=== PATIENT | female | born 1960 | race Caucasian/White ===

== ENCOUNTER 2020-01-26 08:02 | Outpatient (REF) | payer OTHER, SELFPAY ==
[2020-01-26 10:22] LABS: MANUAL DIFF FLAG NO
[2020-01-26 10:30] LABS: Basophils Percent Auto 0.6 % (0-2); Eosinophils Absolute Auto 0.1 X10*3/uL (0.0-0.4); Eosinophils Percent Auto 0.7 % (0-4); Hematocrit 40.8 % (37-47); Imm Gran Abs Auto 0.01 X10*3/uL (0.00-0.03); Imm Gran Pct Auto 0.1 % (0.0-0.4); Lymphocytes Absolute Auto 2.7 X10*3/uL (1.2-4.9); Lymphocytes Percent Auto 40.2 % (20-40); Mean Corpuscular HGB Conc 34.3 g/dl (31.0-35.0); Mean Corpuscular Hemoglobin 29.4 pg (27.0-33.0); Mean Corpuscular Volume 85.5 fL (80-98); Mean Platelet Volume 11.3 fL (9.4-12.3); Monocytes Absolute Auto 0.5 X10*3/uL (0.1-1.2); Monocytes Percent Auto 7.1 % (2-11); Neutrophils Absolute Auto 3.5 X10*3/uL (2.0-8.3); Neutrophils Percent Auto 51.3 % (45-73); Platelet Count 204 X10*3/uL (160-400); Red Blood Count 4.77 X10*6/uL (4.20-5.50); White Blood Count 6.8 X10*3/uL (4.8-10.8)
[2020-01-26 10:58] LABS: Alanine Aminotransferase 24 U/L (0-31); Albumin Level 4.6 g/dL (3.5-5.0); Alkaline Phosphatase 69 U/L (39-117); Anion Gap 15 (12-20); Aspartate Amino Transferase 25 U/L (5-31); Bilirubin Total 1.6 mg/dL (0.0-1.0); Blood Urea Nitrogen 15 mg/dL (9-16); C Reactive Protein 0.08 mg/dL (< or = 0.50); Calcium 9.4 mg/dL (8.4-10.2); Carbon Dioxide 24 mmol/L (22-29); Chloride 105 mmol/L (96-108); Estimated Glomerular Filt Rate > 60; Glucose Random 80 mg/dL (60-115); Potassium 4.6 mmol/l (3.3-5.1); Rheumatoid Factor < 15.0 IU/mL (<15.0); Sodium 139 mmol/L (135-145)
[2020-01-26 11:17] LABS: Erythrocyte Sedimentation Rate 3 MM/HR (0-20)
[2020-01-27 12:12] LABS: Complement C3 101 mg/dL (83-193)
[2020-01-27 19:37] LABS: Thyroglobulin Antibodies 7 IU/mL (< or = 1); Thyroid Peroxidase Antibodies 313 IU/mL (<9)
[2020-01-27 21:58] LABS: Prot Elec - Albumin 4.4 g/dL (3.8-4.8); Prot Elec - Alpha1 0.3 g/dL (0.2-0.3); Prot Elec - Alpha2 0.7 g/dL (0.5-0.9); Prot Elec - Beta 1 0.5 g/dL (0.4-0.6); Prot Elec - Beta 2 0.2 g/dL (0.2-0.5); Prot Elec - Gamma 0.9 g/dL (0.8-1.7)
[2020-01-28 11:52] LABS: Cyclic Citrullinated Peptide <16 UNITS
[2020-01-28 13:27] LABS: Anti DNA DS Antibody <1 IU/mL; Antibody to SS-A Antigen <1.0 NEG AI (<1.0 NEG); Antibody to SS-B Antigen <1.0 NEG AI (<1.0 NEG); SM/Ribonucleoprotein Ab <1.0 NEG AI (<1.0 NEG); Scleroderma 70 Antibody <1.0 NEG AI (<1.0 NEG); Smith Protein <1.0 NEG AI (<1.0 NEG)
[2020-01-29 05:27] LABS: IgA 104 mg/dL (47-310); IgG 931 mg/dL (600-1640); IgM 91 mg/dL (50-300)
[2020-01-30 14:07] LABS: Vitamin D 25-OH, D2 <4 ng/mL; Vitamin D 25-OH, D3 38 ng/mL; Vitamin D 25-OH, Total 38 ng/mL (30-100)
== END 2020-01-26 08:03 | disposition home or self-care (01) ==
LOC: HO.LAB 08:02
PROVIDERS: PCP Internal Medicine; Referring Provider Internal Medicine; Visit Provider Student in an Organized Health Care Education/Training Program
DX: M25.50 Pain in unspecified joint (principal); R76.8 Other specified abnormal immunological findings in serum; Z79.899 Other long term (current) drug therapy; Z87.891 Personal history of nicotine dependence
CPT/HCPCS: 36415; 80053; 82306; 82550; 82784; 84155; 84165; 85025; 85652; 86038; 86039; 86140; 86160; 86200; 86225; 86235; 86334; 86376; 86431; 86800; 99202

== ENCOUNTER → 2020-02-04 08:46 | Outpatient (BNVA) | payer OTHER, SELFPAY | PROVIDERS: Visit Provider Internal Medicine Gastroenterology | DX: Z76.89 Persons encountering health services in other specified circumstances (principal) ==

== ENCOUNTER → 2020-02-23 10:46 | Outpatient (BNVA) | payer OTHER, SELFPAY | PROVIDERS: PCP Internal Medicine; Referring Provider Internal Medicine; Visit Provider Student in an Organized Health Care Education/Training Program | DX: Z76.89 Persons encountering health services in other specified circumstances (principal) ==

== ENCOUNTER 2020-04-04 06:01 | Outpatient (REF) | payer OTHER, SELFPAY ==
[2020-04-04 07:20] LABS: MANUAL DIFF FLAG NO
[2020-04-04 07:21] LABS: Basophils Absolute Auto 0.1 X10*3/uL (0.0-0.2); Basophils Percent Auto 0.6 % (0-2); Eosinophils Absolute Auto 0.1 X10*3/uL (0.0-0.4); Eosinophils Percent Auto 1.5 % (0-4); Hematocrit 41.5 % (37-47); Hemoglobin 13.9 g/dl (12.0-16.0); Imm Gran Abs Auto 0.02 X10*3/uL (0.00-0.03); Imm Gran Pct Auto 0.3 % (0.0-0.4); Lymphocytes Percent Auto 37.4 % (20-40); Mean Corpuscular HGB Conc 33.5 g/dl (31.0-35.0); Mean Corpuscular Hemoglobin 29.1 pg (27.0-33.0); Mean Corpuscular Volume 86.8 fL (80-98); Mean Platelet Volume 11.3 fL (9.4-12.3); Monocytes Absolute Auto 0.6 X10*3/uL (0.1-1.2); Neutrophils Absolute Auto 4.2 X10*3/uL (2.0-8.3); Neutrophils Percent Auto 53.2 % (45-73); Platelet Count 264 X10*3/uL (160-400); Red Blood Count 4.78 X10*6/uL (4.20-5.50); Red Cell Distribution Width 12.3 % (11.0-16.0); White Blood Count 7.9 X10*3/uL (4.8-10.8)
[2020-04-04 08:18] LABS: Alanine Aminotransferase 21 U/L (0-31); Albumin Level 4.4 g/dL (3.5-5.0); Alkaline Phosphatase 71 U/L (39-117); Anion Gap 11 (12-20); Aspartate Amino Transferase 25 U/L (5-31); Bilirubin Total 0.3 mg/dL (0.0-1.0); Blood Urea Nitrogen 18 mg/dL (9-16); Calcium 9.2 mg/dL (8.4-10.2); Carbon Dioxide 26 mmol/L (22-29); Chloride 106 mmol/L (96-108); Cholesterol 149 mg/dL; Estimated Glomerular Filt Rate > 60; Glucose Fasting 95 mg/dL (60-99); HDL Cholesterol 53 mg/dL; LDL Cholesterol Calculated 77 mg/dl; Potassium 4.8 mmol/L (3.3-5.1); Sodium 138 mmol/L (135-145); Total Protein 6.8 g/dL (6.5-8.0); Triglycerides 98 mg/dL
[2020-04-04 08:26] LABS: Free T4 (Free Thyroxine) 1.15 ng/dL (0.71-1.85); Thyroid Stimulating Hormone 2.27 uIU/mL (0.32-4.0)
== END 2020-04-04 06:02 | disposition home or self-care (01) ==
LOC: HO.LAB 06:01
PROVIDERS: Visit Provider Internal Medicine
DX: M79.10 Myalgia, unspecified site (principal); I10 Essential (primary) hypertension; E78.00 Pure hypercholesterolemia, unspecified; E03.9 Hypothyroidism, unspecified
CPT/HCPCS: 36415; 80053; 80061; 84439; 84443; 85025

== ENCOUNTER → 2020-04-07 10:26 | Outpatient (BNVA) | payer OTHER, SELFPAY | PROVIDERS: PCP Internal Medicine; Referring Provider Internal Medicine; Visit Provider Internal Medicine Gastroenterology ==

== ENCOUNTER 2020-04-25 10:14 | Outpatient (REF) | payer OTHER, SELFPAY ==
[2020-04-28 11:42] LABS: HPV mRNA E6/E7 rflx Not Detected (Not Detected)
== END 2020-04-25 10:15 | disposition home or self-care (01) ==
LOC: HO.LAB 10:14
PROVIDERS: PCP Internal Medicine; Visit Provider Advanced Practice Midwife
DX: Z01.419 Encounter for gynecological examination (general) (routine) without abnormal findings (principal); Z11.51 Encounter for screening for human papillomavirus (HPV); N95.2 Postmenopausal atrophic vaginitis
CPT/HCPCS: 36415; 87624; 88142

== ENCOUNTER → 2020-06-29 09:24 | Outpatient (BNVA) | payer OTHER, SELFPAY | PROVIDERS: PCP Internal Medicine; Visit Provider Internal Medicine Cardiovascular Disease | DX: E78.00 Pure hypercholesterolemia, unspecified (principal); I10 Essential (primary) hypertension | CPT/HCPCS: 93005; 99212 ==

== ENCOUNTER → 2020-08-11 09:57 | Outpatient (BNVA) | payer OTHER, SELFPAY | PROVIDERS: PCP Internal Medicine; Visit Provider Internal Medicine Gastroenterology ==

== ENCOUNTER 2020-12-02 06:04 | Outpatient (REF) | payer OTHER, SELFPAY ==
[2020-12-02 06:10] LABS: MANUAL DIFF FLAG NO
[2020-12-02 07:28] LABS: Basophils Absolute Auto 0.1 X10*3/uL (0.0-0.2); Basophils Percent Auto 0.6 % (0-2); Eosinophils Absolute Auto 0.2 X10*3/uL (0.0-0.4); Eosinophils Percent Auto 1.9 % (0-4); Hematocrit 41.2 % (37-47); Hemoglobin 13.9 g/dl (12.0-16.0); Imm Gran Abs Auto 0.03 X10*3/uL (0.00-0.03); Imm Gran Pct Auto 0.4 % (0.0-0.4); Lymphocytes Absolute Auto 2.8 X10*3/uL (1.2-4.9); Lymphocytes Percent Auto 33.9 % (20-40); Mean Corpuscular HGB Conc 33.7 g/dl (31.0-35.0); Mean Corpuscular Hemoglobin 29.5 pg (27.0-33.0); Mean Corpuscular Volume 87.5 fL (80-98); Mean Platelet Volume 10.7 fL (9.4-12.3); Monocytes Absolute Auto 0.6 X10*3/uL (0.1-1.2); Monocytes Percent Auto 7.7 % (2-11); Neutrophils Absolute Auto 4.6 X10*3/uL (2.0-8.3); Neutrophils Percent Auto 55.5 % (45-73); Platelet Count 209 X10*3/uL (160-400); Red Blood Count 4.71 X10*6/uL (4.20-5.50); Red Cell Distribution Width 12.5 % (11.0-16.0); White Blood Count 8.2 X10*3/uL (4.8-10.8)
[2020-12-02 07:50] LABS: Alanine Aminotransferase 25 U/L (0-31); Albumin Level 4.5 g/dL (3.5-5.0); Alkaline Phosphatase 71 U/L (39-117); Anion Gap 11 (12-20); Aspartate Amino Transferase 25 U/L (5-31); Blood Urea Nitrogen 17 mg/dL (9-16); Calcium 9.8 mg/dL (8.4-10.2); Carbon Dioxide 28 mmol/L (22-29); Chloride 105 mmol/L (96-108); Cholesterol 185 mg/dL; Estimated Glomerular Filt Rate > 60; Glucose Fasting 83 mg/dL (60-99); HDL Cholesterol 57 mg/dL; LDL Cholesterol Calculated 107 mg/dl; Potassium 4.7 mmol/L (3.3-5.1); Sodium 139 mmol/L (135-145); Total Protein 7.1 g/dL (6.5-8.0); Triglycerides 107 mg/dL
[2020-12-02 08:09] LABS: Erythrocyte Sedimentation Rate 2 MM/HR (0-20)
[2020-12-02 08:15] LABS: Free T4 (Free Thyroxine) 0.99 ng/dL (0.71-1.85); Thyroid Stimulating Hormone 2.96 uIU/mL (0.32-4.0); Vitamin D 25-OH Total 39.1 ng/mL (>30)
[2020-12-02 10:38] LABS: Appearance Urine CLEAR; Color Urine YELLOW; Glucose Urine UA NEG (NEG); Leukocyte Esterase Urine NEG (NEG); Nitrite Urine NEG (NEG); Specific Gravity - Urine 1.015 (1.005-1.025); UACC Culture Trigger NO; Urine Blood TRACE (NEG); Urine Ketones NEG (NEG); Urine Protein NEG (NEG-TRACE)
[2020-12-02 11:07] LABS: WBC Urine 0 /HPF (0-4)
[2020-12-02 11:08] LABS: Mucus Urine TRACE /LPF; Squamous Epithelial Cell Urine TRACE /LPF
== END 2020-12-02 06:05 | disposition home or self-care (01) ==
LOC: HO.LAB 06:04
PROVIDERS: PCP Internal Medicine; Visit Provider Internal Medicine
DX: M25.50 Pain in unspecified joint (principal); M79.10 Myalgia, unspecified site; I10 Essential (primary) hypertension; E55.9 Vitamin D deficiency, unspecified; E03.9 Hypothyroidism, unspecified; E78.00 Pure hypercholesterolemia, unspecified
CPT/HCPCS: 36415; 80053; 80061; 81001; 81003; 82306; 84439; 84443; 85025; 85652

== ENCOUNTER 2020-12-21 08:05 | Outpatient (REF) | payer OTHER, SELFPAY ==
--- NOTE | ~2020-12-21 | MM_ITS ---
EXAMINATION: MM SCREENING DIGITAL BREAST TOMOSYNTHESIS, BILATERAL CLINICAL INFORMATION: Screening. Asymptomatic. The lifetime risk of breast cancer based on the Tyrer-Cuzick Model is 7%. COMPARISON: Mammography: 11/12/2019, 09/09/2018, outside mammography 11/26/2014 ([facility]). TECHNIQUE: Digital breast tomosynthesis is performed in both the craniocaudal and mediolateral oblique views along with computer-aided detection (CAD). Synthesized 2D images are generated from the tomosynthesis. FINDINGS: The breasts are heterogeneously dense, which may obscure small masses (ACR BI-RADS breast composition Category c). There are no significant masses, abnormal calcifications, or other abnormalities. Parenchymal pattern is similar to prior exams. No developing density. The axilla and skin contours are unremarkable. MM/MM tomosynthesis screening BI IMPRESSION: No mammographic evidence of malignancy. ASSESSMENT: BI-RADS 1: Negative RECOMMENDATION: Routine annual mammography screening. This patient's information was entered into a reminder system with a target due date for their next mammogram.
== END 2020-12-21 08:06 | disposition home or self-care (01) ==
LOC: HO.MAMMO 08:05
PROVIDERS: Visit Provider Internal Medicine
DX: Z12.31 Encounter for screening mammogram for malignant neoplasm of breast (principal)
CPT/HCPCS: 77063; 77067

== ENCOUNTER → 2021-03-20 10:07 | Outpatient (BNVA) | payer OTHER, SELFPAY | PROVIDERS: PCP Internal Medicine; Visit Provider Internal Medicine Gastroenterology ==

== ENCOUNTER 2021-04-15 07:00 | Outpatient (REF) | payer OTHER, SELFPAY ==
[2021-04-15 07:13] LABS: MANUAL DIFF FLAG NO
[2021-04-15 08:03] LABS: Basophils Percent Auto 0.5 % (0-2); Eosinophils Absolute Auto 0.1 X10*3/uL (0.0-0.4); Eosinophils Percent Auto 1.6 % (0-4); Hematocrit 41.7 % (37.0-47.0); Imm Gran Abs Auto 0.03 X10*3/uL (0.00-0.03); Imm Gran Pct Auto 0.4 % (0.0-0.4); Lymphocytes Absolute Auto 3.5 X10*3/uL (1.2-4.9); Lymphocytes Percent Auto 43.3 % (20-40); Mean Corpuscular HGB Conc 33.6 g/dl (31.0-35.0); Mean Corpuscular Hemoglobin 29.5 pg (27.0-33.0); Mean Corpuscular Volume 87.8 fL (80.0-98.0); Mean Platelet Volume 10.9 fL (9.4-12.3); Monocytes Absolute Auto 0.5 X10*3/uL (0.1-1.2); Monocytes Percent Auto 6.1 % (2-11); Neutrophils Absolute Auto 3.9 x10*3/uL (2.0-8.3); Neutrophils Percent Auto 48.1 % (45-73); Platelet Count 239 X10*3/uL (160-400); Red Blood Count 4.75 X10*6/uL (4.20-5.50); Red Cell Distribution Width 12.2 % (11.0-16.0)
[2021-04-15 08:27] LABS: Albumin Level 4.6 g/dL (3.5-5.0)
[2021-04-15 08:29] LABS: Glucose Fasting 81 mg/dL (60-99)
[2021-04-15 08:30] LABS: Total Protein 7.4 g/dL (6.5-8.0)
[2021-04-15 08:31] LABS: Anion Gap 12 (12-20); Bilirubin Total 1.1 mg/dL (0.0-1.0); Carbon Dioxide 27 mmol/L (22-29)
[2021-04-15 08:32] LABS: Alkaline Phosphatase 70 U/L (39-117)
[2021-04-15 08:33] LABS: Estimated Glomerular Filt Rate > 60
[2021-04-15 08:34] LABS: Blood Urea Nitrogen 18 mg/dL (9-16)
[2021-04-15 08:35] LABS: Alanine Aminotransferase 26 U/L (0-31); Aspartate Amino Transferase 27 U/L (5-31); Cholesterol 188 mg/dL; HDL Cholesterol 58 mg/dL
[2021-04-15 08:51] LABS: Appearance Urine CLEAR; Color Urine YELLOW; Glucose Urine UA NEG (NEG); Leukocyte Esterase Urine NEG (NEG); Nitrite Urine NEG (NEG); UACC Culture Trigger NO; Urine Blood TRACE (NEG); Urine Ketones NEG (NEG); Urine Protein NEG (NEG-TRACE)
[2021-04-15 08:52] LABS: Vitamin D 25-OH Total 41.7 ng/mL (>30)
[2021-04-15 08:53] LABS: Chloride 104 mmol/L (96-108); Free T4 (Free Thyroxine) 0.92 ng/dL (0.71-1.85); LDL Cholesterol Calculated 110 mg/dl; Potassium 4.9 mmol/L (3.3-5.1); Sodium 138 mmol/L (135-145); Triglycerides 101 mg/dL
[2021-04-15 09:16] LABS: WBC Urine 0 /HPF (0-4)
== END 2021-04-15 07:01 | disposition home or self-care (01) ==
LOC: HO.LAB 07:00
PROVIDERS: PCP Internal Medicine; Visit Provider Internal Medicine
DX: I10 Essential (primary) hypertension (principal); E55.9 Vitamin D deficiency, unspecified; E03.9 Hypothyroidism, unspecified; E78.00 Pure hypercholesterolemia, unspecified
CPT/HCPCS: 36415; 80053; 80061; 81001; 82306; 84439; 84443; 85025

== ENCOUNTER → 2021-07-19 07:58 | Outpatient (BNVA) | payer OTHER, SELFPAY | PROVIDERS: PCP Internal Medicine; Visit Provider Advanced Practice Midwife | DX: Z01.419 Encounter for gynecological examination (general) (routine) without abnormal findings (principal) ==

== ENCOUNTER 2021-09-04 11:27 | Outpatient (REF) | payer OTHER, SELFPAY ==
--- NOTE | ~2021-09-04 | XR_ITS ---
EXAMINATION: XR TOES, RIGHT CLINICAL INFORMATION: Erythema and swelling of right second toe. COMPARISON: None TECHNIQUE: Frontal, oblique and lateral views of the right toes were obtained. FINDINGS: Bony alignment and mineralization are normal. No fracture or dislocation is seen. There is a small round ossific density noted at the dorsal medial aspect of the distal interphalangeal joint of the right second toe. There is no soft tissue gas or foreign body. XR/XR toe RT min 2V IMPRESSION: A small round ossific density at the dorsal medial aspect of the right second toe represent a tiny avulsion fragment or, alternatively, a degenerative periarticular calcification. Please correlate clinically.
== END 2021-09-04 11:28 | disposition home or self-care (01) ==
LOC: HO.XRAY 11:27
PROVIDERS: PCP Internal Medicine; Visit Provider Internal Medicine
DX: M79.674 Pain in right toe(s) (principal); L81.9 Disorder of pigmentation, unspecified
CPT/HCPCS: 73660

== ENCOUNTER 2021-09-10 | Outpatient (REF) | payer OTHER, SELFPAY ==
[2021-09-15 08:09] LABS: FIT Int Ctl YES; FIT1 NEGATIVE (NEGATIVE); FIT2 NEGATIVE (NEGATIVE)
== END 2021-09-10 00:01 | disposition home or self-care (01) ==
LOC: HO.LNP
PROVIDERS: Visit Provider Internal Medicine Gastroenterology
DX: Z12.11 Encounter for screening for malignant neoplasm of colon (principal)
CPT/HCPCS: 82274

== ENCOUNTER 2021-10-17 15:07 | Outpatient (REF) | payer OTHER, SELFPAY ==
[2021-10-17 15:30] LABS: MANUAL DIFF FLAG NO
[2021-10-17 16:26] LABS: Basophils Absolute Auto 0.1 X10*3/uL (0.0-0.2); Basophils Percent Auto 0.5 % (0-2); Eosinophils Absolute Auto 0.2 X10*3/uL (0.0-0.4); Eosinophils Percent Auto 1.9 % (0-4); Hematocrit 40.9 % (37.0-47.0); Hemoglobin 13.8 g/dl (12.0-16.0); Imm Gran Abs Auto 0.02 X10*3/uL (0.00-0.03); Imm Gran Pct Auto 0.2 % (0.0-0.4); Lymphocytes Absolute Auto 3.8 X10*3/uL (1.2-4.9); Lymphocytes Percent Auto 38.1 % (20-40); Mean Corpuscular HGB Conc 33.7 g/dl (31.0-35.0); Mean Corpuscular Hemoglobin 28.8 pg (27.0-33.0); Mean Corpuscular Volume 85.4 fL (80.0-98.0); Monocytes Absolute Auto 0.7 X10*3/uL (0.1-1.2); Monocytes Percent Auto 6.8 % (2-11); Neutrophils Absolute Auto 5.2 x10*3/uL (2.0-8.3); Neutrophils Percent Auto 52.5 % (45-73); Platelet Count 220 X10*3/uL (160-400); Red Blood Count 4.79 X10*6/uL (4.20-5.50); Red Cell Distribution Width 12.3 % (11.0-16.0); White Blood Count 9.9 X10*3/uL (4.8-10.8)
[2021-10-17 16:52] LABS: Alanine Aminotransferase 22 U/L (0-31); Albumin Level 4.6 g/dL (3.5-5.0); Alkaline Phosphatase 63 U/L (39-117); Anion Gap 15 (12-20); Aspartate Amino Transferase 25 U/L (5-31); Bilirubin Total 0.7 mg/dL (0.0-1.0); Blood Urea Nitrogen 17 mg/dL (9-16); C Reactive Protein 0.11 mg/dL (< or = 0.50); Calcium 9.7 mg/dL (8.4-10.2); Carbon Dioxide 24 mmol/L (22-29); Chloride 102 mmol/L (96-108); Estimated Glomerular Filt Rate > 60; Glucose Random 78 mg/dL (60-115); Potassium 4.4 mmol/L (3.3-5.1); Rheumatoid Factor < 15.0 IU/mL (<15.0); Sodium 137 mmol/L (135-145); Total Protein 7.4 g/dL (6.5-8.0)
[2021-10-17 17:11] LABS: TSH reflex Free T4 4.13 uIU/mL (0.32-4.0); Vitamin D 25-OH Total 41.3 ng/mL (>30)
[2021-10-17 17:15] LABS: Erythrocyte Sedimentation Rate 7 MM/HR (0-20)
[2021-10-19 15:42] LABS: Cyclic Citrullinated Peptide <16 UNITS
[2021-10-24 23:47] LABS: Anti Nuclear Antibody Screen POSITIVE (NEGATIVE)
== END 2021-10-17 15:08 | disposition home or self-care (01) ==
LOC: HO.LAB 15:07
PROVIDERS: PCP Internal Medicine; Visit Provider Internal Medicine
DX: E55.9 Vitamin D deficiency, unspecified (principal); M32.9 Systemic lupus erythematosus, unspecified; M79.7 Fibromyalgia; M25.50 Pain in unspecified joint
CPT/HCPCS: 36415; 80053; 82306; 84439; 84443; 85025; 85652; 86038; 86039; 86140; 86200; 86431

== ENCOUNTER → 2021-11-13 08:53 | Outpatient (BNVA) | payer OTHER, SELFPAY | PROVIDERS: PCP Internal Medicine; Referring Provider Internal Medicine; Visit Provider Internal Medicine Cardiovascular Disease | DX: E78.00 Pure hypercholesterolemia, unspecified (principal); I10 Essential (primary) hypertension | CPT/HCPCS: 93005; 99212 ==

== ENCOUNTER 2021-11-17 10:30 | Outpatient (REF) | payer OTHER, SELFPAY ==
[2021-11-17 10:54] LABS: MANUAL DIFF FLAG NO
[2021-11-17 11:34] LABS: Basophils Absolute Auto 0.1 X10*3/uL (0.0-0.2); Basophils Percent Auto 0.4 % (0-2); Eosinophils Absolute Auto 0.1 X10*3/uL (0.0-0.4); Eosinophils Percent Auto 0.4 % (0-4); Hematocrit 40.8 % (37.0-47.0); Hemoglobin 13.9 g/dl (12.0-16.0); Imm Gran Abs Auto 0.05 X10*3/uL (0.00-0.03); Imm Gran Pct Auto 0.4 % (0.0-0.4); Lymphocytes Absolute Auto 4.1 X10*3/uL (1.2-4.9); Lymphocytes Percent Auto 30.4 % (20-40); Mean Corpuscular HGB Conc 34.1 g/dl (31.0-35.0); Mean Corpuscular Hemoglobin 29.2 pg (27.0-33.0); Mean Corpuscular Volume 85.7 fL (80.0-98.0); Mean Platelet Volume 10.8 fL (9.4-12.3); Monocytes Percent Auto 7.1 % (2-11); Neutrophils Absolute Auto 8.4 x10*3/uL (2.0-8.3); Neutrophils Percent Auto 61.3 % (45-73); Platelet Count 250 X10*3/uL (160-400); Red Blood Count 4.76 X10*6/uL (4.20-5.50); Red Cell Distribution Width 12.4 % (11.0-16.0); White Blood Count 13.6 X10*3/uL (4.8-10.8)
[2021-11-17 12:20] LABS: Alanine Aminotransferase 38 U/L (0-31); Alkaline Phosphatase 71 U/L (39-117); Anion Gap 16 (12-20); Aspartate Amino Transferase 27 U/L (5-31); Bilirubin Total 0.6 mg/dL (0.0-1.0); Blood Urea Nitrogen 20 mg/dL (9-16); C Reactive Protein 0.11 mg/dL (< or = 0.50); Calcium 10.4 mg/dL (8.4-10.2); Carbon Dioxide 28 mmol/L (22-29); Chloride 100 mmol/L (96-108); Estimated Glomerular Filt Rate > 60; Glucose Random 89 mg/dL (60-115); Sodium 140 mmol/L (135-145); Total Protein 7.7 g/dL (6.5-8.0)
[2021-11-17 13:04] LABS: Erythrocyte Sedimentation Rate 6 MM/HR (0-20)
[2021-11-17 13:47] LABS: Appearance Urine Clear; Color Urine Yellow; Glucose Urine UA Negative (Negative); Leukocyte Esterase Urine Negative (Negative); Nitrite Urine Negative (Negative); PH 6.5 (5.0-9.0); Specific Gravity - Urine <= 1.005 (1.005-1.025); Urine Blood Negative (Negative); Urine Ketones Negative (Negative); Urine Protein Negative (Neg-Trace)
[2021-11-17 13:50] LABS: Bacteria Urine None Seen (None Seen); Hyaline Casts Urine 0-2 /LPF (0-2); RBC Urine 0-2 /HPF (0-2); Squamous Epithelial Cell Urine 0-2 /HPF (0-2); WBC Urine 0-5 /HPF (0-5)
[2021-11-17 14:10] LABS: Creatinine Urine 16.76 mg/dL; Total Protein Urine Random < 7 mg/dL (<12)
[2021-11-17 16:25] LABS: Phosphorus 3.7 mg/dL (2.7-4.5)
[2021-11-20 12:07] LABS: Complement C3 105 mg/dL (83-193)
[2021-11-20 17:01] LABS: Anti DNA DS Antibody <1 IU/mL; Antibody to SS-A Antigen <1.0 NEG AI (<1.0 NEG); Antibody to SS-B Antigen <1.0 NEG AI (<1.0 NEG); SM/Ribonucleoprotein Ab <1.0 NEG AI (<1.0 NEG); Smith Protein <1.0 NEG AI (<1.0 NEG)
[2021-11-20 18:56] LABS: IgA 126 mg/dL (70-320); IgG 1139 mg/dL (600-1540); IgM 94 mg/dL (50-300)
[2021-11-20 21:07] LABS: Prot Elec - Albumin 4.9 g/dL (3.8-4.8); Prot Elec - Alpha1 0.3 g/dL (0.2-0.3); Prot Elec - Alpha2 0.8 g/dL (0.5-0.9); Prot Elec - Beta 1 0.5 g/dL (0.4-0.6); Prot Elec - Beta 2 0.2 g/dL (0.2-0.5); Prot Elec - Gamma 1.1 g/dL (0.8-1.7); Prot Elec - Total Protein 7.8 g/dL (6.1-8.1)
[2021-11-21 23:47] LABS: Beta-2 Glycoprotein IgA <2.0 U/mL (<20.0); Beta-2 Glycoprotein IgG <2.0 U/mL (<20.0); Beta-2 Glycoprotein IgM 2.8 U/mL (<20.0)
[2021-11-22 05:56] LABS: DRVVT 1:1 Mix Interpretation Not Indicated; PTT (LAC) Screen 32 sec (<=40)
[2021-11-22 15:52] LABS: Vitamin D 25-OH, D2 <4 ng/mL; Vitamin D 25-OH, D3 37 ng/mL; Vitamin D 25-OH, Total 37 ng/mL (30-100)
[2021-11-22 19:07] LABS: VITAMIN D (1,25 OH) D3 55 pg/mL; Vit D (1,25-Dihydroxy) Total 55 pg/mL (18-72); Vitamin D (1,25 OH) D2 <8 pg/mL
[2021-11-23 13:02] LABS: Cardiolipin IgG Ab <2.0 GPL-U/mL; Cardiolipin IgM Ab <2.0 MPL-U/mL
== END 2021-11-17 10:31 | disposition home or self-care (01) ==
LOC: HO.10HDL 10:30
PROVIDERS: Visit Provider Student in an Organized Health Care Education/Training Program
DX: M32.9 Systemic lupus erythematosus, unspecified (principal); R76.8 Other specified abnormal immunological findings in serum; E83.52 Hypercalcemia; M79.7 Fibromyalgia
CPT/HCPCS: 36415; 80053; 81001; 82306; 82652; 82784; 83735; 84100; 84156; 84165; 85025; 85597; 85613; 85652; 85730; 86140; 86146; 86147; 86160; 86225; 86235; 86334; 99212

== ENCOUNTER 2021-11-30 06:07 | Outpatient (REF) | payer OTHER, SELFPAY ==
[2021-11-30 11:31] LABS: Cholesterol 200 mg/dL; HDL Cholesterol 61 mg/dL; LDL Cholesterol Calculated 124 mg/dl; Triglycerides 77 mg/dL
== END 2021-11-30 06:08 | disposition home or self-care (01) ==
LOC: HO.HMGCLDS 06:07
PROVIDERS: PCP Internal Medicine; Visit Provider Internal Medicine
DX: E78.00 Pure hypercholesterolemia, unspecified (principal)
CPT/HCPCS: 36415; 80061

== ENCOUNTER → 2021-12-15 07:57 | Outpatient (BNVA) | payer OTHER, SELFPAY | PROVIDERS: PCP Internal Medicine; Visit Provider Student in an Organized Health Care Education/Training Program | DX: L93.2 Other local lupus erythematosus (principal); Z51.81 Encounter for therapeutic drug level monitoring; Z79.899 Other long term (current) drug therapy; M79.7 Fibromyalgia; R74.01 Elevation of levels of liver transaminase levels | CPT/HCPCS: 99212 ==

== ENCOUNTER 2021-12-26 08:08 | Outpatient (REF) | payer OTHER, SELFPAY ==
--- NOTE | ~2021-12-26 | MM_ITS ---
EXAMINATION: MM SCREENING DIGITAL BREAST TOMOSYNTHESIS, BILATERAL CLINICAL INFORMATION: Screening. Asymptomatic. The lifetime risk of breast cancer based on the Tyrer-Cuzick Model is 6.2%. COMPARISON: Mammography: 12/21/2020 and studies dating back to 11/26/2014. TECHNIQUE: Digital breast tomosynthesis is performed in both the craniocaudal and mediolateral oblique views along with computer-aided detection (CAD). Synthesized 2-D images are generated from the tomosynthesis. FINDINGS: The breasts are heterogeneously dense, which may obscure small masses (ACR BI-RADS breast composition Category c). There is a developing tight grouping of microcalcifications about the upper outer aspect of the right breast approximately 7 cm from the nipple, for which spot magnification views in craniocaudal and 90-degree mediolateral views are recommended. There is stable appearance of the left breast with no new abnormal dominant mass or suspicious grouping of microcalcifications. MM/MM tomosynthesis screening BI IMPRESSION: Right breast calcifications for further evaluation, as described. ASSESSMENT: BI-RADS 0: Incomplete - Need Additional Imaging Evaluation RECOMMENDATION: 1. Additional views of the right breast. 2. Targeted ultrasound if warranted after review of the additional views. 3. Radiology department staff will contact the patient for additional imaging. This patient's information was entered into a reminder system with a target due date for their next mammogram.
== END 2021-12-26 08:09 | disposition home or self-care (01) ==
LOC: HO.MAMMO 08:08
PROVIDERS: Visit Provider Internal Medicine
DX: Z12.31 Encounter for screening mammogram for malignant neoplasm of breast (principal)
CPT/HCPCS: 77063; 77067

== ENCOUNTER 2022-01-01 08:48 | Outpatient (REF) | payer OTHER, SELFPAY ==
--- NOTE | ~2022-01-01 | MM_ITS ---
EXAMINATION: MM DIAGNOSTIC DIGITAL MAMMOGRAPHY, RIGHT CLINICAL INFORMATION: Recall from screening for tightly grouped calcifications posterior 11:30 right breast. COMPARISON: Mammography: 12/26/2021, 12/21/2020, 11/12/2019 TECHNIQUE: Digital mammography is performed in the following views: Magnification CC x2, magnification ML. FINDINGS: The breasts are heterogeneously dense, which may obscure small masses (ACR BI-RADS breast composition Category c). The calcifications for further assessment are tightly grouped, coarse amorphous. This represents change from prior imaging. Results are discussed with the patient at time of visit. Management options discussed with patient. Patient is in favor of stereotactic sampling. MM/MM added views RT IMPRESSION: -Multiple tightly grouped amorphous coarse calcifications posterior 11:30 right breast. ASSESSMENT: BI-RADS 4: Suspicious (subcategory 4A: Low suspicion for malignancy) RECOMMENDATION: Stereotactic sampling right breast calcifications. This patient's information was entered into a reminder system with a target due date for their next mammogram.
== END 2022-01-01 08:49 | disposition home or self-care (01) ==
LOC: HO.MAMMO 08:48
PROVIDERS: PCP Internal Medicine; Visit Provider Internal Medicine
DX: R92.1 Mammographic calcification found on diagnostic imaging of breast (principal)
CPT/HCPCS: 77065

== ENCOUNTER 2022-01-04 09:34 | Outpatient (REF) | payer OTHER, SELFPAY ==
--- NOTE | ~2022-01-04 | MM_ITS ---
EXAMINATION: STEREOTACTIC TOMOSYNTHESIS-GUIDED VACUUM-ASSISTED BREAST BIOPSY, RIGHT SPECIMEN RADIOGRAPH, RIGHT POST PROCEDURE DIGITAL MAMMOGRAM, RIGHT CLINICAL INFORMATION: Tightly grouped amorphous coarse calcifications posterior central 11:30 right breast. COMPARISON: Mammography 01/01/2022, 12/26/2021, 12/21/2020. TECHNIQUE/PROCEDURE: Informed consent was obtained from the patient after discussion of the benefits, risks, and alternatives to biopsy today. Patient appeared to understand. Gave opportunity for questions. Patient signed consent form. BIOPSY TABLE: [employer]ify Affirm Prone Biopsy System. LESION: Tightly grouped amorphous coarse calcifications posterior central 11:30 right breast. LOCAL ANESTHESIA: 10 mL carbonated 1% lidocaine; 10 mL 2% lidocaine with epinephrine. DERMATOTOMY: Single skin theresa dermatotomy performed. NEEDLE: N[employer] Fiftyiva 9-gauge vacuum assisted core biopsy device. APPROACH: Craniocaudal. TARGETING: Combination of digital breast tomosynthesis and stereotactic digital mammography used for targeting. CORES: 7. CLIP: Qwikwire SecurMark Cylinder-shaped marker. SPECIMEN RADIOGRAPH: Specimen radiograph is taken in separate room using digital mammography. The index calcifications are in the excised cores. There are at least 20 calcifications in the cores. POST PROCEDURE UNILATERAL DIGITAL MAMMOGRAM: The post biopsy mammogram is performed in separate room using separate digital mammography equipment from the biopsy procedure. CC and ML views are obtained. The breasts are heterogeneously dense, which may obscure small masses (breast composition category: c). The clip marker is in position. The calcifications are markedly decreased at the biopsy site. No gross hematoma. The patient tolerated the procedure well. No immediate complications. Home instructions reviewed with the patient. Final pathology results are pending. MM/MM stereotactic biopsy RT IMPRESSION: 1. Digital tomosynthesis-guided core biopsy right breast with clip placement. 2. Specimen radiograph taken and post procedure mammogram. There is satisfactory positioning of the biopsy clip. 3. Final pathology results pending. An addendum report will be issued.
[2022-01-04] MEDS: Lidocaine HCl 1 % 20 ML VIAL 10 ML SUBCUT (11:22)
[2022-01-04] MEDS: Sodium Bicarbonate 8.4% 50 MEQ/50 ML VIAL SUBCUT (11:23)
[2022-01-04] MEDS: Lidocaine HCl 2 % 20 ML VIAL 10 ML SUBCUT (11:25)
== END 2022-01-04 09:35 | disposition home or self-care (01) ==
LOC: HO.MAMMO 09:34
PROVIDERS: PCP Internal Medicine; Visit Provider Surgery
DX: R92.1 Mammographic calcification found on diagnostic imaging of breast (principal)
CPT/HCPCS: 19081; 88305; 99202; A4648

== ENCOUNTER → 2022-01-10 09:30 | Outpatient (BNVA) | payer OTHER, SELFPAY | PROVIDERS: PCP Internal Medicine; Visit Provider Surgery | DX: R92.1 Mammographic calcification found on diagnostic imaging of breast (principal) | CPT/HCPCS: 99212 ==

== ENCOUNTER 2022-01-11 06:11 | Outpatient (REF) | payer OTHER, SELFPAY ==
[2022-01-11 11:24] LABS: MANUAL DIFF FLAG NO
[2022-01-11 11:30] LABS: Appearance Urine Clear; Color Urine Yellow; Glucose Urine UA Negative (Negative); Leukocyte Esterase Urine Negative (Negative); Nitrite Urine Negative (Negative); PH 6.5 (5.0-9.0); Specific Gravity - Urine <= 1.005 (1.005-1.025); Urine Blood Negative (Negative); Urine Ketones Negative (Negative); Urine Protein Negative (Neg-Trace)
[2022-01-11 11:45] LABS: Basophils Absolute Auto 0.1 X10*3/uL (0.0-0.2); Eosinophils Absolute Auto 0.3 X10*3/uL (0.0-0.4); Eosinophils Percent Auto 4.2 % (0-4); Hematocrit 40.3 % (37.0-47.0); Hemoglobin 13.5 g/dl (12.0-16.0); Imm Gran Abs Auto 0.02 X10*3/uL (0.00-0.03); Imm Gran Pct Auto 0.3 % (0.0-0.4); Lymphocytes Absolute Auto 2.9 X10*3/uL (1.2-4.9); Lymphocytes Percent Auto 37.6 % (20-40); Mean Corpuscular HGB Conc 33.5 g/dl (31.0-35.0); Mean Corpuscular Hemoglobin 29.2 pg (27.0-33.0); Mean Platelet Volume 10.9 fL (9.4-12.3); Monocytes Absolute Auto 0.6 X10*3/uL (0.1-1.2); Monocytes Percent Auto 7.3 % (2-11); Neutrophils Absolute Auto 3.9 x10*3/uL (2.0-8.3); Neutrophils Percent Auto 49.6 % (45-73); Platelet Count 224 X10*3/uL (160-400); Red Blood Count 4.63 X10*6/uL (4.20-5.50); Red Cell Distribution Width 12.5 % (11.0-16.0); White Blood Count 7.8 X10*3/uL (4.8-10.8)
[2022-01-11 13:58] LABS: Alanine Aminotransferase 27 U/L (0-31); Albumin Level 4.5 g/dL (3.5-5.0); Alkaline Phosphatase 56 U/L (39-117); Anion Gap 14 (12-20); Aspartate Amino Transferase 27 U/L (5-31); Bilirubin Total 0.7 mg/dL (0.0-1.0); Blood Urea Nitrogen 12 mg/dL (9-16); Calcium 9.5 mg/dL (8.4-10.2); Carbon Dioxide 24 mmol/L (22-29); Chloride 106 mmol/L (96-108); Cholesterol 194 mg/dL; Estimated Glomerular Filt Rate > 60; Free T4 (Free Thyroxine) 0.92 ng/dL (0.71-1.85); Glucose Fasting 84 mg/dL (60-99); HDL Cholesterol 67 mg/dL; LDL Cholesterol Calculated 107 mg/dl; Magnesium 2.1 mg/dL (1.6-2.6); Phosphorus 3.7 mg/dL (2.7-4.5); Potassium 4.6 mmol/L (3.3-5.1); Sodium 139 mmol/L (135-145); Thyroid Stimulating Hormone 3.81 uIU/mL (0.32-4.0); Triglycerides 100 mg/dL; Vitamin D 25-OH Total 36.8 ng/mL (>30)
[2022-01-12 12:22] LABS: Calcium (PTHI) 9.4 mg/dL (8.6-10.4); PTHI 53 pg/mL (16-77)
== END 2022-01-11 06:12 | disposition home or self-care (01) ==
LOC: HO.HMGCLDS 06:11
PROVIDERS: Student in an Organized Health Care Education/Training Program; PCP Internal Medicine; Visit Provider Internal Medicine
DX: E83.52 Hypercalcemia (principal); E55.9 Vitamin D deficiency, unspecified; I10 Essential (primary) hypertension; E78.00 Pure hypercholesterolemia, unspecified; E03.9 Hypothyroidism, unspecified
CPT/HCPCS: 36415; 80053; 80061; 81003; 82306; 83735; 83970; 84100; 84439; 84443; 85025

== ENCOUNTER 2022-04-11 07:12 | Outpatient (REF) | payer OTHER, SELFPAY ==
[2022-04-11 11:21] LABS: MANUAL DIFF FLAG NO
[2022-04-11 11:31] LABS: Appearance Urine Clear; Color Urine Yellow; Glucose Urine UA Negative (Negative); Leukocyte Esterase Urine Large (3+) (Negative); Nitrite Urine Negative (Negative); PH 7.5 (5.0-9.0); UMIC TRIGGER UA YES; Urine Blood Trace (Negative); Urine Ketones Negative (Negative); Urine Protein Negative (Neg-Trace)
[2022-04-11 11:35] LABS: Bacteria Urine Trace (None Seen); Hyaline Casts Urine 0-2 /LPF (0-2); RBC Urine 0-2 /HPF (0-2)
[2022-04-11 12:03] LABS: Basophils Percent Auto 0.6 % (0-2); Eosinophils Absolute Auto 0.2 X10*3/uL (0.0-0.4); Hematocrit 40.6 % (37.0-47.0); Hemoglobin 13.5 g/dl (12.0-16.0); Imm Gran Abs Auto 0.02 X10*3/uL (0.00-0.03); Imm Gran Pct Auto 0.3 % (0.0-0.4); Lymphocytes Absolute Auto 2.6 X10*3/uL (1.2-4.9); Lymphocytes Percent Auto 35.8 % (20-40); Mean Corpuscular HGB Conc 33.3 g/dl (31.0-35.0); Mean Corpuscular Volume 87.1 fL (80.0-98.0); Mean Platelet Volume 11.1 fL (9.4-12.3); Monocytes Absolute Auto 0.5 X10*3/uL (0.1-1.2); Monocytes Percent Auto 6.5 % (2-11); Neutrophils Absolute Auto 3.9 x10*3/uL (2.0-8.3); Neutrophils Percent Auto 53.8 % (45-73); Platelet Count 209 X10*3/uL (160-400); Red Blood Count 4.66 X10*6/uL (4.20-5.50); White Blood Count 7.2 X10*3/uL (4.8-10.8)
[2022-04-11 12:12] LABS: Creatinine Urine 57.12 mg/dL; Total Protein Urine Random < 7 mg/dL (<12)
[2022-04-11 12:18] LABS: Alanine Aminotransferase 32 U/L (0-31); Albumin Level 4.4 g/dL (3.5-5.0); Alkaline Phosphatase 62 U/L (39-117); Anion Gap 12 (12-20); Aspartate Amino Transferase 27 U/L (5-31); Bilirubin Total 0.8 mg/dL (0.0-1.0); Blood Urea Nitrogen 14 mg/dL (9-16); C Reactive Protein < 0.10 mg/dL (< or = 0.50); Calcium 9.4 mg/dL (8.4-10.2); Carbon Dioxide 26 mmol/L (22-29); Chloride 107 mmol/L (96-108); Cholesterol 202 mg/dL; Estimated Glomerular Filt Rate > 60; Glucose Fasting 89 mg/dL (60-99); Glucose Random 89 mg/dL (60-115); HDL Cholesterol 59 mg/dL; LDL Cholesterol Calculated 123 mg/dl; Potassium 4.5 mmol/L (3.3-5.1); Sodium 140 mmol/L (135-145); Total Protein 6.7 g/dL (6.5-8.0); Triglycerides 102 mg/dL
[2022-04-11 12:34] LABS: Free T4 (Free Thyroxine) 0.98 ng/dL (0.71-1.85); Thyroid Stimulating Hormone 2.38 uIU/mL (0.32-4.0)
[2022-04-11 12:55] LABS: Erythrocyte Sedimentation Rate 4 MM/HR (0-20)
[2022-04-13 15:43] LABS: Complement C3 50 mg/dL (83-193)
[2022-04-13 23:18] LABS: Anti DNA DS Antibody <1 IU/mL
[2022-04-14 12:54] LABS: Soluble Liver Ag Autoantibody <20.1 U (0.0-20.0)
[2022-04-16 16:08] LABS: Mitochondrial Antibodies NEGATIVE (NEGATIVE)
[2022-04-17 12:13] LABS: Liver Kidney Microsomal Ab <=20.0 U (<=20.0)
[2022-04-17 22:24] LABS: Smooth Muscle Antibody <20 U (<20)
== END 2022-04-11 07:13 | disposition home or self-care (01) ==
LOC: HO.HMGCLDS 07:12
PROVIDERS: Student in an Organized Health Care Education/Training Program; Absent Provider Emergency Medicine; PCP Internal Medicine; Visit Provider Internal Medicine
DX: E78.00 Pure hypercholesterolemia, unspecified (principal); E03.9 Hypothyroidism, unspecified; L93.2 Other local lupus erythematosus; Z79.899 Other long term (current) drug therapy
CPT/HCPCS: 36415; 80053; 80061; 80220; 81001; 83520; 84156; 84439; 84443; 85025; 85652; 86015; 86140; 86160; 86225; 86255; 86256; 86376

== ENCOUNTER 2022-06-01 12:02 | Outpatient (REF) | payer OTHER, SELFPAY ==
[2022-06-01 13:55] LABS: MANUAL DIFF FLAG NO
[2022-06-01 14:02] LABS: Basophils Absolute Auto 0.1 X10*3/uL (0.0-0.2); Basophils Percent Auto 0.9 % (0-2); Eosinophils Absolute Auto 0.2 X10*3/uL (0.0-0.4); Hematocrit 37.1 % (37.0-47.0); Hemoglobin 12.4 g/dl (12.0-16.0); Imm Gran Abs Auto 0.01 X10*3/uL (0.00-0.03); Imm Gran Pct Auto 0.1 % (0.0-0.4); Lymphocytes Absolute Auto 3.4 X10*3/uL (1.2-4.9); Lymphocytes Percent Auto 38.3 % (20-40); Mean Corpuscular HGB Conc 33.4 g/dl (31.0-35.0); Mean Corpuscular Hemoglobin 29.3 pg (27.0-33.0); Mean Corpuscular Volume 87.7 fL (80.0-98.0); Mean Platelet Volume 10.6 fL (9.4-12.3); Monocytes Absolute Auto 0.6 X10*3/uL (0.1-1.2); Neutrophils Absolute Auto 4.6 x10*3/uL (2.0-8.3); Neutrophils Percent Auto 51.7 % (45-73); Platelet Count 253 X10*3/uL (160-400); Red Blood Count 4.23 X10*6/uL (4.20-5.50); Red Cell Distribution Width 12.9 % (11.0-16.0); White Blood Count 8.9 X10*3/uL (4.8-10.8)
[2022-06-01 14:05] LABS: Appearance Urine Clear; Color Urine Yellow; Glucose Urine UA Negative (Negative); Leukocyte Esterase Urine Trace (Negative); Nitrite Urine Negative (Negative); PH 6.5 (5.0-9.0); Specific Gravity - Urine <= 1.005 (1.005-1.025); UMIC TRIGGER UA YES; Urine Blood Negative (Negative); Urine Ketones Negative (Negative); Urine Protein Negative (Neg-Trace)
[2022-06-01 14:09] LABS: Bacteria Urine None Seen (None Seen); Hyaline Casts Urine 0-2 /LPF (0-2); RBC Urine 0-2 /HPF (0-2); Squamous Epithelial Cell Urine 0-2 /HPF (0-2); WBC Urine 0-5 /HPF (0-5)
[2022-06-01 14:21] LABS: Alanine Aminotransferase 29 U/L (0-31); Albumin Level 4.3 g/dL (3.5-5.0); Alkaline Phosphatase 61 U/L (39-117); Anion Gap 12 (12-20); Aspartate Amino Transferase 28 U/L (5-31); Bilirubin Total 0.5 mg/dL (0.0-1.0); Blood Urea Nitrogen 18 mg/dL (9-16); C Reactive Protein < 0.10 mg/dL (< or = 0.50); Calcium 9.4 mg/dL (8.4-10.2); Carbon Dioxide 26 mmol/L (22-29); Chloride 104 mmol/L (96-108); Estimated Glomerular Filt Rate > 60; Glucose Random 83 mg/dL (60-115); Potassium 4.8 mmol/L (3.3-5.1); Sodium 137 mmol/L (135-145); Total Protein 6.8 g/dL (6.5-8.0)
[2022-06-01 14:40] LABS: Creatinine Urine 20.02 mg/dL; Total Protein Urine Random < 7 mg/dL (<12)
[2022-06-01 14:46] LABS: Erythrocyte Sedimentation Rate 5 MM/HR (0-20)
[2022-06-04 19:43] LABS: Complement C3 91 mg/dL (83-193)
[2022-06-04 20:52] LABS: Anti DNA DS Antibody <1 IU/mL
== END 2022-06-01 12:03 | disposition home or self-care (01) ==
LOC: HO.HMGCLDS 12:02
PROVIDERS: PCP Internal Medicine; Visit Provider Student in an Organized Health Care Education/Training Program
DX: M32.9 Systemic lupus erythematosus, unspecified (principal)
CPT/HCPCS: 36415; 80053; 81001; 84156; 85025; 85652; 86140; 86160; 86225

== ENCOUNTER → 2022-06-12 13:33 | Outpatient (BNVA) | payer OTHER, SELFPAY | PROVIDERS: PCP Internal Medicine; Visit Provider Student in an Organized Health Care Education/Training Program | DX: M32.19 Other organ or system involvement in systemic lupus erythematosus (principal); M79.7 Fibromyalgia; Z51.81 Encounter for therapeutic drug level monitoring; Z79.899 Other long term (current) drug therapy | CPT/HCPCS: 99212 ==

== ENCOUNTER 2022-07-12 08:10 | Outpatient (REF) | payer OTHER, SELFPAY ==
--- NOTE | ~2022-07-12 | MM_ITS ---
EXAMINATION: MM DIAGNOSTIC DIGITAL BREAST TOMOSYNTHESIS, BILATERAL US DIAGNOSTIC ULTRASOUND BREAST, BILATERAL CLINICAL INFORMATION: Bilateral intermittent breast pain for approximately one month, more extensive and slightly greater on right. Personal history lupus and fibromyalgia. Benign right stereotactic biopsy 01/04/2022 (breast tissue with fibrocystic changes, columnar cell hyperplasia and calcifications; no atypia or malignancy identified. The lifetime risk of breast cancer based on the Tyrer-Cuzick Model is 7%. COMPARISON: Mammography: 01/04/2022, 01/01/2022, 12/26/2021, 12/21/2020, 11/12/2019 TECHNIQUE: Digital breast tomosynthesis is performed in both the craniocaudal and mediolateral oblique views along with computer-aided detection (CAD). Synthesized 2D images are generated from the tomosynthesis. Ultrasound of both breasts is targeted to the areas of clinical concern. Patient is able to point to the areas of concern at time of imaging. Grayscale imaging and color Doppler are performed without and with harmonics. FINDINGS: The breasts are heterogeneously dense, which may obscure small masses (ACR BI-RADS breast composition Category c). There are no significant masses, abnormal calcifications, or other abnormalities. Parenchymal pattern is similar to prior studies. There is no developing density or architectural abnormality. There is biopsy clip marker posterior central 11:30 right breast. No recurrent calcifications or scarring. The axilla are unremarkable. No skin thickening or coarsening of the Al's ligaments. Ultrasound bilateral breasts demonstrate no cystic or solid mass, architectural abnormality, or focal duct ectasia. No skin thickening or edema tracking in soft tissue planes. Results are discussed with the patient at time of visit. MM/MM tomosynthesis diagnostic BI IMPRESSION: -No mammographic evidence of malignancy or inflammatory changes. -Unremarkable bilateral ultrasound. ASSESSMENT: BI-RADS 1: Negative RECOMMENDATION: 1. Patient's bilateral breast pain should be managed based on the clinical impression. 2. Otherwise, routine annual screening mammography. This patient's information was entered into a reminder system with a target due date for their next mammogram.
== END 2022-07-12 08:11 | disposition home or self-care (01) ==
LOC: HO.MAMMO 08:10
PROVIDERS: PCP Internal Medicine; Visit Provider Internal Medicine
DX: N64.4 Mastodynia (principal)
CPT/HCPCS: 76642; 77062; 77066

== ENCOUNTER → 2022-07-25 07:57 | Outpatient (BNVA) | payer OTHER, SELFPAY | PROVIDERS: PCP Internal Medicine; Visit Provider Advanced Practice Midwife ==

== ENCOUNTER 2022-08-10 06:14 | Outpatient (REF) | payer OTHER, SELFPAY ==
[2022-08-10 11:17] LABS: MANUAL DIFF FLAG NO
[2022-08-10 11:30] LABS: Basophils Absolute Auto 0.1 X10*3/uL (0.0-0.2); Basophils Percent Auto 1.1 % (0-2); Eosinophils Absolute Auto 0.3 X10*3/uL (0.0-0.4); Hemoglobin 13.6 g/dl (12.0-16.0); Imm Gran Abs Auto 0.02 X10*3/uL (0.00-0.03); Imm Gran Pct Auto 0.3 % (0.0-0.4); Lymphocytes Percent Auto 32.3 % (20-40); Mean Corpuscular HGB Conc 32.4 g/dl (31.0-35.0); Mean Corpuscular Hemoglobin 28.9 pg (27.0-33.0); Mean Corpuscular Volume 89.2 fL (80.0-98.0); Mean Platelet Volume 10.8 fL (9.4-12.3); Monocytes Absolute Auto 0.7 X10*3/uL (0.1-1.2); Monocytes Percent Auto 10.6 % (2-11); Neutrophils Absolute Auto 3.2 x10*3/uL (2.0-8.3); Neutrophils Percent Auto 51.7 % (45-73); Platelet Count 209 X10*3/uL (160-400); Red Blood Count 4.71 X10*6/uL (4.20-5.50); Red Cell Distribution Width 13.3 % (11.0-16.0); White Blood Count 6.3 X10*3/uL (4.8-10.8)
[2022-08-10 12:10] LABS: Alanine Aminotransferase 24 U/L (0-31); Albumin Level 4.4 g/dL (3.5-5.0); Alkaline Phosphatase 59 U/L (39-117); Anion Gap 11 (12-20); Aspartate Amino Transferase 25 U/L (5-31); Bilirubin Total 0.8 mg/dL (0.0-1.0); Blood Urea Nitrogen 12 mg/dL (9-16); Calcium 10.1 mg/dL (8.4-10.2); Carbon Dioxide 30 mmol/L (22-29); Chloride 105 mmol/L (96-108); Cholesterol 174 mg/dL; Estimated Glomerular Filt Rate > 60; Glucose Fasting 80 mg/dL (60-99); HDL Cholesterol 61 mg/dL; LDL Cholesterol Calculated 89 mg/dl; Potassium 5.1 mmol/L (3.3-5.1); Sodium 141 mmol/L (135-145); Total Protein 7.5 g/dL (6.5-8.0); Triglycerides 124 mg/dL
[2022-08-10 12:18] LABS: Free T4 (Free Thyroxine) 0.94 ng/dL (0.71-1.85)
[2022-08-10 13:39] LABS: Vitamin D 25-OH Total 44.6 ng/mL (>30)
[2022-08-14 02:43] LABS: Lyme Abs Screen <0.90 index
== END 2022-08-10 06:15 | disposition home or self-care (01) ==
LOC: HO.HMGCLDS 06:14
PROVIDERS: PCP Internal Medicine; Visit Provider Internal Medicine
DX: E78.00 Pure hypercholesterolemia, unspecified (principal); E03.9 Hypothyroidism, unspecified; M79.7 Fibromyalgia; R21 Rash and other nonspecific skin eruption; R53.83 Other fatigue; E55.9 Vitamin D deficiency, unspecified; I10 Essential (primary) hypertension
CPT/HCPCS: 36415; 80053; 80061; 82306; 84439; 84443; 85025; 86617; 86618

== ENCOUNTER 2022-09-13 09:59 | Outpatient (AMB) | payer OTHER, SELFPAY ==
--- NOTE | 2022-09-13 10:04 | A.OFFVIS_ITS ---
Intake Vital Signs 09/13/22 10:09 Height 5 ft 3 in Weight 127 lb BMI 22.5 BP 121/71 Blood Pressure Location Lt brachial Position Sitting Pulse 73 Intake Visit Reasons: 6 mth follow up GERD Intake Note: Patient follow up GERD. Patient cc: nauseas and acid reflex on and off. Rubber Stamp Dies Inspector Required: No Accompanied by: Self / Same As Patient Allergies gabapentin [GABAPENTIN] Allergy (Intermediate, Verified 08/13/22 11:22) GI UPSET acetaminophen [From Vicodin] Allergy (Unknown, Verified 08/13/22 11:22) Pruritis lorazepam [Ativan] Allergy (Unknown, Verified 08/13/22 11:22) Unknown hydrocodone [From VICODIN] Adverse Reaction (Mild, Verified 08/13/22 11:22) GI UPSET Medication List - Last Reconciled 09/13/22 by Jerald Vidal MD acetaminophen (Tylenol) 650 mg PO Q6H PRN amlodipine 2.5 mg PO DAILY 90 days betamethasone dipropionate 0.05% topical buspirone 7.5 mg PO DAILY cholecalciferol (vitamin D3) 25 mcg PO DAILY 90 days cyclobenzaprine 10 mg PO TID PRN 30 days hydrocortisone valerate 0.2% topical BID hydroxychloroquine 300 mg (1.5 x 200 mg) PO DAILY levothyroxine 88 mcg PO QAM 90 days omeprazole 20 mg PO DAILY valacyclovir 1,000 mg PO BID HPI 6 mth follow up GERD HPI Details ?GI CLINIC VISIT FOR THIS 62-YEAR-OLD FEMALE FOR FOLLOW-UP OF GERD AND GASTRIC EROSIONS. CHRONIC ILLNESSES:?GERD, HYPOTHYROIDISM, CALCIUM DEFICIENCY, ANXIETY, SMOKER, MEDICAL MARIJUANA & ? HTN. MIGRAINE HEADACHES ?LABS IN [facility]:?reviewed. ? 04/18/19 normal CBC, normal Chem panel, AST 25 AST 39, alkaline phosphatase is 60, lipase 47, ALEJANDRINA was negative ?IMAGING STUDIES: 03/26/19 Gastric Emptying study showed: ? Retention in the stomach at each time interval was: ? 1 hour 93% (normal 37%-90%) ? 2 hours 48% (normal 30%-60%) ? 3 hours 16% ? 4 hours 4% (normal 0%-10%) ? 09/14/[address] SCAN SHOWED: No evidence for acute abdominal or pelvic inflammatory or infectious processes. ? 08/13/18 UGI SHOWED: ? On placing patient supine and prone lying there is moderate ? flocculation of barium in the antrum suggestive of hyperacidity. There ? is punctate barium pooling in the antrum as well suggestive of gastric ? erosion. No evidence of duodenal ulceration. ? On placing patient supine and prone lying there is mild ? gastroesophageal reflux without hiatal hernia. The course, caliber and ? peristalsis of the stomach and the duodenum is normal. ?ENDOSCOPIC STUDIES: 09/08/2018 EGD SHOWED: ? ESOPHAGUS: Dysphagia likely due to esophageal motility disorder. Small hiatal ? hernia with a small tongue of possible Rollins's. ? STOMACH: Gastritis ? DUODENUM: Benign appearing duodenal polyp ? Plan: ? Await pathology results ? Continue present medications (Omeprazole at 20 mg PO once daily) ? Patient has an appointment on 09/19/18 in the GI Clinic with Jerald Vidal M.D ? Above findings were reviewed with the patient and relevant handouts ? were provided in the discharge area. ? ADDENDUM: BIOPSIES SHOWED: ? A. Small bowel, biopsies: Small bowel mucosa with no significant ? histopathology; no villous abnormality identified; no increase in intraepithelial lymphocytes. ? B. Duodenal bulb polyp, polypectomy: Chronic inactive duodenitis. Negative for dysplasia. ? C. Stomach, antrum, biopsy: Reactive gastropathy with background mild chronic ? inactive inflammation; no Helicobacter organisms seen. ? D. Stomach, body, biopsy: Mild chronic, inactive gastritis; no Helicobacter pylori organisms seen. ? E. Esophagus, distal, biopsy: Esophagogastric junctional mucosa with moderate chronic inflammation and scant squamous epithelium with reactive fea tures suggestive of reflux disease; negative for intestinal metaplasia; negative for dysplasia. ? 09/2013 colonoscopy was performed by Dr. Wilson and was negative. ? Repeat colonoscopy was advised in 10 years - due in 2023 ?TODAY'S VISIT Notes nausea 3 times a day and feels she is going to throw up. and passes in a few min She threw up a few times when she started taking the hydroxychloroquin Nausea is random and not associated with eating. Feels tired after eating in the morning and has to lay down. Notes bloating when she has a flare of fibromyalgia. Bloating resolves with resolution of the flare When she had the colonoscopy last time, she had difficulty with pooping (poop came out like raw egg white) for 6 months. Eventually straightened itself out. Paternal GM at age 39 yrs with colon cancer Dad is 94 yrs and had no polyps on colonoscopies in the past. Has an 8 month old grandson. PAST VISIT: Feels good for the most part. Still gets intermittent feeling that she is going to throw up and never has vomiting Has episodes when he has the nausea daily - 3-4 times a week instead of daily Comes out of nowhere, lasts for a few min and passes Wt is stable at 126 (baseline wt is 125) Continues to have intermittent random episodes of nausea without vomiting before, during or after eating. Episodes last 5 min and resolve spontaneously Happens more frequently after she started drinking tea with honey and half and half. Has been cooking at home. Started to get a apartment rental clerk on which foods trigger her symptoms - cheese and dairy Adds whey protein to her smoothies. Walks, rides her bike and plays golf. Nibbling on meat which tends to bother her a little bit. Wt stable at 125 lbs , walks 2 miles every day. Started taking a MVI ([employer]) too and has helped with her hair and nails x 2.5 months. Pt has problems with her entire spine and sees Darleen at the spine clinic. Treated with injections in the neck for neck pain and Occipital nerve for ABEL with improvement in symptoms. ?Was doing better for a while and notes recurrent symptoms for a week coinciding with a flare of fibromyalgia. Three episodes yesterday and none today. Walks 3 miles a day, golfs three times a week and bikes. The more she moves, the better she feels. Feels bloated and simethicone was not helpful Takes acetaminophen and a muscle relaxant for fibromyalgia Physical therapy and occupational therapy was not useful Being scheduled for an MRI of thoracic spine at [facility]. BMs are regular and has a normal BMs daily. Takes a lot of fruits and fibre and a serving of fruit. Weight is stable at 125 lbs (varies between 125 to 132 lbs) Cut out dairy and sugar from her diet. Does not take a lot of gluten. ? ? ? She is under increased stress due to Dad's failing health - he is 92 and lives in [place]. ? ? ? Stress and anxiety became worse a month ago. ?? ? Started taking Buspirone and scheduled appt with her therapist. ?? ? Took medical marijuana and GI symptoms became worse so she stopped taking it. ?? ? Has lost 20 lbs over the past month.? Not eating as well since her schedule has become very busy. ? ? Feels best when she keeps moving - ok with how she feels with Fibromyalgia. ? Seen by Rheumatology and has a follow up appt on 02/23/20. ? Gets sick to her stomach 4-5 times a day - feels she has to vomit and clears up in 5 min. ? Has happened in the middle of a meal and during walks in the morning. ? Does not vomit. ? ? ? Appetite is completely normal ? Has intermittent ABEL and dizziness and does not coincide with her GI symptoms. ? BMs are regular. ? ? ? Weight varies between 130 and 135 lbs. ? ? ? Tried Simethicone for abdominal bloating and was not helpful. ? Has not had bloating or gas for a month. ? Gets sudden and random nausea 2-3 times a day - resolves spontaneously in 2-3 min. ? Can happen while stomach is empty, full or sometimes in the middle of a meal. ? Does not drink milk. Has cut way back on the dairy. ? Experiencing gas and bloating - comes and goes with joint and muscle pains (when her body gets inflammed). ? As joint and muscles pains subside after 4-7 weeks, gas and bloating resolves ? Hair is shedding much heavier than normal. ? Can be overwhelmed with fatigue - diagnosed with CFS in 2009. ? Started walking x 3 months - walks 2 miles of brisk walk every single morning. ? Diet consists of a lot of fruits and vegetables. ? Takes 6 prunes every day and no issues with BMs. ? Being referred to Dr Lopez (Neurologist at [facility]) to rule out MS. ? Has an appt with Neurosurgeon tomorrow. ? Mom had Lupus and Fibr PFSH Medical History Acquired hypothyroidism Anxiety Arthralgia Benign essential hypertension Breast calcification, right Cervical spinal stenosis Cutaneous lupus erythematosus Depression Fibromyalgia GERD without esophagitis Insomnia Lumbar degenerative disc disease Mixed hyperlipidemia Myalgia Pure hypercholesterolemia Right shoulder pain Tinea corporis Vitamin D deficiency Surgical History History of colonoscopy (~10/01/13) History of total ankle replacement Hx of endoscopy Hx of total ankle replacement Family History Father Hypertension Mother Stroke Cancer Diabetes Rheumatoid arthritis SLE (systemic lupus erythematosus) Paternal Grandmother Colon cancer Other Mental health problem Substance abuse Social History Household Members: Children Household Members Other:: Son Housing: Apartment Alcohol intake: current Alcohol intake frequency: does not drink Patient Tobacco Use Status: Former Tobacco user Quit Date: 2018 Tobacco use type: Cigarette e-Cigarette/Vaping Use: Never Used Second Hand Smoke Exposure: Yes Substance Use Type: Marijuana service: No Current occupational status: retired and disabled Sexual orientation: Straight/Heterosexual Gender identity: Female Cognitive needs: No Hearing needs: No Vision needs: Yes Review of Systems Const Denies fever(s), Denies headache(s) and Denies weight loss Eyes Denies eye discharge and Denies irritation ENT Reports Normal hearing present, Denies dysphagia, Denies dizziness and Denies headache(s) Card Denies chest pain, Denies leg edema and Denies dyspnea on exertion Resp Denies cough, Denies dyspnea on exertion and Denies wheezing GI Denies abdominal pain, Denies change in bowel habits, Denies dysphagia and Denies heartburn Denies difficulty voiding and Denies dysuria Musc Denies back pain and Denies arthralgias Skin/Breast Denies pruritus, Denies rash and Denies jaundice Neuro Reports Normal hearing present, Denies Abnormal speech present, Denies dizziness, Denies headache(s) and Denies seizure-like activity Psych Denies anxiety, Denies depression and Denies panic attacks Endo Denies cold intolerance, Denies flushing and Denies heat intolerance Torres/Lymph Denies easy bleeding and Denies easy bruising Aller/Immun Denies wheezing Physical Exam Const General: healthy appearing and no acute distress Nutritional Appearance: average body habitus Orientation/consciousness: patient oriented x3 Limitations: no limitations HEENT Head: Yes normal to inspection Ears: hearing grossly normal bilaterally Eyes Sclerae: sclerae normal Pupils: Equal, round and reactive pupils present Neck Neck: Yes normal visual inspection Chest Chest palpation & inspection: normal inspection of the chest Resp Effort & Inspection: normal respiratory effort Auscultation: clear to auscultation bilaterally Cardio Palpation: normal PMI Rate: regular rate Rhythm: regular rhythm Heart sounds: S1 normal heart sound present, S2 normal heart sound present and no murmurs GI Palpation (GI): Soft to palpation, nontender and No hepatosplenomegaly present Auscultation: normal bowel sounds Rectal Exam - Female: deferred Skin General skin exam: no rashes or lesions noted Neuro General: patient oriented x3, gait normal and moves all extremities Cranial nerves: Yes Equal, round and reactive pupils present and Yes Normal hearing present Speech: No Abnormal speech present Psych Appearance: grossly normal Mental Status: mental status grossly normal Assessment & Plan Assessment & Plan (1) Transaminitis: Code(s): R74.01 - Elevation of levels of liver transaminase levels (2) GERD without esophagitis: Code(s): K21.9 - Gastro-esophageal reflux disease without esophagitis (3) Vitamin D deficiency: Code(s): E55.9 - Vitamin D deficiency, unspecified (4) Abdominal bloating: Code(s): R14.0 - Abdominal distension (gaseous) (5) Colon cancer screening: Comment: 09/2013 colonoscopy was performed by Dr. Wilson and was negative. Patient was advised repeat colonoscopy due to positive family history (Paternal GM at age 36 yrs). Patient preferred to have a stool fit test which was negative in 09/2019 and 09/2021. She is reluctant to undergo colonoscopy at present. When she had the colonoscopy last time, she had difficulty with pooping (poop came out like raw egg white) for 6 months. Eventually straightened itself out. Dad is 94 yrs and had no polyps on colonoscopies in the past. Code(s): Z12.11 - Encounter for screening for malignant neoplasm of colon (6) Early satiety: Code(s): R68.81 - Early satiety (7) Nausea: Code(s): R11.0 - Nausea Plan 62 YF with GERD, HYPOTHYROIDISM, CALCIUM DEFICIENCY, ANXIETY, SMOKER, MEDICAL MARIJUANA followed in GI for abdominal pain, nausea vomiting, bloating and change in bowel habits. UGI showed punctate barium pooling in the antrum suggestive of gastric erosion. No evidence of duodenal ulceration. Patient admitted to being under increased stress due to her dad's health and alcoholism in 2 brothers and attributes nausea due to increased stress. August 2018 EGD showed gastritis and a benign polyp was removed from the duodenum. Lab evaluation for celiac disease was negative, Vitamin B 12 was normal. Her symptoms of early satiety, nausea and vomiting were suggestive of idiopathic gastroparesis /? cannabis hyperemesis syndrome. Gastric emptying study and an abdominal CT scan were normal. Patient was advised to continue omeprazole for GERD, take Simethicone for gas and bloating. Her musculoskeletal symptoms are suggestive of fibromyalgia. Pt gives a history of wt loss which she attributes to stress and decreased PO intake due to her busy schedule and she was advise to keep healthy snacks and try to eat while driving (if she is not able to eat scheduled meals) She was advised to keep a log of episodes of nausea and vomiting and make a list of food which trigger it. 09/13/22 She is willing to have one more colonoscopy next year. GI follow-up appointment in 8 months. Coding Level of Care Code Est Pt Level 4 (24444) Diagnoses Transaminitis R74.01 GERD without esophagitis K21.9 Vitamin D deficiency E55.9 Abdominal bloating R14.0 Colon cancer screening Z12.11 Early satiety R68.81 Nausea R11.0 Time Spent (min) 24
[2022-09-13 10:09] VITALS: BP 121/71; PULSE 73; BMI 22.5
== END 2022-09-13 10:35 | disposition home or self-care (01) ==
PROVIDERS: PCP Internal Medicine; Visit Provider Internal Medicine Gastroenterology
DX: R11.0 Nausea (principal); K21.9 Gastro-esophageal reflux disease without esophagitis; R68.81 Early satiety; R74.01 Elevation of levels of liver transaminase levels
CPT/HCPCS: 99213

== ENCOUNTER → 2022-09-13 09:59 | Outpatient (BNVA) | payer OTHER, SELFPAY | PROVIDERS: PCP Internal Medicine; Visit Provider Internal Medicine Gastroenterology ==

== ENCOUNTER 2022-12-21 06:26 | Outpatient (REF) | payer OTHER, SELFPAY ==
[2022-12-21 11:25] LABS: Appearance Urine Clear; Color Urine Yellow; Glucose Urine UA Negative (Negative); Leukocyte Esterase Urine Negative (Negative); Nitrite Urine Negative (Negative); Urine Blood Negative (Negative); Urine Ketones Negative (Negative); Urine Protein Negative (Neg-Trace)
[2022-12-21 11:28] LABS: Bacteria Urine None Seen (None Seen); Hyaline Casts Urine 0-2 /LPF (0-2); RBC Urine 0-2 /HPF (0-2); Squamous Epithelial Cell Urine 0-2 /HPF (0-2); WBC Urine 0-5 /HPF (0-5)
[2022-12-21 11:36] LABS: MANUAL DIFF FLAG NO
[2022-12-21 11:40] LABS: Basophils Absolute Auto 0.1 X10*3/uL (0.0-0.2); Basophils Percent Auto 1.2 % (0-2); Eosinophils Absolute Auto 0.2 X10*3/uL (0.0-0.4); Eosinophils Percent Auto 3.3 % (0-4); Hematocrit 39.6 % (37.0-47.0); Hemoglobin 13.2 g/dl (12.0-16.0); Imm Gran Abs Auto 0.01 X10*3/uL (0.00-0.03); Imm Gran Pct Auto 0.2 % (0.0-0.4); Lymphocytes Absolute Auto 2.4 X10*3/uL (1.2-4.9); Mean Corpuscular HGB Conc 33.3 g/dl (31.0-35.0); Mean Corpuscular Hemoglobin 28.6 pg (27.0-33.0); Mean Corpuscular Volume 85.7 fL (80.0-98.0); Mean Platelet Volume 10.9 fL (9.4-12.3); Monocytes Absolute Auto 0.6 X10*3/uL (0.1-1.2); Monocytes Percent Auto 9.8 % (2-11); Neutrophils Absolute Auto 2.8 x10*3/uL (2.0-8.3); Neutrophils Percent Auto 46.5 % (45-73); Platelet Count 225 X10*3/uL (160-400); Red Blood Count 4.62 X10*6/uL (4.20-5.50)
[2022-12-21 12:23] LABS: Alanine Aminotransferase 29 U/L (0-31); Albumin Level 4.4 g/dL (3.5-5.0); Alkaline Phosphatase 55 U/L (39-117); Anion Gap 13 (12-20); Aspartate Amino Transferase 29 U/L (5-31); Bilirubin Total 0.4 mg/dL (0.0-1.0); Blood Urea Nitrogen 17 mg/dL (9-16); C Reactive Protein < 0.10 mg/dL (< or = 0.50); Calcium 10.1 mg/dL (8.4-10.2); Carbon Dioxide 25 mmol/L (22-29); Chloride 105 mmol/L (96-108); Cholesterol 190 mg/dL (<200); Estimated Glomerular Filt Rate > 60; Free T4 (Free Thyroxine) 0.88 ng/dL (0.71-1.85); Glucose Fasting 92 mg/dL (60-99); Glucose Random 92 mg/dL (60-115); HDL Cholesterol 60 mg/dL (>40); LDL Cholesterol Calculated 117 mg/dL (<100); Potassium 4.5 mmol/L (3.3-5.1); Sodium 138 mmol/L (135-145); Thyroid Stimulating Hormone 4.23 uIU/mL (0.32-4.0); Total Protein 7.3 g/dL (6.5-8.0); Triglycerides 69 mg/dL (<150); Vitamin D 25-OH Total 46.5 ng/mL (>30)
[2022-12-21 12:24] LABS: Erythrocyte Sedimentation Rate 5 MM/HR (0-20)
[2022-12-21 12:30] LABS: Folate 9.5 ng/mL (> or = 4.0); Vitamin B12 844 pg/mL (200-900)
[2022-12-21 12:51] LABS: Total Protein Urine Random < 7 mg/dL (<12)
[2022-12-24 13:13] LABS: Anti DNA DS Antibody <1 IU/mL
[2022-12-25 00:28] LABS: Complement C3 89 mg/dL (83-193)
== END 2022-12-21 06:27 | disposition home or self-care (01) ==
LOC: HO.HMGCLDS 06:26
PROVIDERS: Absent Provider Student in an Organized Health Care Education/Training Program; PCP Internal Medicine; Visit Provider Internal Medicine
DX: M32.9 Systemic lupus erythematosus, unspecified (principal); E78.00 Pure hypercholesterolemia, unspecified; E03.9 Hypothyroidism, unspecified; R30.0 Dysuria; E55.9 Vitamin D deficiency, unspecified; E53.8 Deficiency of other specified B group vitamins; I10 Essential (primary) hypertension
CPT/HCPCS: 36415; 80053; 80061; 81001; 81003; 82306; 82570; 82607; 82746; 84156; 84439; 84443; 85025; 85652; 86140; 86160; 86225

== ENCOUNTER 2022-12-28 09:32 | Outpatient (AMB) | payer OTHER, SELFPAY ==
[2022-12-28 09:38] VITALS: BP 112/60; PULSE 77; TEMP 36.3; O2SAT 97; BMI 22.8
--- NOTE | 2022-12-28 09:38 | MHC.OFFVIS ---
Intake Vital Signs 12/28/22 09:38 Height 5 ft 3 in Weight 128 lb 11.999 oz BMI 22.8 BP 112/60 Blood Pressure Location Rt brachial Position Sitting Pulse 77 Pulse Source Pulse Oximeter Temp 97.4 F Temp Source Skin Pulse Oximetry (%) 97 Intake Visit Reasons: SLE Intake Note: Pt presents today for follow up and test results. Continues on plaquenil , last eye exam in May Dr Lin. Reports about 3 weeks ago she experienced brain fog, that has since subsided. She states it comes and goes. General Internal Medicine Doctor Required: No Accompanied by: Self / Same As Patient Allergies gabapentin [GABAPENTIN] Allergy (Intermediate, Verified 12/28/22 09:42) GI UPSET acetaminophen [From Vicodin] Allergy (Unknown, Verified 12/28/22 09:42) Pruritis lorazepam [Ativan] Allergy (Unknown, Verified 12/28/22 09:42) Unknown hydrocodone [From VICODIN] Adverse Reaction (Mild, Verified 12/28/22 09:42) GI UPSET Medication List - Last Reconciled 12/28/22 by Morgan Lora MD acetaminophen (Tylenol) 650 mg PO Q6H PRN amlodipine 2.5 mg PO DAILY 90 days betamethasone dipropionate 0.05% topical buspirone 7.5 mg PO BID cholecalciferol (vitamin D3) 25 mcg PO DAILY 90 days cyclobenzaprine 10 mg PO TID PRN 30 days hydrocortisone valerate 0.2% topical BID hydroxychloroquine 300 mg (1.5 x 200 mg) PO DAILY levothyroxine 88 mcg PO QAM 90 days omeprazole 20 mg PO DAILY valacyclovir 1,000 mg PO BID HPI HPI Comments History of Present Illness Details 62-year-old female with SLE returns for follow-up. She takes hydroxychloroquine 200 mg daily. She forgets to take the extra half pill. Over the last 6 months she has been doing fairly well. Except 3 weeks ago she had a few episodes of brain fog and fatigue. A few episodes of headaches and extreme sun light sensitivity. States that all the rashes on her face have resolved except for the 1 on her right church. Initial history: 61-year-old female with a past medical history of thyroid disease, chronic fatigue syndrome, fibromyalgia presents for evaluation of a positive ALEJANDRINA . She was evaluated last year by Dr. Stanley with comprehensive serology and he was negative for autoimmune rheumatic disease. Three months ago she developed rashes on her face and neck that were itchy, she was evaluated by hospital nursing assistant Dr. Cortez who told her she has lupus. She was prescribed topical steroid creams with improvement of her skin rash. She continues to have skin rashes on her face and neck. Her repeat ALEJANDRINA testing is positive which prompted this visit. She recently went to urgent care for a swollen neck lymph node, she was prescribed prednisone 20 mg for 5 days with almost complete resolution of her symptoms. While on the prednisone she had about 30% relief of her joint pain. Otherwise she continues to have same symptoms of fatigue, and generalized aches of her muscles and joints. She smokes marijuana at night which helps her fall asleep but she has difficulty staying asleep. For her fibromyalgia she failed Cymbalta and 5 or 6 different antidepressants as she could not tolerate them. She also failed PT/OT, she tries to eat an anti inflammatory diet. Currently she is taking care of her 93-year-old father. Patient denies Raynaud's, oral or nasal ulcers, DVT or PE. [facility] Medical History Mixed hyperlipidemia Breast calcification, right Cutaneous lupus erythematosus Insomnia Cervical spinal stenosis Fibromyalgia GERD without esophagitis Vitamin D deficiency Tinea corporis Acquired hypothyroidism Depression Anxiety Lumbar degenerative disc disease Right shoulder pain Myalgia Arthralgia Benign essential hypertension Pure hypercholesterolemia Surgical History Hx of total ankle replacement Hx of endoscopy History of colonoscopy (~10/01/13) History of total ankle replacement Family History Father Hypertension Mother Stroke Cancer Diabetes Rheumatoid arthritis SLE (systemic lupus erythematosus) Paternal Grandmother Colon cancer Other Mental health problem Substance abuse Social History Household Members: Children Household Members Other:: Son Housing: Apartment Alcohol intake: current Alcohol intake frequency: does not drink Patient Tobacco Use Status: Former Tobacco user Quit Date: 2018 Tobacco use type: Cigarette e-Cigarette/Vaping Use: Never Used Second Hand Smoke Exposure: Yes Substance Use Type: Marijuana service: No Current occupational status: retired and disabled Sexual orientation: Straight/Heterosexual Gender identity: Female Cognitive needs: No Hearing needs: No Vision needs: Yes Review of Systems Const Reports headache(s) ENT Reports headache(s) Skin/Breast Reports photosensitivity Neuro Details: Brain fog Reports headache(s) Psych Reports anxiety Physical Exam Vital Signs: Last Vital Signs Temp 97.4 F 12/28/22 09:38 Pulse 77 12/28/22 09:38 BP 112/60 12/28/22 09:38 Pulse Ox 97 12/28/22 09:38 BMI result Body Mass Index 22.8 Const General: cooperative and healthy appearing Nutritional Appearance: average body habitus Orientation/consciousness: patient oriented x3 Limitations: no limitations HEENT Head: Yes normocephalic and Yes atraumatic Resp Effort & Inspection: normal respiratory effort and able to speak in complete sentences Auscultation: clear to auscultation bilaterally Cardio Rate: regular rate Rhythm: regular rhythm Heart sounds: S1 normal heart sound present and S2 normal heart sound present GI Inspection: No distended Palpation (GI): Soft to palpation and nontender Skin Other: No rashes on face except for recurring papular rash on the right church Neuro General: patient oriented x3 Extrem Other: No synovitis Normal nailfold capillaroscopy Some osteoarthritic changes of her hands Assessment & Plan Assessment & Plan (1) SLE (systemic lupus erythematosus): Comment: dx 04/19 (+ ALEJANDRINA, cutaneous SLE, fatigue, low C3 & C4 when in a flare) HCQ started 04/19 effective Code(s): M32.9 - Systemic lupus erythematosus, unspecified Qualifiers: Systemic lupus erythematosus type: unspecified Systemic lupus erythematosus organ involvement: other Qualified Code(s): M32.19 - Other organ or system involvement in systemic lupus erythematosus Plan: This is a 62-year-old female with mild SLE (cutaneous lupus, fatigue, ALEJANDRINA 1-160 speckled,?low C3 & C4 when in a flare)?who presents for follow-up. Doing fairly well overall. Gets rare flares of brain fog, headaches and light sensitivity. Patient is only taking 200 mg of hydroxychloroquine rather than the recommended 300 mg daily. Advised patient to alternate 200 mg daily with 400 mg daily Advised patient to call the office if she feels like she is having a flare and we will try to get her in to be evaluated. Follow-up in 6 months. Labs before next visit (2) Encounter for monitoring of hydroxychloroquine therapy: Code(s): Z51.81 - Encounter for therapeutic drug level monitoring; Z79.899 - Other bed bug exterminator (current) drug therapy Plan: Patient was evaluated by Dr. Lin 05/2022 and cleared to continue hydroxychloroquine (3) Acquired hypothyroidism: Code(s): E03.9 - Hypothyroidism, unspecified Plan: TSH mildly elevated today. Patient has a follow-up appointment with Dr. Riddle today (4) Immunization counseling: Code(s): Z71.85 - Encounter for immunization safety counseling Plan: Patient received Shingrix vaccine, pneumonia vaccine and planning to get flu vaccine and new COVID booster Plan I spent 23 minutes reviewing patient's chart, evaluating patient, ordering diagnostic workup, counseling patient and documenting in the chart Orders: Orders Complete Blood Count Auto Diff 6 Months M32.9 - Systemic lupus erythematosus, unspecified Erythrocyte Sedimentation Rate 6 Months M32.9 - Systemic lupus erythematosus, unspecified Comprehensive Met. Panel 6 Months M32.9 - Systemic lupus erythematosus, unspecified Anti DNA DS Antibody 6 Months M32.9 - Systemic lupus erythematosus, unspecified Complement C3 6 Months M32.9 - Systemic lupus erythematosus, unspecified Complement C4 6 Months M32.9 - Systemic lupus erythematosus, unspecified UA w Microscopic 6 Months M32.9 - Systemic lupus erythematosus, unspecified C Reactive Protein 6 Months M32.9 - Systemic lupus erythematosus, unspecified Protein Creatinine Ratio, Ur 6 Months M32.9 - Systemic lupus erythematosus, unspecified Medications: Changed From hydroxychloroquine 300 mg (1.5 x 200 mg) PO DAILY 135 tabs 1RF To hydroxychloroquine Take 1 tablet daily alternating with 2 tabs daily 135 tabs 1RF Coding Level of Care Code Est Pt Level 4 (05619) Diagnoses Systemic lupus erythematosus with other organ involvement, unspecified SLE type M32.19 Systemic lupus erythematosus type: unspecified Systemic lupus erythematosus organ involvement: other Encounter for monitoring of hydroxychloroquine therapy Z51.81; Z79.899 Acquired hypothyroidism E03.9 Immunization counseling Z71.85
== END 2022-12-28 10:09 | disposition home or self-care (01) ==
PROVIDERS: PCP Internal Medicine; Visit Provider Student in an Organized Health Care Education/Training Program
DX: M32.19 Other organ or system involvement in systemic lupus erythematosus (principal); Z51.81 Encounter for therapeutic drug level monitoring; Z79.899 Other long term (current) drug therapy; E03.9 Hypothyroidism, unspecified; Z71.85 Encounter for immunization safety counseling
CPT/HCPCS: 99214

== ENCOUNTER → 2022-12-28 09:32 | Outpatient (BNVA) | payer OTHER, SELFPAY | PROVIDERS: PCP Internal Medicine; Visit Provider Student in an Organized Health Care Education/Training Program | DX: M32.19 Other organ or system involvement in systemic lupus erythematosus (principal); E03.9 Hypothyroidism, unspecified; Z51.81 Encounter for therapeutic drug level monitoring; Z71.85 Encounter for immunization safety counseling; Z79.899 Other long term (current) drug therapy | CPT/HCPCS: 99212 ==

== ENCOUNTER 2022-12-28 12:19 | Outpatient (AMB) | payer OTHER, SELFPAY ==
[2022-12-28 12:39] VITALS: BP 102/68; PULSE 86; O2SAT 98; BMI 22.8
--- NOTE | 2022-12-28 12:39 | A.OFFPC_ITS ---
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 Accompanied by: Self / Same As Patient Allergies gabapentin [GABAPENTIN] Allergy (Intermediate, Verified 12/28/22 12:47) GI UPSET acetaminophen [From Vicodin] Allergy (Unknown, Verified 12/28/22 12:47) Pruritis lorazepam [Ativan] Allergy (Unknown, Verified 12/28/22 12:47) Unknown hydrocodone [From VICODIN] Adverse Reaction (Mild, Verified 12/28/22 12:47) GI UPSET Medication List - Last Reconciled 12/28/22 by Raleigh Riddle MD acetaminophen (Tylenol) 650 mg PO Q6H PRN amlodipine 2.5 mg PO DAILY 90 days betamethasone dipropionate 0.05% topical buspirone 7.5 mg PO BID cholecalciferol (vitamin D3) 25 mcg PO DAILY 90 days cyclobenzaprine 10 mg PO TID PRN 30 days hydrocortisone valerate 0.2% topical BID hydroxychloroquine Take 1 tablet daily alternating with 2 tabs daily levothyroxine 88 mcg PO QAM 90 days omeprazole 20 mg PO DAILY valacyclovir 1,000 mg PO BID Tobacco use date assessed: 12/28/22 Dental Screening Dental Screen Date: 12/28/22 Did you have a dental visit in the last 12 months?: No Did you have a dental problem in the last 6 months where you did not have access to dental care?: No Was dental information given to patient?: No HPI PE HPI Details Patient comes in today for her annual physical examination States that she feels okay She denies any dizziness but has been experiencing on and off headaches lately States that she has also noticed some light sensitivity associated with her headaches as well as on and off nausea and occasional vomiting States that Tylenol helps relieve her headaches and she takes them when needed Denies any chest pains, no SOB No abdominal pain and no change in bowel habits noted She denies any acute urinary symptoms Had her follow up labs done last week - to discuss her results She will be due for her repeat colonoscopy next year ~ 09/2023 Had her annual mammogram done back in June 2022 Pap smear was last done in 04/2020 - negative; she is scheduled for her next physician gynecologist exam and pap smear in July 2023 She would also like to get her flu shot today PFSH Medical History Mixed hyperlipidemia Breast calcification, right Cutaneous lupus erythematosus Insomnia Cervical spinal stenosis Fibromyalgia GERD without esophagitis Vitamin D deficiency Tinea corporis Acquired hypothyroidism Depression Anxiety Lumbar degenerative disc disease Right shoulder pain Myalgia Arthralgia Benign essential hypertension Pure hypercholesterolemia Surgical History Hx of total ankle replacement Hx of endoscopy History of colonoscopy (~10/01/13) History of total ankle replacement Family History Father Hypertension Mother Stroke Cancer Diabetes Rheumatoid arthritis SLE (systemic lupus erythematosus) Paternal Grandmother Colon cancer Other Mental health problem Substance abuse Social History Household Members: Children Household Members Other:: Son Housing: Apartment Alcohol intake: current Alcohol intake frequency: does not drink Patient Tobacco Use Status: Former Tobacco user Quit Date: 2018 Tobacco use type: Cigarette e-Cigarette/Vaping Use: Never Used Second Hand Smoke Exposure: Yes Substance Use Type: Marijuana service: No Current occupational status: retired and disabled Sexual orientation: Straight/Heterosexual Gender identity: Female Cognitive needs: No Hearing needs: No Vision needs: Yes Questionnaire PHQ-9 Over the last 2 weeks, how often have you been bothered by any of the following problems? 1. Little interest or pleasure in doing things: not at all 2. Feeling down, depressed, or hopeless: not at all 3. Trouble falling or staying asleep, or sleeping too much: not at all 4. Feeling tired or having little energy: not at all 5. Poor appetite or overeating: not at all 6. Feeling bad about yourself - or that you are a failure or have let yourself or your family down: not at all 7. Trouble concentrating on things, such as reading the newspaper or watching television: not at all 8. Moving or speaking so slowly that other people could have noticed. Or the opposite - being so fidgety or restless that you have been moving around a lot more than usual: not at all 9. Thoughts that you would be better off or of hurting yourself in some way: not at all Total score: 0 Depression Screening Interpretation: Negative Depression Screening Done: Yes 80760 - PHQ-9 Billing: Yes Source: Developed by Drs. Michael Yao, Francine Godinez, Sriram Knott and colleagues, with an educational pramod from [employer]. Thrive Questionnaire Date Thrive assessed: 12/28/22 I am a: Patient What is your living situation today?: I have a steady place to live Within the past 12 months, did the food you bought not last and you didn't have the money to get more?: Never true Within the past 12 months, did you worry whether your food would run out before you got money to buy more?: Never true Do you have trouble paying for medicines?: No Do you have trouble getting transportation to medical appointments?: No Do you have trouble paying your heating and electricity bill?: No Do you have trouble taking care of your child, family member or friend?: No Do you have trouble with day-to-day activities such as bathing, preparing meals, shopping, managing finances, etc.?: No Are you currently unemployed and looking for a job?: No Are you interested in more education?: No Please select the resources that you would like help with: None Currently or been in a relationship where the following occur: no concerns reported AUDIT C Alcohol Use Questionnaire (AUDIT-C) 1. How often do you have a drink containing alcohol?: Never 3. How often do you have six or more drinks on one occasion?: Never Total Score: 0 Score Reviewed/Action Taken: Yes MARGARITO-7 AMB Questionnaire MARGARITO-7 Date MARGARITO - 7 assessed: 12/28/22 Feeling nervous, anxious, or on edge: 0 = Not at all Not being able to stop or control worryin = Not at all Worrying too much about different things: 0 = Not at all Trouble relaxin = Not at all Being so restless that it is hard to sit still: 0 = Not at all Becoming easily annoyed or irritable: 0 = Not at all Feeling afraid as if something awful might happen: 0 = Not at all Total MARGARITO-7 score (0-4 normal; 5-9 mild; 10-14 moderate; 15-21 severe): 0 Source: Developed by Drs. Michael Yao, Francine Godinez, Sriram Knott and colleagues, with an educational pramod from [employer]. Review of Systems Const Denies chills, Denies fatigue, Denies fever(s), Reports headache(s) (on and off, with photosensitivity) and Denies malaise Eyes Denies blurry vision, Denies change in vision, Denies irritation, Denies itchy eyes and Reports photophobia (during (+) headaches) ENT Denies dysphagia, Denies dizziness, Denies otalgia, Reports headache(s) (on and off, with photosensitivity), Reports nasal congestion (often when headaches occur), Denies neck pain, Denies odynophagia, Denies sinus pain and Denies sore throat Card Denies chest pain, Denies rapid heart rate, Denies irregular heart rhythm, Denies palpitations and Reports dyspnea on exertion (mild, chronic) Resp Denies chest congestion, Denies cough, Reports dyspnea on exertion (mild, chronic) and Denies wheezing GI Denies abdominal pain, Denies bloating, Denies constipation, Denies dysphagia, Denies heartburn, Denies diarrhea, Reports nausea (recurrent), Denies odynophagia and Reports vomiting (occasional) Denies hematuria, Denies urinary frequency, Denies dysuria, Denies urinary incontinence and Denies urinary urgency Musc Reports back pain (over the mid to lower back), Reports myalgias, Reports arthralgias (on and off, increased lately - see HPI), Denies neck pain and Reports stiffness Skin/Breast Details: (+) multiple pimple-like lesions on her forehead and face Denies breast pain, Denies breast mass, Denies change in pigmentation and Denies unusual bruising Neuro Denies dizziness, Reports headache(s) (on and off, with photosensitivity) and Denies paresthesias Psych Denies anxiety and Denies depression Endo Denies fatigue and Denies palpitations Torres/Lymph Denies easy bruising Aller/Immun Denies itchy eyes and Denies wheezing Physical exam (Primary Care) Vital Signs: Last Vital Signs Pulse 86 12/28/22 12:39 BP 102/68 12/28/22 12:39 Pulse Ox 98 12/28/22 12:39 Oxygen Delivery Method Room Air 12/28/22 12:39 BMI result Body Mass Index 22.8 Tobacco/Smoking Status: Tobacco use Status Tobacco use date assessed 12/28/22 12/28/22 12:45 Patient Tobacco Use Status Former Tobacco user 12/28/22 12:45 Tobacco use type Cigarette 12/28/22 12:45 e-Cigarette/Vaping Use Never Used 12/28/22 12:45 PHQ-9: PHQ-9 Score PHQ-9: Total score 0 12/28/22 12:51 Depression Screening Interpretation: Negative Thrive Assessment: Date of Thrive Assessment Date Thrive assessed 12/28/22 12/28/22 12:45 Currently or been in a relationship where the following occur: no concerns reported Const General: no acute distress, alert and awake Orientation/consciousness: patient oriented x3 HENMT Head: Yes normocephalic and Yes atraumatic Ears: external ears normal, TM's normal bilaterally and EAC's normal General nose exam: No nasal discharge present Face and sinus: Yes normal facial exam and Yes sinuses nontender Teeth and gingiva: dentition normal Throat: Yes posterior oropharynx normal and Yes tonsils normal (no TP congestion) Eyes Eyelids: Yes eyelids normal Conjunctivae: conjunctivae normal Pupils: Equal, round and reactive pupils present EOM: EOMs intact bilaterally Direct Ophthalmoscopy: photophobia (during (+) headaches) Neck Neck: Yes no lymphadenopathy and Yes supple Thyroid: Thyroid normal Resp Auscultation: clear to auscultation bilaterally, no rales and no wheezes Cardio Rate: regular rate Rhythm: regular rhythm Heart sounds: no murmurs GI Palpation (GI): Soft to palpation, nontender and No hepatosplenomegaly present Auscultation: normal bowel sounds General: Yes no CVA tenderness Back/Spine/Pelvis Back: no CVA tenderness Cervical Spine: cervical muscular tenderness (mild) and Cervical spine tenderness Thoracic/Lumbar Spine: paraspinal muscle tenderness bilaterally in the upper thoracic, in the upper lumbar, in the mid lumbar and in the lower lumbar and lumbar spinal tenderness Skin Other: (+) few scattered erythematous papular lesions on the forehead and on the face Neuro General: patient oriented x3, moves all extremities, no focal motor deficits and CN's II-XI intact bilaterally Cranial nerves: Yes Equal, round and reactive pupils present Cognition (Neuro): normal cognition Gait exam (Neuro): Normal gait present Extrem General: Yes no clubbing, cyanosis or edema Office Procedures Flu Questionnaire Does the patient have a severe egg allergy?: No Does the patient have severe life threatening allergies?: No Does the patient have a fever or illness today?: No Has the patient ever had Guillain-Napavine Syndrome?: No Has the patient ever had any past reaction to a flu shot?: No Immunizations flu vacc [id number] 6mos up(PF) 60 mcg(15 mcgx4)/0.5 mL IM syringe Performing Provider: Raleigh Riddle MD [facility] Administered by: Mar Alexis on 12/28/22 12:51 Dose Route Admin Location Dispensed Lot Number Expiration Date NDC Hide Puller 0.5 mL IM Right Deltoid 0.5 mL [id number] 08/25/23 [id number] [employer] VIS Given Date VIS Provided VIS Publication Date 12/28/22 Single Vaccine 20 Eligibility Eligibility Date Funding Source Not VF Eligible 12/28/22 Private Results Reviewed Results Reviewed: Laboratory Tests 12/21/22 12/21/22 12/21/22 06:45 06:45 07:54 WBC 6.0 Hgb 13.2 Hct 39.6 Plt Count 225 ESR 5 Sodium 138 Potassium 4.5 Creatinine 0.80 Estimated GFR > 60 Fasting Glucose 92 Calcium 10.1 AST 29 ALT 29 C-Reactive Protein < 0.10 Triglycerides 69 Cholesterol 190 LDL Cholesterol, Calc 117 H HDL Cholesterol 60 Vitamin B12 844 25-OH Vitamin D Total 46.5 Folate 9.5 TSH 4.23 H Free T4 0.88 Urine pH 7.0 Ur Specific [place] 1.010 Urine Protein Negative Urine Glucose (UA) Negative Urine Blood Negative Double Strand DNA Ab <1 Complement C3 89 Complement C4 15 Assessment and Plan Assessment & Plan (1) Annual physical exam: Code(s): Z00.00 - Encounter for general adult medical examination without abnormal findings Plan: Results of her labs done last week reviewed and discussed with patient She will be due for repeat colonoscopy next year - is now following up with Dr. Vidal She is scheduled for her next physician gynecologist exam and pap smear in July 2023 Mammogram was last done in June 2022 - will be due for repeat next June 2023 She has never had a bone density screening done and this will be ordered for her (2) Cutaneous lupus erythematosus: Code(s): L93.2 - Other local lupus erythematosus Plan: Continue Hydroxychloroquine 200 mg 1 tablet alternating with 2 tablets QD Follow up with rheumatology as scheduled Emphasized again avoidance of sun exposure (3) Fibromyalgia: Code(s): M79.7 - Fibromyalgia Plan: Patient is again encouraged to continue to stay active and exercise regularly Has been referred to physical therapy in the past when needed with (+) slight improvement of her symptoms Patient also continues to follow up with [facility] as scheduled for pain management and trigger point injections Follows up also with [facility] (Dr. Rodriguez) as scheduled - MS has been previously ruled out Continue Cyclobenzaprine 5 mg TID PRN - dosage was previously lowered per patient request (4) Arthralgia: Code(s): M25.50 - Pain in unspecified joint Qualifiers: Joint pain location: unspecified Qualified Code(s): M25.50 - Pain in unspecified joint Plan: Follow up with rheumatology as scheduled - has been diagnosed with polyarthralgia in addition to her fibromyalgia (5) Exertional dyspnea: Code(s): R06.09 - Other forms of dyspnea Plan: Most likely multifactorial, including physical deconditioning PFTs and myocardial perfusion study done a couple of years ago (in mid-2019) both came out normal (6) Mixed hyperlipidemia: Code(s): E78.2 - Mixed hyperlipidemia Plan: Have cautioned patient that her lipids have increased slightly from previous on her recent labs Reinforced low cholesterol diet Will recheck her labs and fasting lipids in 4 months for follow up (7) Benign essential hypertension: Code(s): I10 - Essential (primary) hypertension Plan: Reinforced low sodium diet - goal is systolic BP of 120 mm or less Continue Amlodipine 2.5 mg QD (8) Acquired hypothyroidism: Code(s): E03.9 - Hypothyroidism, unspecified Plan: TSH was elevated on her recent labs; free T4 is borderline low Will increase her Levothyroxine from 88 mcg to 100 mcg QD Will recheck her TFTs in 4 months for follow up (9) Cervical spinal stenosis: Comment: (+) cervical radiculopathy, worse on the left side Code(s): M48.02 - Spinal stenosis, cervical region Plan: Cervical spine imaging done a couple of years ago revealed (+) neuroforaminal stenosis, most pronounced at C6-C7 and greater on the left than the right side Follow-up with [facility] as scheduled for pain management (10) Headache: Code(s): R51.9 - Headache, unspecified Qualifiers: Headache type: unspecified Headache chronicity pattern: episodic headache Intractability: not intractable Qualified Code(s): R51.9 - Headache, unspecified Plan: States that her recent headaches are adequately relieved when she takes OTC Tylenol Have advised that based on her symptoms, her headaches appear consistent with migraine headaches Patient states that she will call if her headaches persist or get worse - may need to consider prophylactic Tx then Discussed avoidance of any potential migraine triggers (11) Lumbar degenerative disc disease: Code(s): M51.36 - Other intervertebral disc degeneration, lumbar region Plan: Reinforced activity and weight lifting restrictions Lumbar spine MRI done at [facility] on 08/22/2019 showed a right-sided foraminal disc osteophyte protrusion at the L4-L5 level that contacts the right L4 nerve root as well as multilevel degenerative changes Was referred to and seen by Neurosurgery and advised that there is no surgical indication; she was then referred to [facility] who recommended PT and OT only as needed Follow up with [facility] as scheduled (12) Vitamin D deficiency: Code(s): E55.9 - Vitamin D deficiency, unspecified Plan: Corrected - continue Vitamin D3 1000 units QD (13) GERD without esophagitis: Code(s): K21.9 - Gastro-esophageal reflux disease without esophagitis Plan: Dietary restrictions reinforced Continue Omeprazole 20 mg QD (14) Fatigue: Code(s): R53.83 - Other fatigue Qualifiers: Fatigue type: unspecified Qualified Code(s): R53.83 - Other fatigue Plan: Likely also multifactorial Recent labs/serologies ordered by Dr. Lora, including C3 and C4 levels as well as liver and kidney microsomal antibodies and antimitochondrial Ab, all of which came back normal Can consider referral to Sleep Medicine if her increased fatigue persists, although patient feels that she sleeps well at night Is advised that sleeping well at night and Sleep Apnea are 2 very different situations and one does not necessarily have anything to do with the other (15) Insomnia: Code(s): G47.00 - Insomnia, unspecified Qualifiers: Insomnia type: unspecified Qualified Code(s): G47.00 - Insomnia, unspecified Plan: Sleep hygiene reinforced Used to take Zolpidem in the past but has been only taking OTC Melatonin 6 mg Q HS PRN for the past year or two with good results (16) Anxiety: Code(s): F41.9 - Anxiety disorder, unspecified Plan: Continue Lorazepam 0.5 mg QD PRN and Buspirone 7.5 mg QD (17) Depression: Code(s): F32.9 - Major depressive disorder, single episode, unspecified Qualifiers: Depression Type: major depressive disorder Major depression recurrence: recurrent Active/Remission status: currently active Major depression episode severity: unspecified Qualified Code(s): F33.9 - Major depressive disorder, recurrent, unspecified Plan: Patient could not tolerate multiple antidepressants in the past Has been doing a lot better since her TMS at [facility] that she completed a couple of years ago (2019) Follow-up with Psychiatry as scheduled (18) Osteoporosis screening: Code(s): Z13.820 - Encounter for screening for osteoporosis Plan: Will send patient for bone density scan for osteoporosis screening - this will be her index scan (19) Screening for lung cancer: Code(s): Z12.2 - Encounter for screening for malignant neoplasm of respiratory organs Plan: Per request, will refer to thoracic surgery for lung cancer screening - patient reports (+) approximately 40 pack years of smoking history although she quit smoking completely a few years ago Plan Per request, flu vaccine given today Follow up in 4 months Orders: Orders Influenza [id number] Immunization Today Z23 - Encounter for immunization XR DEXA axial skeleton Today Z78.0 - Asymptomatic menopausal state Lipid Panel 4 Months E78.00 - Pure hypercholesterolemia, unspecified Thyroid Stimulating Hormone 4 Months E03.9 - Hypothyroidism, unspecified Free T4 (Free Thyroxine) 4 Months E03.9 - Hypothyroidism, unspecified Vitamin D 25-OH Total 4 Months E55.9 - Vitamin D deficiency, unspecified UA CC w/rflx Micro + Cult 4 Months R30.0 - Dysuria Complete Blood Count Auto Diff 4 Months I10 - Essential (primary) hypertension Comprehensive [place]. Panel Fast 4 Months E78.00 - Pure hypercholesterolemia, unspecified Referrals Thoracic Surgery Referral Z12.2 - Encounter for screening for malignant neoplasm of respiratory organs Medications: Changed From levothyroxine 88 mcg PO QAM 90 days 90 tabs 1RF To levothyroxine 100 mcg PO QAM 90 days 90 tabs 1RF Coding Level of Care Code Est Pt Prev Care 40-64y(89972) Diagnoses Annual physical exam Z00.00 Cutaneous lupus erythematosus L93.2 Fibromyalgia M79.7 Arthralgia, unspecified joint M25.50 Joint pain location: unspecified Exertional dyspnea R06.09 Mixed hyperlipidemia E78.2 Benign essential hypertension I10 Acquired hypothyroidism E03.9 Cervical spinal stenosis M48.02 Nonintractable episodic headache, unspecified headache type R51.9 Headache type: unspecified Headache chronicity pattern: episodic headache Intractability: not intractable Lumbar degenerative disc disease M51.36 Vitamin D deficiency E55.9 GERD without esophagitis K21.9 Fatigue, unspecified type R53.83 Fatigue type: unspecified Insomnia, unspecified type G47.00 Insomnia type: unspecified Anxiety F41.9 Episode of recurrent major depressive disorder, unspecified depression episode severity F33.9 Depression Type: major depressive disorder Major depression recurrence: recurrent Active/Remission status: currently active Major depression episode severity: unspecified Osteoporosis screening Z13.820 Screening for lung cancer Z12.2
== END 2022-12-28 13:13 | disposition home or self-care (01) ==
PROVIDERS: PCP Internal Medicine; Visit Provider Internal Medicine
DX: Z23 Encounter for immunization (principal)
CPT/HCPCS: 90471; 90686; 99396

== ENCOUNTER 2023-01-31 08:56 | Outpatient (REF) | payer OTHER, SELFPAY ==
--- NOTE | ~2023-01-31 | MM_ITS ---
EXAMINATION: BONE DENSITOMETRY CLINICAL INDICATION: Menopause. COMPARISON: This is the patient's baseline examination. TECHNIQUE: Using a [employer] DXA System (software version: 13.1) manufactured by [employer], dual-energy x-ray absorptiometry was performed of the lumbar spine and left hip. The images are of good technical quality. Summary results are attached. FINDINGS: LEFT FEMUR, NECK: BMD 0.874 g/cm2, Z-score 0.3, T-score -1.2, osteopenia. LEFT FEMUR, TOTAL: BMD 0.990 g/cm2, Z-score 1.1, T-score -0.1, normal. AP SPINE L1-L4: BMD 1.012 g/cm2, Z-score 0.3, T-score -1.4, osteopenia. IDENTIFIED RISK FACTORS: Menopause, height loss. HISTORY OF FRACTURE: None listed. MEDICATIONS: Vitamin D. MM/XR DEXA axial skeleton IMPRESSION: 1. DIAGNOSIS: Osteopenia based on the lowest T-score value of -1.4 in the lumbar spine applying World Health Organization criteria. 2. 10-YEAR FRACTURE RISK PREDICTION, FRAX: Major osteoporotic fracture (clinical spine, forearm, hip or shoulder) 7.5%. Hip fracture 0.6%. 3. Treatment Recommendations: NOF guidelines recommend consideration for treatment in postmenopausal women and men age 50 and older presenting with the following: -A hip or vertebral (clinical or morphometric) fracture. -T-score less than or equal to -2.5 at the femoral neck or spine after appropriate evaluation to exclude secondary causes. -Low bone mass at the hip or spine and a 10-year fracture probability by FRAX of greater than or equal to 3% for hip fracture or greater than or equal to 20% for major osteoporotic fracture based on the [place] adapted WHO algorithm. 4. Other Recommendations: All treatment decisions require clinical judgment and consideration of individual patient factors, including patient preferences, comorbidities, previous drug use, risk factors not captured in the FRAX model (e.g. frailty, falls, vitamin D deficiency, increased bone turnover, interval significant decline in bone density) and possible under or overestimation of fracture risk by FRAX. Additional medical evaluation for secondary cause of low bone mineral density may be appropriate. FUTURE SCAN RECOMMENDATION: People with diagnosed cases of osteoporosis or at high risk for fracture should have regular bone mineral density tests. For patients eligible for Medicare, routine testing is allowed once every 2 years. The testing frequency can be increased to one year for patients who have rapidly progressing disease, those who are receiving or discontinuing medical therapy to restore bone mass, or have additional risk factors.
== END 2023-01-31 08:57 | disposition home or self-care (01) ==
LOC: HO.MAMMO 08:56
PROVIDERS: PCP Internal Medicine; Visit Provider Internal Medicine
DX: Z13.820 Encounter for screening for osteoporosis (principal); Z78.0 Asymptomatic menopausal state
CPT/HCPCS: 77080

== ENCOUNTER 2023-03-08 08:54 | Outpatient (AMB) | payer OTHER, SELFPAY ==
--- NOTE | 2023-03-08 09:00 | MHC.OFFVIS ---
Intake Intake Visit Reasons: LDCT SD Allergies gabapentin [GABAPENTIN] Allergy (Intermediate, Verified 12/28/22 12:47) GI UPSET acetaminophen [From Vicodin] Allergy (Unknown, Verified 12/28/22 12:47) Pruritis lorazepam [Ativan] Allergy (Unknown, Verified 12/28/22 12:47) Unknown hydrocodone [From VICODIN] Adverse Reaction (Mild, Verified 12/28/22 12:47) GI UPSET HPI HPI Comments History of Present Illness Details Kassie is a pleasant 63 year old female, former smoker with a 30 PYH, quit 2019. Patient has been smoking since age 15 for 45 years at 1 ppd. Reports daily marijuana use. Denies exposure to chemicals or substances like asbestos. Admits second hand smoke exposure. Denies known family history of lung cancer. Denies personal history of cancers. Denies chest CT in last year. Denies recent travel outside the [place]. Denies testing positive for COVID. Admits receiving COVID Vaccine. Denies fever, chills, chest pain, new cough, hemoptysis or unintentional weight loss. Lung Cancer Screening Questionnaire reviewed with patient by provider. Shared Decision Making Completed. Discussed in detail with patient, the risk versus benefit of LDCT screening. Patient in agreement of proceeding with scan. [facility] Medical History Mixed hyperlipidemia Breast calcification, right Cutaneous lupus erythematosus Insomnia Cervical spinal stenosis Fibromyalgia GERD without esophagitis Vitamin D deficiency Tinea corporis Acquired hypothyroidism Depression Anxiety Lumbar degenerative disc disease Right shoulder pain Myalgia Arthralgia Benign essential hypertension Pure hypercholesterolemia Surgical History Hx of total ankle replacement Hx of endoscopy History of colonoscopy (~10/01/13) History of total ankle replacement Family History Father Hypertension Mother Stroke Cancer Diabetes Rheumatoid arthritis SLE (systemic lupus erythematosus) Paternal Grandmother Colon cancer Other Mental health problem Substance abuse Social History Household Members: Children Household Members Other:: Son Housing: Apartment Alcohol intake: current Alcohol intake frequency: does not drink Patient Tobacco Use Status: Former Tobacco user Quit Date: 2018 Tobacco use type: Cigarette e-Cigarette/Vaping Use: Never Used Second Hand Smoke Exposure: Yes Substance Use Type: Marijuana service: No Current occupational status: retired and disabled Sexual orientation: Straight/Heterosexual Gender identity: Female Cognitive needs: No Hearing needs: No Vision needs: Yes Assessment & Plan Assessment & Plan (1) Personal history of tobacco use: Code(s): Z87.891 - Personal history of nicotine dependence Plan Shared decision-making visit completed today in office. This patient meets criteria for LDCT for lung cancer screening purposes and is asymptomatic. Patient has been scheduled for a low dose chest CT for screening purposes at [facility]. We discussed how the results will be obtained depending on CT findings. RADS 1 and RADS 2 will receive a letter with results and will follow up for annual LDCT. Patient informed they will be contacted at later date to schedule upcoming LDCT scan. RADS 3 and RADS 4 will receive a telephone call, or an office visit after reviewing case at our Lung Cancer Conference to determine when the next LDCT will be scheduled or further interventions that may be needed. Discussed importance of screening program and compliance with yearly LDCT scan as scheduled. Risks, benefits, and alternatives were discussed in detail and patient agrees to proceed. Risks discussed include but are not limited to: radiation exposure and possibility of additional intervention for benign disease. Benefits include detection of lung cancer at an early stage. A copy of today's visit and LDCT results will be sent to patient's PCP. Incidental findings on LDCT are PCP's responsibility. If there are incidental findings, our office will ensure that PCP office is aware of these findings. All questions were answered and patient is in agreement of plan. Coding Level of Care Code Lung Cancer Screening G0296 Diagnoses Personal history of tobacco use Z87.891
== END 2023-03-08 09:22 | disposition home or self-care (01) ==
PROVIDERS: PCP Internal Medicine; Visit Provider Nurse Practitioner Family
DX: Z87.891 Personal history of nicotine dependence (principal)
CPT/HCPCS: G0296

== ENCOUNTER 2023-03-08 09:22 | Outpatient (REF) | payer OTHER, SELFPAY ==
--- NOTE | ~2023-03-08 | CT_ITS ---
EXAMINATION: CT CHEST LOW-DOSE SCREENING WITHOUT CONTRAST HISTORY: Asymptomatic patient meeting criteria for lung screening. Quit smoking 5 years ago. 43 pack-year history. PATIENT PACK-YEAR HISTORY: 43 Current Smoker: No If former smoker, years since quittin COMPARISON: None available. TECHNIQUE: Multidetector volumetric noncontrast CT imaging of the chest was obtained using low-dose screening CT technique. Axial thin section 0.625 mm reformations in soft tissue and lung windows were obtained. Sagittal and coronal reformations were obtained. Axial MIP images were also created and reviewed. RECONSTRUCTED WIDTH: 1.25 mm x 1.[address] examination was performed using dose optimization techniques as appropriate, variously including the following: *Automated exposure control *Adjustment of mA and/or kV according to patient size (this includes techniques or standardized protocols for targeted exams where dose is matched to indication/reason for exam; i.e. extremities or head) *Use of iterative reconstruction technique TOTAL EXAM DLP: 36 mGy-cm CTDIvol: 0.89 mGy FINDINGS: LUNGS: Minimal emphysematous changes are present. There is an 8 x 5 x 3 mm nodular density seen in the superior segment of the right lower lobe (5:226 and 8:65). There is a 3 mm pulmonary nodule seen in the right upper lobe medially (5:162). Lungs bilaterally symmetrically expanded. No additional focal lung nodule or mass. No effusion or pneumothorax. Central airways patent. LYMPHATIC STRUCTURES: No mediastinal, hilar or axillary adenopathy or free fluid collection. THYROID GLAND: Unremarkable to the extent seen. CARDIOVASCULAR STRUCTURES: Aortic and heart size normal. No significant coronary artery calcifications. No pericardial effusion. UPPER ABDOMEN: Included portions of the solid organs in the upper abdomen unremarkable on noncontrast imaging. OSSEOUS STRUCTURES: No suspicious focal findings. SPINAL COMPRESSION: Absent. CT/CT lung screening IMPRESSION: There is an 8 mm nodular density seen in the superior segment of the right lower lobe with some other smaller micronodules. There or minimal changes of emphysema. LUNG-RADS CATEGORY ASSESSMENT: Probably benign. INCIDENTAL FINDINGS (S CATEGORY): Finding: No incidental findings. Significance category: Normal or normal variant. RECOMMENDATION: Low-dose lung CT overall in 6 months. Visual estimate of coronary calcified plaque burden: None. However, this exam cannot replace a dedicated cardiac CT calcium score for accurate assessment.
== END 2023-03-08 09:23 | disposition home or self-care (01) ==
LOC: HO.CT 09:22
PROVIDERS: PCP Internal Medicine; Visit Provider Nurse Practitioner Family
DX: Z12.2 Encounter for screening for malignant neoplasm of respiratory organs (principal); Z87.891 Personal history of nicotine dependence
CPT/HCPCS: 71271; G0296

== ENCOUNTER 2023-04-09 12:36 | Outpatient (AMB) | payer OTHER, SELFPAY ==
--- NOTE | 2023-04-09 12:43 | A.OFFVIS_ITS ---
Intake Vital Signs 04/09/23 12:48 Height 5 ft 3 in Weight 130 lb 15.273 oz BMI 23.2 BP 120/82 Blood Pressure Location Rt brachial Position Sitting Pulse 78 Pulse Source Pulse Oximeter Pulse Oximetry (%) 97 Oxygen Delivery Method Room Air Intake Visit Reasons: Lupus Intake Note: Patient of Dr Lora last seen 12/28/22 presents today with complaints of joint pain, weakness, increasing fatigue with walking, increase in headaches, light sensitivity and abdominal bloating X3 weeks. 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 She describes increased fatigue and generalized weakness and joint ache. She also describes increased light sensitivity and general feeling of malaise. When asked, she reports that her Levothyroxine has been increased and will be checked next month to see if she is optimized. Last visit 62-year-old female with SLE returns for follow-up. She takes hydroxychloroquine 200 mg daily. She forgets to take the extra half pill. Over the last 6 months she has been doing fairly well. Except 3 weeks ago she had a few episodes of brain fog and fatigue. A few episodes of headaches and extreme sun light sensitivity. States that all the rashes on her face have resolved except for the 1 on her right uatsdin. Initial history: 61-year-old female with a past medical history of thyroid disease, chronic fatigue syndrome, fibromyalgia presents for evaluation of a positive ALEJANDRINA . She was evaluated last year by Dr. Stanley with comprehensive serology and he was negative for autoimmune rheumatic disease. Three months ago she developed rashes on her face and neck that were itchy, she was evaluated by floor layer helper Dr. Cortez who told her she has lupus. She was prescribed topical steroid creams with improvement of her skin rash. She continues to have skin rashes on her face and neck. Her repeat ALEJANDRINA testing is positive which prompted this visit. She recently went to urgent care for a swollen neck lymph node, she was prescribed prednisone 20 mg for 5 days with almost complete resolution of her symptoms. While on the prednisone she had about 30% relief of her joint pain. Otherwise she continues to have same symptoms of fatigue, and generalized aches of her muscles and joints. She smokes marijuana at night which helps her fall asleep but she has difficulty staying asleep. For her fibromyalgia she failed Cymbalta and 5 or 6 different antidepressants as she could not tolerate them. She also failed PT/OT, she tries to eat an anti inflammatory diet. Currently she is taking care of her 93-year-old father. Patient denies Raynaud's, oral or nasal ulcers, DVT or PE. COUNTS INCLUDE 234 BEDS AT THE [facility] Medical History Mixed hyperlipidemia Breast calcification, right Cutaneous lupus erythematosus Insomnia Cervical spinal stenosis Fibromyalgia GERD without esophagitis Vitamin D deficiency Tinea corporis Acquired hypothyroidism Depression Anxiety Lumbar degenerative disc disease Right shoulder pain Myalgia Arthralgia Benign essential hypertension Pure hypercholesterolemia Surgical History Hx of total ankle replacement Hx of endoscopy History of colonoscopy (~10/01/13) History of total ankle replacement Family History Father Hypertension Mother Stroke Cancer Diabetes Rheumatoid arthritis SLE (systemic lupus erythematosus) Paternal Grandmother Colon cancer Other Mental health problem Substance abuse Social History Household Members: Children Household Members Other:: Son Housing: Apartment Alcohol intake: current Alcohol intake frequency: does not drink Patient Tobacco Use Status: Former Tobacco user Quit Date: 2018 Tobacco use type: Cigarette e-Cigarette/Vaping Use: Never Used Second Hand Smoke Exposure: Yes Substance Use Type: Marijuana service: No Current occupational status: retired and disabled Sexual orientation: Straight/Heterosexual Gender identity: Female Cognitive needs: No Hearing needs: No Vision needs: Yes Review of Systems Const All systems reviewed & are unremarkable except as noted in HPI and below Physical Exam Vital Signs: Last Vital Signs Pulse 78 04/09/23 12:48 BP 120/82 04/09/23 12:48 Pulse Ox 97 02/13/24 12:48 Oxygen Delivery Method Room Air 04/09/23 12:48 BMI result Body Mass Index 23.2 Const General: cooperative and healthy appearing Nutritional Appearance: average body habitus Orientation/consciousness: patient oriented x3 Limitations: no limitations HEENT Head: Yes normocephalic and Yes atraumatic Resp Effort & Inspection: normal respiratory effort and able to speak in complete sentences Auscultation: clear to auscultation bilaterally Cardio Rate: regular rate Rhythm: regular rhythm Heart sounds: S1 normal heart sound present and S2 normal heart sound present GI Inspection: No distended Palpation (GI): Soft to palpation and nontender Skin Other: recurring papular rash on the right uatsdin She has healing papules to upper lip - patient describes current herpes outbreak and is taking valcyclovir Neuro General: patient oriented x3 and moves all extremities Gait exam (Neuro): Normal gait present Extrem Other: No synovitis, redness or warmth Normal nailfold capillaroscopy Some osteoarthritic changes of her hands Results Reviewed Results Reviewed: Laboratory Tests 12/21/22 12/21/22 12/21/22 06:45 06:45 07:54 WBC 6.0 Hgb 13.2 Hct 39.6 Plt Count 225 ESR 5 Sodium 138 Potassium 4.5 Creatinine 0.80 Estimated GFR > 60 Fasting Glucose 92 Calcium 10.1 AST 29 ALT 29 C-Reactive Protein < 0.10 Triglycerides 69 Cholesterol 190 LDL Cholesterol, Calc 117 H HDL Cholesterol 60 Vitamin B12 844 25-OH Vitamin D Total 46.5 Folate 9.5 TSH 4.23 H Free T4 0.88 Urine pH 7.0 Ur Specific [place] 1.010 Urine Protein Negative Urine Glucose (UA) Negative Urine Blood Negative Double Strand DNA Ab <1 Complement C3 89 Complement C4 15 Lung CTA 03/08/2023 CT/CT lung screening IMPRESSION: There is an 8 mm nodular density seen in the superior segment of the right lower lobe with some other smaller micronodules. There or minimal changes of emphysema. Assessment & Plan Assessment & Plan (1) SLE (systemic lupus erythematosus): Comment: dx 04/19 (+ ALEJANDRINA, cutaneous SLE, fatigue, low C3 & C4 when in a flare) HCQ started 04/19 effective Code(s): M32.9 - Systemic lupus erythematosus, unspecified Qualifiers: Systemic lupus erythematosus organ involvement: other Systemic lupus erythematosus type: unspecified Qualified Code(s): M32.19 - Other organ or system involvement in systemic lupus erythematosus (2) Acquired hypothyroidism: Code(s): E03.9 - Hypothyroidism, unspecified Plan: TSH mildly elevated today. Patient has a follow-up appointment with Dr. Riddle today (3) Exertional dyspnea: Code(s): R06.09 - Other forms of dyspnea Plan This is a 62-year-old female with mild SLE (cutaneous lupus, fatigue, ALEJANDRINA 1-160 speckled,?low C3 & C4 when in a flare)?who presents for sick visit, reporting she is in a lupus flare as described in HPI. Patient is taking 300 mg of hydroxychloroquine or 1 1/2 tablet daily. I will obtain labs today to assess if markers are corroborative and also prescribed a prednisone course. She does say that she feels winded after she climbs stairs but chest is CTA , no friction rubs or bruits, ?no breath-sound abnormalities that suggest pleurisy such rattling or crackling. She had a CTA done 03/08/2023 with no findings for pericarditis or pleurisy so we will hold the Chest Xray at this time. I think her dyspnea on climbing stairs (stated in HPI) is more related to emphysema. I have the active order for the chest xray should she develop chest congestion. Follow-up in 3 months already scheduled. She is also advised lab orders are there to be repeated before next visit I spent 25 minutes reviewing patient's chart, evaluating patient, ordering diagnostic workup, and documenting in the chart Orders: Orders XR chest 2V 04/09/23 M32.9 - Systemic lupus erythematosus, unspecified, R06.09 - Other forms of dyspnea Complete Blood Count Auto Diff 04/09/23 M32.9 - Systemic lupus erythematosus, unspecified, R06.09 - Other forms of dyspnea Comprehensive Met. Panel 04/09/23 M32.9 - Systemic lupus erythematosus, unspecified, R06.09 - Other forms of dyspnea C Reactive Protein 04/09/23 M32.9 - Systemic lupus erythematosus, unspecified, R06.09 - Other forms of dyspnea Erythrocyte Sedimentation Rate 04/09/23 M32.9 - Systemic lupus erythematosus, unspecified, R06.09 - Other forms of dyspnea Complement C3 04/09/23 M32.9 - Systemic lupus erythematosus, unspecified, R06.09 - Other forms of dyspnea Complement C4 04/09/23 M32.9 - Systemic lupus erythematosus, unspecified, R06.09 - Other forms of dyspnea Medications: New prednisone orally as directed; 2 tablets per day x 7 days, 1 tablet per day x 7 days stop 30 tabs 0RF Lupus flare M32.9 - Systemic lupus erythematosus, unspecified Coding Level of Care Code Est Pt Level 3 (09459) Diagnoses Systemic lupus erythematosus with other organ involvement, unspecified SLE type M32.19 Systemic lupus erythematosus organ involvement: other Systemic lupus erythematosus type: unspecified Acquired hypothyroidism E03.9 Exertional dyspnea R06.09
[2023-04-09 12:48] VITALS: BP 120/82; PULSE 78; O2SAT 97; BMI 23.2
== END 2023-04-09 13:14 | disposition home or self-care (01) ==
PROVIDERS: PCP Internal Medicine; Visit Provider Nurse Practitioner Family
DX: M32.19 Other organ or system involvement in systemic lupus erythematosus (principal); E03.9 Hypothyroidism, unspecified; R06.09 Other forms of dyspnea
CPT/HCPCS: 99213

== ENCOUNTER 2023-04-09 12:36 | Outpatient (REF) | payer OTHER, SELFPAY ==
[2023-04-09 13:30] LABS: MANUAL DIFF FLAG NO
[2023-04-09 14:20] LABS: Basophils Absolute Auto 0.1 X10*3/uL (0.0-0.2); Basophils Percent Auto 0.7 % (0-2); Eosinophils Absolute Auto 0.2 X10*3/uL (0.0-0.4); Eosinophils Percent Auto 2.4 % (0-4); Hematocrit 39.2 % (37.0-47.0); Hemoglobin 13.2 g/dl (12.0-16.0); Imm Gran Abs Auto 0.02 X10*3/uL (0.00-0.03); Imm Gran Pct Auto 0.2 % (0.0-0.4); Lymphocytes Percent Auto 36.1 % (20-40); Mean Corpuscular HGB Conc 33.7 g/dl (31.0-35.0); Mean Corpuscular Hemoglobin 29.1 pg (27.0-33.0); Mean Corpuscular Volume 86.3 fL (80.0-98.0); Mean Platelet Volume 10.3 fL (9.4-12.3); Monocytes Absolute Auto 0.6 X10*3/uL (0.1-1.2); Neutrophils Absolute Auto 4.4 x10*3/uL (2.0-8.3); Neutrophils Percent Auto 53.6 % (45-73); Platelet Count 234 X10*3/uL (160-400); Red Blood Count 4.54 X10*6/uL (4.20-5.50); Red Cell Distribution Width 12.7 % (11.0-16.0); White Blood Count 8.2 X10*3/uL (4.8-10.8)
[2023-04-09 14:32] LABS: Alanine Aminotransferase 22 U/L (0-31); Albumin Level 4.4 g/dL (3.5-5.0); Alkaline Phosphatase 53 U/L (39-117); Anion Gap 12 (12-20); Aspartate Amino Transferase 25 U/L (5-31); Bilirubin Total 0.4 mg/dL (0.0-1.0); Blood Urea Nitrogen 16 mg/dL (9-16); C Reactive Protein < 0.04 mg/dL (< or = 0.50); Calcium 9.8 mg/dL (8.4-10.2); Carbon Dioxide 27 mmol/L (22-29); Chloride 105 mmol/L (96-108); Estimated Glomerular Filt Rate > 60; Glucose Random 62 mg/dL (60-115); Potassium 4.5 mmol/L (3.3-5.1); Sodium 139 mmol/L (135-145); Total Protein 7.4 g/dL (6.5-8.0)
[2023-04-09 14:55] LABS: Erythrocyte Sedimentation Rate 3 MM/HR (0-20)
[2023-04-10 11:49] LABS: Complement C3 87 mg/dL (83-193)
== END 2023-04-09 12:37 | disposition home or self-care (01) ==
LOC: HO.LAB 12:36
PROVIDERS: PCP Internal Medicine; Visit Provider Nurse Practitioner Family
DX: M32.9 Systemic lupus erythematosus, unspecified (principal); R06.09 Other forms of dyspnea; M32.19 Other organ or system involvement in systemic lupus erythematosus; E03.9 Hypothyroidism, unspecified
CPT/HCPCS: 36415; 80053; 85025; 85652; 86140; 86160; 99212

== ENCOUNTER 2023-04-25 06:07 | Outpatient (REF) | payer OTHER, SELFPAY ==
[2023-04-25 08:07] LABS: Appearance Urine Clear; Color Urine Yellow; Glucose Urine UA Negative (Negative); Leukocyte Esterase Urine Trace (Negative); Nitrite Urine Negative (Negative); UMIC TRIGGER UACC YES; Urine Blood Negative (Negative); Urine Ketones Negative (Negative); Urine Protein Negative (Neg-Trace)
[2023-04-25 08:08] LABS: Cholesterol 165 mg/dL (<200); HDL Cholesterol 47 mg/dL (>40); LDL Cholesterol Calculated 102 mg/dL (<100); Triglycerides 83 mg/dL (<150)
[2023-04-25 08:20] LABS: Bacteria Urine None Seen (None Seen); Hyaline Casts Urine 0-2 /LPF (0-2); RBC Urine 0-2 /HPF (0-2); Squamous Epithelial Cell Urine 0-2 /HPF (0-2); WBC Urine 0-5 /HPF (0-5)
[2023-04-25 08:26] LABS: Free T4 (Free Thyroxine) 0.88 ng/dL (0.71-1.85); Thyroid Stimulating Hormone 3.64 uIU/mL (0.32-4.0); Vitamin D 25-OH Total 37.1 ng/mL (>30)
== END 2023-04-25 06:08 | disposition home or self-care (01) ==
LOC: HO.LAB 06:07
PROVIDERS: PCP Internal Medicine; Visit Provider Internal Medicine
DX: E03.9 Hypothyroidism, unspecified (principal); E55.9 Vitamin D deficiency, unspecified; E78.00 Pure hypercholesterolemia, unspecified
CPT/HCPCS: 36415; 80061; 81001; 81003; 82306; 84439; 84443; 87086

== ENCOUNTER 2023-04-29 10:41 | Outpatient (AMB) | payer OTHER, SELFPAY ==
[2023-04-29 10:45] VITALS: BP 110/66; PULSE 74; O2SAT 100; BMI 22.5
--- NOTE | 2023-04-29 10:45 | MHC.PC.OV ---
Vital Signs 04/29/23 10:45 Height 5 ft 3 in Weight 127 lb 0.4 oz BMI 22.5 BP 110/66 Blood Pressure Location Lt brachial Position Sitting Pulse 74 Pulse Source Pulse Oximeter Pulse Oximetry (%) 100 Oxygen Delivery Method Room Air Intake Visit Reasons: 4mth f/u Intake Note: Patient is here to follow up on 4 months Barrel Charrer Required: No Allergies gabapentin [GABAPENTIN] Allergy (Intermediate, Verified 04/29/23 11:24) GI UPSET acetaminophen [From Vicodin] Allergy (Unknown, Verified 04/29/23 11:24) Pruritis lorazepam [Ativan] Allergy (Unknown, Verified 04/29/23 11:24) Unknown hydrocodone [From VICODIN] Adverse Reaction (Mild, Verified 04/29/23 11:24) GI UPSET Medication List - Last Reconciled 04/29/23 by Raleigh Riddle MD acetaminophen (Tylenol) 650 mg PO Q6H PRN amlodipine 2.5 mg PO DAILY 90 days betamethasone dipropionate 0.05% topical buspirone 7.5 mg PO BID cholecalciferol (vitamin D3) 25 mcg PO DAILY 90 days cyclobenzaprine 10 mg PO TID PRN 30 days hydrocortisone valerate 0.2% topical BID hydroxychloroquine 300 mg PO DAILY levothyroxine 100 mcg PO QAM 90 days omeprazole 20 mg PO DAILY valacyclovir 1,000 mg PO BID Tobacco use date assessed: 04/29/23 Dental Screening Dental Screen Date: 04/29/23 HPI 4mth f/u HPI Details Patient comes in today for her follow up visit States that she currently feels okay Relates that her increased SOB a couple of weeks ago when she was seen by rheumatology turned out to be a respiratory infection as someone in her household came down with similar symptoms States that they tested negative for COVID but she suspects that they may have contracted RSV then Relates that most of her symptoms have cleared up since but her ANGUIANO remains She also did not take the oral Prednisone taper prescribed to her by rheumatology back then as she states that she lost her Rx during their recent move States that she just had her low dose CT lung screening done back in February 2023 and was advised that she has a small nodule in her right upper lung as well as some changes of COPD and was advised that she should get this repeated in 6 months She now recalls seeing some other findings on some CT done at [facility] a few years ago and brought in a copy of her report from back in 01/2016 when she had an abdominal and pelvic CT done at [facility] that incidentally revealed a 1 x 1 cm bulla seen on her right lower lung, and is wondering if these are the same lesions and if not, why this was not mentioned on her recent lung scan She denies any fever, headaches or dizziness lately Denies any chest pains No nausea/vomiting, no abdominal pain and no change in bowel habits noted Had her follow up labs done a few weeks ago - to discuss her results [facility] Medical History Osteopenia Mixed hyperlipidemia Breast calcification, right Cutaneous lupus erythematosus Insomnia Cervical spinal stenosis Fibromyalgia GERD without esophagitis Vitamin D deficiency Tinea corporis Acquired hypothyroidism Depression Anxiety Lumbar degenerative disc disease Right shoulder pain Myalgia Arthralgia Benign essential hypertension Pure hypercholesterolemia Surgical History Hx of total ankle replacement Hx of endoscopy History of colonoscopy (~10/01/13) History of total ankle replacement Family History Father Hypertension Mother Stroke Cancer Diabetes Rheumatoid arthritis SLE (systemic lupus erythematosus) Paternal Grandmother Colon cancer Other Mental health problem Substance abuse Social History Household Members: Children Household Members Other:: Son Housing: Apartment Alcohol intake: current Alcohol intake frequency: does not drink Patient Tobacco Use Status: Former Tobacco user Quit Date: 2018 Tobacco use type: Cigarette e-Cigarette/Vaping Use: Never Used Second Hand Smoke Exposure: Yes Substance Use Type: Marijuana service: No Current occupational status: retired and disabled Sexual orientation: Straight/Heterosexual Gender identity: Female Cognitive needs: No Hearing needs: No Vision needs: Yes Questionnaire PHQ-9 Over the last 2 weeks, how often have you been bothered by any of the following problems? 1. Little interest or pleasure in doing things: not at all 2. Feeling down, depressed, or hopeless: not at all 3. Trouble falling or staying asleep, or sleeping too much: not at all 4. Feeling tired or having little energy: not at all 5. Poor appetite or overeating: not at all 6. Feeling bad about yourself - or that you are a failure or have let yourself or your family down: not at all 7. Trouble concentrating on things, such as reading the newspaper or watching television: not at all 8. Moving or speaking so slowly that other people could have noticed. Or the opposite - being so fidgety or restless that you have been moving around a lot more than usual: not at all 9. Thoughts that you would be better off or of hurting yourself in some way: not at all Total score: 0 Depression Screening Interpretation: Negative Depression Screening Done: Yes 90107 - PHQ-9 Billing: Yes Source: Developed by Drs. Michael Yao, Francine Godinez, Sriram Knott and colleagues, with an educational pramod from [employer]. Thrive Questionnaire Date Thrive assessed: 04/29/23 I am a: Patient What is your living situation today?: I have a steady place to live Within the past 12 months, did the food you bought not last and you didn't have the money to get more?: Never true Within the past 12 months, did you worry whether your food would run out before you got money to buy more?: Never true Do you have trouble paying for medicines?: No Do you have trouble getting transportation to medical appointments?: No Do you have trouble paying your heating and electricity bill?: No Do you have trouble taking care of your child, family member or friend?: No Do you have trouble with day-to-day activities such as bathing, preparing meals, shopping, managing finances, etc.?: No Are you currently unemployed and looking for a job?: No Are you interested in more education?: No Please select the resources that you would like help with: None Currently or been in a relationship where the following occur: no concerns reported THRIVE Score: 0 AUDIT C Alcohol Use Questionnaire (AUDIT-C) 1. How often do you have a drink containing alcohol?: Never 3. How often do you have six or more drinks on one occasion?: Never Total Score: 0 Score Reviewed/Action Taken: Yes MARGARITO-7 AMB Questionnaire MARGARITO-7 Date MARGARITO - 7 assessed: 04/29/23 Source: Developed by Drs. Michael Yao, Francine Godinez, Sriram Knott and colleagues, with an educational pramod from [employer]. Review of Systems Const Denies chills, Denies fatigue, Denies fever(s) and Denies headache(s) ENT Denies dysphagia, Denies dizziness, Denies otalgia, Denies headache(s), Denies neck pain, Denies odynophagia and Denies sore throat Card Denies chest pain, Denies rapid heart rate, Denies irregular heart rhythm, Denies palpitations and Reports dyspnea on exertion (mild, chronic but feels this has increased slightly recently) Resp Denies chest congestion, Denies cough, Reports dyspnea on exertion (mild, chronic but feels this has increased slightly recently) and Denies wheezing GI Denies abdominal pain, Denies bloating, Denies constipation, Denies dysphagia, Denies heartburn, Denies diarrhea, Denies nausea, Denies odynophagia and Denies vomiting Denies hematuria, Denies urinary frequency, Denies dysuria (but reports (+) mild burning sensation at times), Denies urinary incontinence and Denies urinary urgency Musc Reports back pain (over the mid to lower back), Reports myalgias, Reports arthralgias (on and off, increased lately - see HPI), Denies neck pain and Reports stiffness Skin/Breast Details: (+) multiple pimple-like lesions on her forehead and face Neuro Denies dizziness, Denies headache(s) and Denies paresthesias Psych Denies anxiety and Denies depression Endo Denies fatigue and Denies palpitations Torres/Lymph Denies easy bruising Aller/Immun Denies wheezing Physical exam (Primary Care) Vital Signs: Last Vital Signs Pulse 74 04/29/23 10:45 BP 110/66 04/29/23 10:45 Pulse Ox 100 04/29/23 10:45 Oxygen Delivery Method Room Air 04/29/23 10:45 BMI result Body Mass Index 22.5 Tobacco/Smoking Status: Tobacco use Status Tobacco use date assessed 04/29/23 04/29/23 10:51 Patient Tobacco Use Status Former Tobacco user 04/29/23 10:51 Tobacco use type Cigarette 04/29/23 10:51 e-Cigarette/Vaping Use Never Used 04/29/23 10:51 PHQ-9: PHQ-9 Score PHQ-9: Total score 0 04/29/23 11:26 Depression Screening Interpretation: Negative Thrive Assessment: Date of Thrive Assessment Date Thrive assessed 04/29/23 04/29/23 10:51 Currently or been in a relationship where the following occur: no concerns reported Const General: no acute distress and alert HENMT Ears: TM's normal bilaterally and EAC's normal Throat: Yes posterior oropharynx normal and Yes tonsils normal (no TP congestion) Neck Neck: Yes no lymphadenopathy and Yes supple Thyroid: Thyroid normal Resp Auscultation: clear to auscultation bilaterally, no rales and no wheezes Cardio Rate: regular rate Rhythm: regular rhythm Heart sounds: no murmurs GI Palpation (GI): Soft to palpation and nontender Auscultation: normal bowel sounds General: Yes no CVA tenderness Back/Spine/Pelvis Back: no CVA tenderness Cervical Spine: cervical muscular tenderness (mild) and Cervical spine tenderness Thoracic/Lumbar Spine: paraspinal muscle tenderness bilaterally in the upper thoracic, in the upper lumbar, in the mid lumbar and in the lower lumbar and lumbar spinal tenderness Skin Other: (+) few scattered erythematous papular lesions on the forehead and on the face Extrem General: Yes no clubbing, cyanosis or edema Results AMB Urinalysis, Automated UA Leukoctes 0 Vipul/uL Last Edit by SUSI Gonzalez on 04/29/23 11:52 UA Nitrite Negative Last Edit by SUSI Gonzalez on 04/29/23 11:52 UA Urobilinogen 0.2 mg/dL Last Edit by SUSI Gonzalez on 04/29/23 11:52 UA Protein 0 mg/dL Last Edit by SUSI Gonzalez on 04/29/23 11:52 UA pH 6.0 Last Edit by SUSI Gonzalez on 04/29/23 11:52 UA Blood 0 Jose/uL Last Edit by SUSI Gonzalez on 04/29/23 11:52 UA Specific [place] 1.010 Last Edit by SUSI Gonzalez on 04/29/23 11:52 UA Ketone Negative Last Edit by SUSI Gonzalez on 04/29/23 11:52 UA Bilirubin 0 mg/dL Last Edit by SUSI Gonzalez on 04/29/23 11:52 UA Glucose 0 mg/dL Last Edit by SUSI Gonzalez on 04/29/23 11:52 Results Reviewed Results Reviewed: Laboratory Tests 04/09/23 04/09/23 04/25/23 13:28 13:28 06:27 WBC 8.2 Hgb 13.2 Hct 39.2 Plt Count 234 ESR 3 Sodium 139 Potassium 4.5 Creatinine 0.75 Estimated GFR > 60 Random Glucose 62 Calcium 9.8 AST 25 ALT 22 Triglycerides 83 Cholesterol 165 LDL Cholesterol, Calc 102 H HDL Cholesterol 25-OH Vitamin D Total TSH Free T4 Ur Specific [place] Urine Protein Urine Glucose (UA) Urine Blood Urine Nitrite Ur Leukocyte Esterase 04/25/23 04/25/23 06:27 06:30 WBC Hgb Hct Plt Count ESR Sodium Potassium Creatinine Estimated GFR Random Glucose Calcium AST ALT Triglycerides Cholesterol LDL Cholesterol, Calc HDL Cholesterol 47 25-OH Vitamin D Total 37.1 TSH 3.64 Free T4 0.88 Ur Specific [place] 1.010 Urine Protein Negative Urine Glucose (UA) Negative Urine Blood Negative Urine Nitrite Negative Ur Leukocyte Esterase Trace H Assessment and Plan Assessment & Plan (1) Cutaneous lupus erythematosus: Code(s): L93.2 - Other local lupus erythematosus Plan: Continue Hydroxychloroquine 300 mg QD Follow up with rheumatology as scheduled Emphasized again avoidance of sun exposure (2) Fibromyalgia: Code(s): M79.7 - Fibromyalgia Plan: Patient is again encouraged to continue to stay active and exercise regularly Has been referred to physical therapy in the past when needed with (+) slight improvement of her symptoms Patient also continues to follow up with [facility] as scheduled for pain management and trigger point injections Follows up also with [facility] (Dr. Rodriguez) as scheduled - MS has been previously ruled out Continue Cyclobenzaprine 5 mg TID PRN (3) Fatigue: Code(s): R53.83 - Other fatigue Qualifiers: Fatigue type: unspecified Qualified Code(s): R53.83 - Other fatigue Plan: Likely also multifactorial, including related to her fibromyalgia as well as her recent bout with respiratory infection (she suspects RSV as she tested negative for COVID) Recent labs/serologies ordered by rheumatology, including C3 and C4 levels as well as liver and kidney microsomal antibodies and antimitochondrial Ab, all of which came back normal Advised to consider referral to Sleep Medicine if her increased fatigue persists, although patient feels that she sleeps well at night Is advised that sleeping well at night and Sleep Apnea are 2 very different situations and one does not necessarily have anything to do with the other (4) Arthralgia: Code(s): M25.50 - Pain in unspecified joint Qualifiers: Joint pain location: unspecified Qualified Code(s): M25.50 - Pain in unspecified joint Plan: Follow up with rheumatology as scheduled - has been diagnosed with polyarthralgia in addition to her fibromyalgia (5) Exertional dyspnea: Code(s): R06.09 - Other forms of dyspnea Plan: Most likely multifactorial, including physical deconditioning PFTs done at [facility] in 2017 and 2019 both came back grossly normal A myocardial perfusion study done a couple of years ago (in mid-2019) both came out normal but with her reported increasing SOB again lately, will send her for repeat PFTs for follow up She is also concerned about possible progression of her COPD and is advised that the repeat PFTs should provide us with more information regarding this (6) Lung bullae: Code(s): J43.9 - Emphysema, unspecified Plan: She has a right lower lobe pulmonary cyst or bulla measuring about 1.1 cm seen incidentally on her abdominal / pelvic CT done at [facility] back in 01/2016 and she is now just bringing that to our attention She is concerned as to why there was no mention of this in her recent low dose CT lung screening, which revealed an 8 mm nodular density seen in the superior segment of the right lower lobe that they say is likely benign, as well as (+) minimal changes of emphysema. A repeat low dose CT lung screening was recommended in 6 months Will send patient for a chest CT to further evaluate the pulmonary bulla seen on her right lower lobe in 2016 - she is advised that a low dose CT lung screening may not have enough resolution to visualize this so a regular chest CT will be needed at this time (7) Mixed hyperlipidemia: Code(s): E78.2 - Mixed hyperlipidemia Plan: Results of her labs done a few weeks ago reviewed and discussed with patient - advised that her cholesterol levels have improved slightly from previous Reinforced low cholesterol diet (8) Benign essential hypertension: Code(s): I10 - Essential (primary) hypertension Plan: Reinforced low sodium diet - goal is systolic BP of 120 mm or less Continue Amlodipine 2.5 mg QD (9) Acquired hypothyroidism: Code(s): E03.9 - Hypothyroidism, unspecified Plan: Her TFTs are now back to normal on her recent labs with the dose adjustment she had at her last visit Continue Levothyroxine 100 mcg QD (10) Cervical spinal stenosis: Comment: (+) cervical radiculopathy, worse on the left side Code(s): M48.02 - Spinal stenosis, cervical region Plan: Cervical spine imaging done a couple of years ago revealed (+) neuroforaminal stenosis, most pronounced at C6-C7 and greater on the left than the right side Follow-up with [facility] as scheduled for pain management (11) Lumbar degenerative disc disease: Code(s): M51.36 - Other intervertebral disc degeneration, lumbar region Plan: Reinforced activity and weight lifting restrictions Lumbar spine MRI done at [facility] on 08/22/2019 showed a right-sided foraminal disc osteophyte protrusion at the L4-L5 level that contacts the right L4 nerve root as well as multilevel degenerative changes She was referred to and seen by Neurosurgery and was advised that there is no surgical indication at the time; she was then referred to [facility] who recommended PT and OT only as needed Follow up with [facility] as scheduled (12) Osteopenia: Code(s): M85.80 - Other specified disorders of bone density and structure, unspecified site Qualifiers: Osteopenia location: unspecified Qualified Code(s): M85.80 - Other specified disorders of bone density and structure, unspecified site Plan: Patient is advised that her BASELINE BMD done in January 2023 revealed (+) osteopenia based on the lowest T-score value of -1.4 in the lumbar spine; her T-score in the left femoral neck was also low at -1.2 Have recommended to patient to make sure she stays active and continue to try to exercise regularly, and to also contune taking OTC Vitamin D and Calcium daily Patient would like to hold off on Rx for Tx for now, and will recheck her BMD in 2 to 3 years for follow up (13) Headache: Code(s): R51.9 - Headache, unspecified Qualifiers: Headache type: unspecified Headache chronicity pattern: episodic headache Intractability: not intractable Qualified Code(s): R51.9 - Headache, unspecified Plan: States that her recent headaches are adequately relieved when she takes OTC Tylenol Have advised that based on her symptoms, her headaches appear consistent with migraine headaches Patient states that she will call if her headaches persist or get worse - may need to consider prophylactic Tx then Reinforced avoidance of any potential migraine triggers (14) Vitamin D deficiency: Code(s): E55.9 - Vitamin D deficiency, unspecified Plan: Continue Vitamin D3 1000 units QD (15) GERD without esophagitis: Code(s): K21.9 - Gastro-esophageal reflux disease without esophagitis Plan: Dietary restrictions reinforced Continue Omeprazole 20 mg QD (16) Dysuria: Code(s): R30.0 - Dysuria Plan: She is reassured that her in-office urinalysis done today came out normal/negative and reassured that she does NOT have any evidence of a urinary tract infection at present She is reminded to continue to increase her oral fluid intake regularly/daily (17) Insomnia: Code(s): G47.00 - Insomnia, unspecified Qualifiers: Insomnia type: unspecified Qualified Code(s): G47.00 - Insomnia, unspecified Plan: Sleep hygiene reinforced Used to take Zolpidem in the past but has been only taking OTC Melatonin 6 mg Q HS PRN for the past year or two with good results (18) Anxiety: Code(s): F41.9 - Anxiety disorder, unspecified Plan: Continue Lorazepam 0.5 mg QD PRN and Buspirone 7.5 mg QD (19) Depression: Code(s): F32.9 - Major depressive disorder, single episode, unspecified Qualifiers: Depression Type: major depressive disorder Major depression recurrence: recurrent Active/Remission status: currently active Major depression episode severity: unspecified Qualified Code(s): F33.9 - Major depressive disorder, recurrent, unspecified Plan: Patient could not tolerate multiple antidepressants in the past Has been doing a lot better since her TMS at [facility] that she completed a couple of years ago (2019) Follow-up with Psychiatry as scheduled Plan Follow up in 4 months Orders: Orders PFT pulmonary function test Today J44.9 - Chronic obstructive pulmonary disease, unspecified, R06.09 - Other forms of dyspnea CT chest wo/w IV con Today J43.9 - Emphysema, unspecified AMB Urinalysis Automated Today R30.0 - Dysuria Medications: Changed From hydroxychloroquine Take 1 tablet daily alternating with 2 tabs daily 135 tabs 1RF To hydroxychloroquine 300 mg PO DAILY Coding Level of Care Code Est Pt Level 4 (60022) Diagnoses Cutaneous lupus erythematosus L93.2 Fibromyalgia M79.7 Fatigue, unspecified type R53.83 Fatigue type: unspecified Arthralgia, unspecified joint M25.50 Joint pain location: unspecified Exertional dyspnea R06.09 Lung bullae J43.9 Mixed hyperlipidemia E78.2 Benign essential hypertension I10 Acquired hypothyroidism E03.9 Cervical spinal stenosis M48.02 Lumbar degenerative disc disease M51.36 Osteopenia, unspecified location M85.80 Osteopenia location: unspecified Nonintractable episodic headache, unspecified headache type R51.9 Headache type: unspecified Headache chronicity pattern: episodic headache Intractability: not intractable Vitamin D deficiency E55.9 GERD without esophagitis K21.9 Dysuria R30.0 Insomnia, unspecified type G47.00 Insomnia type: unspecified Anxiety F41.9 Episode of recurrent major depressive disorder, unspecified depression episode severity F33.9 Depression Type: major depressive disorder Major depression recurrence: recurrent Active/Remission status: currently active Major depression episode severity: unspecified
== END 2023-04-29 11:54 | disposition home or self-care (01) ==
PROVIDERS: PCP Internal Medicine; Visit Provider Internal Medicine
DX: R30.0 Dysuria (principal)
CPT/HCPCS: 81003; 99214

== ENCOUNTER 2023-05-08 09:29 | Outpatient (AMB) | payer OTHER, SELFPAY ==
[2023-05-08 09:31] VITALS: BP 100/60; PULSE 74; BMI 22.8
--- NOTE | 2023-05-08 09:31 | MHC.OFFVIS ---
Intake Vital Signs 05/08/23 09:31 Height 5 ft 3 in Weight 128 lb 11.999 oz BMI 22.8 BP 100/60 Blood Pressure Location Lt brachial Position Sitting Pulse 74 Intake Visit Reasons: 1 year f/u Intake Note: pt its here for her 1 yr f/up/ pt its feeling fine. 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 Accompanied by: Self / Same As Patient Allergies gabapentin [GABAPENTIN] Allergy (Intermediate, Verified 04/29/23 11:24) GI UPSET acetaminophen [From Vicodin] Allergy (Unknown, Verified 04/29/23 11:24) Pruritis lorazepam [Ativan] Allergy (Unknown, Verified 04/29/23 11:24) Unknown hydrocodone [From VICODIN] Adverse Reaction (Mild, Verified 04/29/23 11:24) GI UPSET Medication List - Last Reconciled 05/08/23 by Alvarado Abdalla MD acetaminophen (Tylenol) 650 mg PO Q6H PRN amlodipine 2.5 mg PO DAILY 90 days betamethasone dipropionate 0.05% topical buspirone 7.5 mg PO BID cholecalciferol (vitamin D3) 25 mcg PO DAILY 90 days cyclobenzaprine 10 mg PO TID PRN 30 days hydrocortisone valerate 0.2% topical BID hydroxychloroquine 300 mg PO DAILY levothyroxine 100 mcg PO QAM 90 days omeprazole 20 mg PO DAILY valacyclovir 1,000 mg PO BID HPI HPI Comments History of Present Illness Details 61-year-old female who is here for follow-up. She was seen for palpitations and fatigue. She has significant neurological complain as well as muscle aches. She has been diagnosed with fibromyalgia. Previously she was thought to have multiple sclerosis but she has been told that she does not have multiple sclerosis. She has chest pain for which she underwent stress testing which was normal. Because of her elevated blood pressure she was started on amlodipine 2.5 mg daily. She has been tolerating that well. Her blood pressure control has been good. On follow-up she is doing well. She has been active and exercising regularly without any significant limitations. She has been diagnosed with cutaneous lupus and will be following with rheumatology. 05/08/23: She returns for follow-up. Blood pressure is actually somewhat low but she has no dizziness or lightheadedness. She is taking amlodipine 2.5 mg daily. Her symptoms are again quite vague including fatigue and weakness etc.. She has been following with rheumatology for cutaneous lupus and is on hydroxychloroquine. [facility] Medical History Osteopenia Mixed hyperlipidemia Breast calcification, right Cutaneous lupus erythematosus Insomnia Cervical spinal stenosis Fibromyalgia GERD without esophagitis Vitamin D deficiency Tinea corporis Acquired hypothyroidism Depression Anxiety Lumbar degenerative disc disease Right shoulder pain Myalgia Arthralgia Benign essential hypertension Pure hypercholesterolemia Surgical History Hx of total ankle replacement Hx of endoscopy History of colonoscopy (~10/01/13) History of total ankle replacement Family History Father Hypertension Mother Stroke Cancer Diabetes Rheumatoid arthritis SLE (systemic lupus erythematosus) Paternal Grandmother Colon cancer Other Mental health problem Substance abuse Social History Household Members: Children Household Members Other:: Son Housing: Apartment Alcohol intake: current Alcohol intake frequency: does not drink Patient Tobacco Use Status: Former Tobacco user Quit Date: 2018 Tobacco use type: Cigarette e-Cigarette/Vaping Use: Never Used Second Hand Smoke Exposure: Yes Substance Use Type: Marijuana service: No Current occupational status: retired and disabled Sexual orientation: Straight/Heterosexual Gender identity: Female Cognitive needs: No Hearing needs: No Vision needs: Yes Review of Systems Const Denies chills, Denies fatigue, Denies fever(s), Denies frequent falls, Denies weakness, Denies weight gain and Denies weight loss ENT Denies dizziness Card Denies chest pain, Denies leg edema, Denies lightheadedness, Denies palpitations, Denies dyspnea and Denies dyspnea on exertion Resp Denies cough, Denies dyspnea and Denies dyspnea on exertion GI Denies hematochezia Musc Denies abnormal gait, Denies muscle weakness, Denies numbness, Denies radiating pain into limb and Denies tingling Neuro Denies abnormal gait, Denies dizziness, Denies frequent falls, Denies numbness, Denies tingling and Denies weakness Endo Denies fatigue and Denies palpitations Physical Exam Vital Signs: Last Vital Signs Pulse 74 05/08/23 09:31 BP 100/60 05/08/23 09:31 BMI result Body Mass Index 22.8 GENERAL APPEARANCE: in no acute distress, pleasant. NECK/THYROID: no carotid bruit, no jugular venous distention. SKIN: no suspicious lesions, warm and dry. HEART: no murmurs, regular rate and rhythm. LUNGS: clear to auscultation bilaterally. ABDOMEN: soft, nontender. EXTREMITIES: no edema. PERIPHERAL PULSES: equal. NEUROLOGIC: No gross deficits, AAO X 3 Office Procedures EKG Details: Sinus rhythm 74 beats per minute, normal axis, septal infarct, QTC 412 milliseconds. [id number], Complete Assessment & Plan Assessment & Plan (1) Mixed hyperlipidemia: Code(s): E78.2 - Mixed hyperlipidemia (2) Benign essential hypertension: Code(s): I10 - Essential (primary) hypertension Plan 63-year-old female who is here for follow-up. She has known history of hypertension in the past and has been on amlodipine. Blood pressure is actually low but she has no symptoms. Her blood pressure has fluctuated in the past. She should be hydrating herself well. If any concerns about dizziness or lightheadedness I think amlodipine should be stopped and BP should be reassessed. Fatigue is her main complaint and she follows with rheumatology for cutaneous lupus. No major cardiovascular issues currently. She should have yearly lipid panels. We discussed about as needed follow-up and she is agreeable. She will see us PRN. Thank you for allowing me to participate in the care of your patient. Please feel free to contact me if you have any questions. Coding Level of Care Code Est Pt Level 3 (16923) Diagnoses Mixed hyperlipidemia E78.2 Benign essential hypertension I10 CPT Codes EKG - CPT: 76000-[id number], Complete ([id number])
== END 2023-05-08 10:12 | disposition home or self-care (01) ==
PROVIDERS: PCP Internal Medicine; Visit Provider Internal Medicine Cardiovascular Disease
DX: E78.2 Mixed hyperlipidemia (principal); I10 Essential (primary) hypertension
CPT/HCPCS: 93010; 99213

== ENCOUNTER → 2023-05-08 09:29 | Outpatient (BNVA) | payer OTHER, SELFPAY | PROVIDERS: PCP Internal Medicine; Visit Provider Internal Medicine Cardiovascular Disease | DX: E78.2 Mixed hyperlipidemia (principal); I10 Essential (primary) hypertension; Z79.899 Other long term (current) drug therapy | CPT/HCPCS: 93005; 99212 ==

== ENCOUNTER 2023-07-05 05:58 | Outpatient (REF) | payer OTHER, SELFPAY ==
[2023-07-05 06:14] LABS: MANUAL DIFF FLAG NO
[2023-07-05 07:49] LABS: Basophils Absolute Auto 0.1 X10*3/uL (0.0-0.2); Basophils Percent Auto 0.9 % (0-2); Eosinophils Absolute Auto 0.5 X10*3/uL (0.0-0.4); Eosinophils Percent Auto 5.5 % (0-4); Hematocrit 40.7 % (37.0-47.0); Hemoglobin 13.5 g/dl (12.0-16.0); Imm Gran Abs Auto 0.02 X10*3/uL (0.00-0.03); Imm Gran Pct Auto 0.2 % (0.0-0.4); Lymphocytes Absolute Auto 3.1 X10*3/uL (1.2-4.9); Lymphocytes Percent Auto 35.2 % (20-40); Mean Corpuscular HGB Conc 33.2 g/dl (31.0-35.0); Mean Corpuscular Volume 87.5 fL (80.0-98.0); Mean Platelet Volume 10.8 fL (9.4-12.3); Monocytes Absolute Auto 0.7 X10*3/uL (0.1-1.2); Monocytes Percent Auto 7.5 % (2-11); NRBC Pct Auto 0.2 /100WBC (0.0-0.2); Neutrophils Absolute Auto 4.5 x10*3/uL (2.0-8.3); Neutrophils Percent Auto 50.7 % (45-73); Platelet Count 215 X10*3/uL (160-400); Red Blood Count 4.65 X10*6/uL (4.20-5.50); Red Cell Distribution Width 13.3 % (11.0-16.0); White Blood Count 8.8 X10*3/uL (4.8-10.8)
[2023-07-05 07:53] LABS: Appearance Urine Clear; Color Urine Yellow; Glucose Urine UA Negative (Negative); Leukocyte Esterase Urine Negative (Negative); Nitrite Urine Negative (Negative); Specific Gravity - Urine <= 1.005 (1.005-1.025); Urine Blood Negative (Negative); Urine Ketones Negative (Negative); Urine Protein Negative (Neg-Trace)
[2023-07-05 07:58] LABS: Bacteria Urine None Seen (None Seen); Hyaline Casts Urine 0-2 /LPF (0-2); RBC Urine 0-2 /HPF (0-2); Squamous Epithelial Cell Urine 0-2 /HPF (0-2); WBC Urine 0-5 /HPF (0-5)
[2023-07-05 08:12] LABS: Alanine Aminotransferase 30 U/L (0-31); Albumin Level 4.4 g/dL (3.5-5.0); Alkaline Phosphatase 57 U/L (39-117); Anion Gap 12 (12-20); Aspartate Amino Transferase 26 U/L (5-31); Bilirubin Total 0.6 mg/dL (0.0-1.0); Blood Urea Nitrogen 13 mg/dL (9-16); C Reactive Protein < 0.10 mg/dL (< or = 0.50); Calcium 9.6 mg/dL (8.4-10.2); Carbon Dioxide 27 mmol/L (22-29); Chloride 103 mmol/L (96-108); Estimated Glomerular Filt Rate > 60; Glucose Random 83 mg/dL (60-115); Potassium 4.4 mmol/L (3.3-5.1); Sodium 138 mmol/L (135-145); Total Protein 7.5 g/dL (6.5-8.0)
[2023-07-05 08:17] LABS: Creatinine Urine 26.96 mg/dL; Total Protein Urine Random < 7 mg/dL (<12)
[2023-07-05 08:24] LABS: Erythrocyte Sedimentation Rate 4 MM/HR (0-20)
[2023-07-09 17:19] LABS: Complement C3 53 mg/dL (83-193)
[2023-07-11 08:04] LABS: Anti DNA DS Antibody <1 IU/mL
== END 2023-07-05 05:59 | disposition home or self-care (01) ==
LOC: HO.LAB 05:58
PROVIDERS: PCP Internal Medicine; Visit Provider Student in an Organized Health Care Education/Training Program
DX: M32.9 Systemic lupus erythematosus, unspecified (principal); M32.19 Other organ or system involvement in systemic lupus erythematosus
CPT/HCPCS: 36415; 80053; 81001; 82570; 84156; 85025; 85652; 86140; 86160; 86225

== ENCOUNTER 2023-07-08 09:30 | Outpatient (AMB) | payer OTHER, SELFPAY ==
--- NOTE | 2023-07-08 09:34 | MHC.OFFVIS ---
Vital Signs 07/08/23 09:38 Height 5 ft 3 in Weight 132 lb 4.438 oz BMI 23.4 BP 120/70 Blood Pressure Location Rt brachial Position Sitting Pulse 80 Pulse Source Pulse Oximeter Pulse Oximetry (%) 98 Oxygen Delivery Method Room Air Intake Visit Reasons: SLE Intake Note: Patient last seen 04/09/23 by Shoaib, presents today for SLE follow up. 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 Accompanied by: Self / Same As Patient Allergies gabapentin [GABAPENTIN] Allergy (Intermediate, Verified 07/08/23 09:34) GI UPSET acetaminophen [From Vicodin] Allergy (Unknown, Verified 07/08/23 09:34) Pruritis lorazepam [Ativan] Allergy (Unknown, Verified 07/08/23 09:34) Unknown hydrocodone [From VICODIN] Adverse Reaction (Mild, Verified 07/08/23 09:34) GI UPSET Medication List - Last Reconciled 07/08/23 by Morgan Lora MD acetaminophen (Tylenol) 650 mg PO Q6H PRN amlodipine 2.5 mg PO DAILY 90 days betamethasone dipropionate 0.05% topical buspirone 7.5 mg PO BID cholecalciferol (vitamin D3) 25 mcg PO DAILY 90 days cyclobenzaprine 10 mg PO TID PRN 30 days hydrocortisone valerate 0.2% topical BID hydroxychloroquine 300 mg PO DAILY levothyroxine 100 mcg PO QAM 90 days omeprazole 20 mg PO DAILY valacyclovir 1,000 mg PO BID HPI Comments Details: 63year-old female with SLE returns for follow-up. She remains on hydroxychloroquine 300 mg daily. She states that recently while doing her 2 mi walks she has some difficulty due to minimal shortness of breath and bilateral deep bone pain in her legs, she gets intermittent itching and tingling and numbness in her skin. Denies any rashes. Denies any wheezing or cough. She has gained 3-4 lb unintentionally over the last few months. She states that she gets seasonal allergies. She gets nasal congestion and intermittent discharge coming down the back of her throat. Last visit 62-year-old female with SLE returns for follow-up. She takes hydroxychloroquine 200 mg daily. She forgets to take the extra half pill. Over the last 6 months she has been doing fairly well. Except 3 weeks ago she had a few episodes of brain fog and fatigue. A few episodes of headaches and extreme sun light sensitivity. States that all the rashes on her face have resolved except for the 1 on her right protestant. Initial history: 61-year-old female with a past medical history of thyroid disease, chronic fatigue syndrome, fibromyalgia presents for evaluation of a positive ALEJANDRINA . She was evaluated last year by Dr. Stanley with comprehensive serology and he was negative for autoimmune rheumatic disease. Three months ago she developed rashes on her face and neck that were itchy, she was evaluated by geriatric care manager Dr. Cortez who told her she has lupus. She was prescribed topical steroid creams with improvement of her skin rash. She continues to have skin rashes on her face and neck. Her repeat ALEJANDRINA testing is positive which prompted this visit. She recently went to urgent care for a swollen neck lymph node, she was prescribed prednisone 20 mg for 5 days with almost complete resolution of her symptoms. While on the prednisone she had about 30% relief of her joint pain. Otherwise she continues to have same symptoms of fatigue, and generalized aches of her muscles and joints. She smokes marijuana at night which helps her fall asleep but she has difficulty staying asleep. For her fibromyalgia she failed Cymbalta and 5 or 6 different antidepressants as she could not tolerate them. She also failed PT/OT, she tries to eat an anti inflammatory diet. Currently she is taking care of her 93-year-old father. Patient denies Raynaud's, oral or nasal ulcers, DVT or PE. [facility] Medical History Osteopenia Mixed hyperlipidemia Breast calcification, right Cutaneous lupus erythematosus Insomnia Cervical spinal stenosis Fibromyalgia GERD without esophagitis Vitamin D deficiency Tinea corporis Acquired hypothyroidism Depression Anxiety Lumbar degenerative disc disease Right shoulder pain Myalgia Arthralgia Benign essential hypertension Pure hypercholesterolemia Surgical History Hx of total ankle replacement Hx of endoscopy History of colonoscopy (~10/01/13) History of total ankle replacement Family History Father Hypertension Mother Stroke Cancer Diabetes Rheumatoid arthritis SLE (systemic lupus erythematosus) Paternal Grandmother Colon cancer Other Mental health problem Substance abuse Social History Household Members: Children Household Members Other:: Son Housing: Apartment Alcohol intake: current Alcohol intake frequency: does not drink Patient Tobacco Use Status: Former Tobacco user Quit Date: 2018 Tobacco use type: Cigarette e-Cigarette/Vaping Use: Never Used Second Hand Smoke Exposure: Yes Substance Use Type: Marijuana service: No Current occupational status: retired and disabled Sexual orientation: Straight/Heterosexual Gender identity: Female Cognitive needs: No Hearing needs: No Vision needs: Yes Review of Systems Musc Reports myalgias and Denies joint swelling Skin/Breast Reports alopecia, Denies lesions and Denies rash Physical Exam Vital Signs: Last Vital Signs Pulse 80 07/08/23 09:38 BP 120/70 07/08/23 09:38 Pulse Ox 98 07/08/23 09:38 Oxygen Delivery Method Room Air 07/08/23 09:38 BMI result Body Mass Index 23.4 Const General: cooperative and healthy appearing Nutritional Appearance: average body habitus Orientation/consciousness: patient oriented x3 Limitations: no limitations HEENT Head: Yes normocephalic and Yes atraumatic Resp Effort & Inspection: normal respiratory effort and able to speak in complete sentences Auscultation: clear to auscultation bilaterally Cardio Rate: regular rate Rhythm: regular rhythm Heart sounds: S1 normal heart sound present and S2 normal heart sound present GI Inspection: No distended Palpation (GI): Soft to palpation and nontender Skin Other: No active lupus rashes today Neuro General: patient oriented x3 Extrem Other: No synovitis Normal nailfold capillaroscopy Some osteoarthritic changes of her hands Assessment & Plan Assessment & Plan (1) SLE (systemic lupus erythematosus): Comment: dx 04/19 (+ ALEJANDRINA, cutaneous SLE, fatigue, low C3 & C4 when in a flare) HCQ started 04/19 effective Code(s): M32.9 - Systemic lupus erythematosus, unspecified Category: Medical Qualifiers: Systemic lupus erythematosus type: unspecified Systemic lupus erythematosus organ involvement: other Qualified Code(s): M32.19 - Other organ or system involvement in systemic lupus erythematosus Plan: This is a 63-year-old female with mild SLE (cutaneous lupus, fatigue, ALEJANDRINA 1-160 speckled,?low C3 & C4 when in a flare)?who presents for follow-up. Doing quite well on hydroxychloroquine 300 mg daily. Continue current meds Labs before next visit in 4 months (2) Encounter for monitoring of hydroxychloroquine therapy: Comment: Eye exam 05/2022 OK Code(s): Z51.81 - Encounter for therapeutic drug level monitoring; Z79.899 - Other intermodal customer service (current) drug therapy Category: Medical Plan: Patient states that she was evaluated by Dr. Lin over the last few weeks and cleared to continue with hydroxychloroquine. Will request records (3) Seasonal allergies: Code(s): J30.2 - Other seasonal allergic rhinitis Category: Medical Plan: Minimal symptoms with intermittent nasal congestion and postnasal drip. Mild eosinophilia. Prescribed Flonase to use as needed Plan I spent 26 minutes reviewing patient's chart, evaluating patient, ordering diagnostic workup, counseling patient and documenting in the chart Orders: Orders Anti DNA DS Antibody 4 Months M32. - Other organ or system involvement in systemic lupus erythematosus Complement C3 4 Months M32.19 - Other organ or system involvement in systemic lupus erythematosus UA w Microscopic 4 Months M32. - Other organ or system involvement in systemic lupus erythematosus Complete Blood Count Auto Diff 4 Months M32.19 - Other organ or system involvement in systemic lupus erythematosus Complement C4 4 Months M32.19 - Other organ or system involvement in systemic lupus erythematosus C Reactive Protein 4 Months M32.19 - Other organ or system involvement in systemic lupus erythematosus Erythrocyte Sedimentation Rate 4 Months M32.19 - Other organ or system involvement in systemic lupus erythematosus Protein Creatinine Ratio, Ur 4 Months M32.19 - Other organ or system involvement in systemic lupus erythematosus Comprehensive Met. Panel 4 Months M32.19 - Other organ or system involvement in systemic lupus erythematosus Medications: New fluticasone propionate 50 mcg/actuation (Flonase Allergy Relief) administer into each nostril 1 spray intranasal BID PRN 16 grams 0RF nasal congestion Coding Level of Care Code Est Pt Level 4 (03019) Diagnoses Systemic lupus erythematosus with other organ involvement, unspecified SLE type M32.19 Systemic lupus erythematosus type: unspecified Systemic lupus erythematosus organ involvement: other Encounter for monitoring of hydroxychloroquine therapy Z51.81; Z79.899 Seasonal allergies J30.2
[2023-07-08 09:38] VITALS: BP 120/70; PULSE 80; O2SAT 98; BMI 23.4
== END 2023-07-08 09:53 | disposition home or self-care (01) ==
PROVIDERS: PCP Internal Medicine; Visit Provider Student in an Organized Health Care Education/Training Program
DX: M32.19 Other organ or system involvement in systemic lupus erythematosus (principal); Z51.81 Encounter for therapeutic drug level monitoring; Z79.899 Other long term (current) drug therapy; J30.2 Other seasonal allergic rhinitis
CPT/HCPCS: 99214

== ENCOUNTER → 2023-07-08 09:30 | Outpatient (BNVA) | payer OTHER, SELFPAY | PROVIDERS: PCP Internal Medicine; Visit Provider Student in an Organized Health Care Education/Training Program | DX: M32.19 Other organ or system involvement in systemic lupus erythematosus (principal); Z51.81 Encounter for therapeutic drug level monitoring; Z79.899 Other long term (current) drug therapy; J30.2 Other seasonal allergic rhinitis | CPT/HCPCS: 99212 ==

== ENCOUNTER 2023-07-09 08:16 | Outpatient (REF) | payer OTHER, SELFPAY ==
--- NOTE | ~2023-07-09 | CT_ITS ---
EXAMINATION: CT LOW-DOSE SCREENING CHEST WITHOUT CONTRAST CLINICAL INFORMATION: Personal history of nicotine dependence. The patient has a 45 pack-year history of smoking, having quit 1 year ago. COMPARISON: CT chest 03/08/2023: There is an 8 mm nodular density seen in the superior segment of the right lower lobe with some other smaller micronodules. X-ray chest 04/18/2019. TECHNIQUE: Multidetector volumetric CT imaging of the chest is performed on a Siemens SOMATOM Definition scanner without contrast using low dose technique. Additional 2D coronal and sagittal reformatted images and axial 3D maximum intensity projection (MIP) images are generated on the CT workstation. This CT examination was performed using dose optimization techniques as appropriate, variously including the following: *Automated exposure control *Adjustment of mA and/or kV according to patient size (this includes techniques or standardized protocols for targeted exams where dose is matched to indication/reason for exam; i.e. extremities or head) *Use of iterative reconstruction technique TOTAL EXAM DLP: 40 mGy-cm CTDIvol: 1.24 mGy FINDINGS: PULMONARY NODULES: The previously seen 8 mm size right lower lobe pulmonary nodule on the patient's baseline exam from 03/08/2023 is completely unchanged (5:252 compare prior 5:227). Previously seen 3 mm nodule in the right upper lobe medially has decreased in size to about 2 mm (5:186 compare prior 5:162). No new, increasing size or worrisome pulmonary nodule is seen. LUNGS: Lungs bilaterally symmetrically expanded. Again seen are minimal emphysematous changes along with mild bronchial thickening No effusion or pneumothorax. Central airways patent. MEDIASTINUM: No mediastinal, hilar or axillary adenopathy or free fluid collection. CORONARY ARTERY CALCIFICATION: Minimal. THYROID GLAND: Unremarkable to the extent seen. CARDIOVASCULAR STRUCTURES: Aortic and heart size normal. No pericardial effusion. CHEST WALL/AXILLA: Unremarkable. UPPER ABDOMEN: Included portions of the solid organs in the upper abdomen unremarkable on noncontrast imaging. OSSEOUS STRUCTURES: No suspicious focal findings. CT/CT lung screen follow up IMPRESSION: An 8 mm pulmonary nodule, unchanged over 4 months. ASSESSMENT: 1. Lung-RADS Category 2: Benign appearance or behavior of nodules. N/A 2. Lung-RADS Category S: Negative. There are no clinically significant or potentially clinically significant findings not related to the lungs requiring urgent additional evaluation. RECOMMENDATION: Continued routine annual low-dose CT lung screening in 1 year is recommended. An order for CT CHEST LOW DOSE CANCER SCREENING ([id number]) can be placed.
== END 2023-07-09 08:17 | disposition home or self-care (01) ==
LOC: HO.CT 08:16
PROVIDERS: PCP Internal Medicine; Visit Provider Nurse Practitioner Family
DX: R91.1 Solitary pulmonary nodule (principal); J43.9 Emphysema, unspecified; Z87.891 Personal history of nicotine dependence
CPT/HCPCS: 71250

== ENCOUNTER → 2023-07-23 14:17 | Outpatient (RCR) | payer OTHER, SELFPAY | END | disposition home or self-care (01) | LOC: HO.OT 12-08 09:25 | PROVIDERS: PCP Internal Medicine; Visit Provider Physician Assistant | DX: M25.811 Other specified joint disorders, right shoulder (principal) | CPT/HCPCS: 97110; 97165 ==

== ENCOUNTER 2023-08-01 13:24 | Outpatient (AMB) | payer OTHER, SELFPAY ==
[2023-08-01 13:25] VITALS: BP 112/68; PULSE 80; BMI 23.4
--- NOTE | 2023-08-01 13:25 | MHC.PC.OV ---
Vital Signs 08/01/23 13:25 Height 5 ft 3 in Weight 132 lb 0.6 oz BMI 23.4 BP 112/68 Blood Pressure Location Lt brachial Position Sitting Pulse 80 Pulse Source Pulse Oximeter Oxygen Delivery Method Room Air Intake Visit Reasons: CT scan results/ right upper back pain Car Servicer Required: No Allergies gabapentin [GABAPENTIN] Allergy (Intermediate, Verified 09/13/23 13:08) GI UPSET acetaminophen [From Vicodin] Allergy (Unknown, Verified 09/13/23 13:08) Pruritis lorazepam [Ativan] Allergy (Unknown, Verified 09/13/23 13:08) Unknown hydrocodone [From VICODIN] Adverse Reaction (Mild, Verified 09/13/23 13:08) GI UPSET Medication List - Last Reconciled 08/01/23 by Raleigh Riddle MD acetaminophen (Tylenol) 650 mg PO Q6H PRN amlodipine 2.5 mg PO DAILY 90 days betamethasone dipropionate 0.05% topical buspirone 7.5 mg PO BID cholecalciferol (vitamin D3) 25 mcg PO DAILY 90 days cyclobenzaprine 10 mg PO TID PRN 30 days hydrocortisone valerate 0.2% topical BID hydroxychloroquine 300 mg PO DAILY levothyroxine 100 mcg PO QAM 90 days omeprazole 20 mg PO DAILY valacyclovir 1,000 mg PO BID Tobacco use date assessed: 08/01/23 Dental Screening Dental Screen Date: 04/29/[address] scan results/ right upper back pain HPI Details Patient comes in today complaining of increased fatigue and overall weakness lately States that she has also been experiencing recurrent pain over her the middle of the right side of back for a couple of weeks now but feels that the pain has been slowly decreasing recently Does not recall any recent injury or trauma to her back Adds that she had a CT lung screening done at [facility] a couple of weeks ago and would like to know if we received her results or not She denies any headaches or dizziness Denies any chest pains, no increased SOB No nausea/vomiting, no abdominal pain No change in bowel habits noted [facility] Medical History Osteopenia Mixed hyperlipidemia Breast calcification, right Cutaneous lupus erythematosus Insomnia Cervical spinal stenosis Fibromyalgia GERD without esophagitis Vitamin D deficiency Tinea corporis Acquired hypothyroidism Depression Anxiety Lumbar degenerative disc disease Right shoulder pain Myalgia Arthralgia Benign essential hypertension Pure hypercholesterolemia Surgical History Hx of total ankle replacement Hx of endoscopy History of colonoscopy (~10/01/13) History of total ankle replacement Family History Father Hypertension Mother Stroke Cancer Diabetes Rheumatoid arthritis SLE (systemic lupus erythematosus) Paternal Grandmother Colon cancer Other Mental health problem Substance abuse Social History Household Members: Children Household Members Other:: Son Housing: Apartment Alcohol intake: current Alcohol intake frequency: does not drink Patient Tobacco Use Status: Former Tobacco user Tobacco use type: Cigarette e-Cigarette/Vaping Use: Never Used Second Hand Smoke Exposure: Yes Substance Use Type: Marijuana service: No Current occupational status: retired and disabled Sexual orientation: Straight/Heterosexual Gender identity: Female Cognitive needs: No Hearing needs: No Vision needs: Yes Questionnaire Thrive Questionnaire Date Thrive assessed: 04/29/23 I am a: Patient What is your living situation today?: I have a steady place to live Within the past 12 months, did the food you bought not last and you didn't have the money to get more?: Never true Within the past 12 months, did you worry whether your food would run out before you got money to buy more?: Never true Do you have trouble paying for medicines?: No Do you have trouble getting transportation to medical appointments?: No Do you have trouble paying your heating and electricity bill?: No Do you have trouble taking care of your child, family member or friend?: No Do you have trouble with day-to-day activities such as bathing, preparing meals, shopping, managing finances, etc.?: No Are you currently unemployed and looking for a job?: No Are you interested in more education?: No Please select the resources that you would like help with: None Currently or been in a relationship where the following occur: no concerns reported THRIVE Score: 0 AUDIT C Alcohol Use Questionnaire (AUDIT-C) 1. How often do you have a drink containing alcohol?: Never 3. How often do you have six or more drinks on one occasion?: Never Total Score: 0 Score Reviewed/Action Taken: Yes MARGARITO-7 AMB Questionnaire MARGARITO-7 Date MARGARITO - 7 assessed: 04/29/23 Source: Developed by Drs. Michael Yao, Francine Godinez, Sriram Knott and colleagues, with an educational pramod from [employer] Review of Systems Const Denies chills, Reports fatigue (increased), Denies fever(s), Denies headache(s) and Reports weakness ENT Denies dysphagia, Denies dizziness, Reports dry mouth, Denies otalgia, Denies headache(s), Denies neck pain, Denies odynophagia and Denies sore throat Card Reports chest pain (increased over the right lower chest / ribs lately), Denies chest pain with activity, Denies rapid heart rate, Denies irregular heart rhythm, Denies palpitations and Reports dyspnea on exertion (chronic but increasing recently) Resp Denies chest congestion, Reports cough (on and off - coughs up thick grayish phlegm at times), Denies pain with cough, Reports dyspnea on exertion (chronic but increasing recently) and Denies wheezing GI Denies abdominal pain, Denies constipation, Denies dysphagia, Denies heartburn, Denies diarrhea, Denies nausea, Denies odynophagia and Denies vomiting Denies hematuria, Denies urinary frequency, Denies dysuria (but reports (+) mild burning sensation at times), Denies urinary incontinence and Denies urinary urgency Musc Reports back pain (over the mid to lower back and lately on the right midthoracic area), Reports myalgias (diffuse), Reports arthralgias (on and off, involving multiple joints and increased lately-see HPI), Denies neck pain and Reports stiffness Skin/Breast Denies rash Neuro Denies dizziness, Denies headache(s), Denies paresthesias and Reports weakness Psych Denies anxiety and Denies depression Endo Reports fatigue (increased) and Denies palpitations Torres/Lymph Denies easy bruising Aller/Immun Denies wheezing Physical exam (Primary Care) Vital Signs: Last Vital Signs Pulse 80 08/01/23 13:25 BP 112/68 08/01/23 13:25 Oxygen Delivery Method Room Air 08/01/23 13:25 BMI result Body Mass Index 23.4 Tobacco/Smoking Status: Tobacco use Status Tobacco use date assessed 08/01/23 08/01/23 13:26 Patient Tobacco Use Status Former Tobacco user 08/01/23 13:26 Tobacco use type Cigarette 08/01/23 13:26 e-Cigarette/Vaping Use Never Used 08/01/23 13:26 Thrive Assessment: Date of Thrive Assessment Date Thrive assessed 04/29/23 08/01/23 13:26 Currently or been in a relationship where the following occur: no concerns reported Const General: no acute distress and alert HENMT Throat: Yes posterior oropharynx normal and Yes tonsils normal (no TP congestion) Neck Neck: Yes no lymphadenopathy and Yes supple Thyroid: Thyroid normal Resp Other: NO reproducible tenderness on deep palpation over the right lower ribs anteriorly although patient insists that the pain is there but deeper , possibly in her lungs Auscultation: clear to auscultation bilaterally, no rales and no wheezes Cardio Rate: regular rate Rhythm: regular rhythm Heart sounds: no murmurs GI Palpation (GI): Soft to palpation and nontender Auscultation: normal bowel sounds General: Yes no CVA tenderness Back/Spine/Pelvis Back: no CVA tenderness Cervical Spine: cervical muscular tenderness (mild) and Cervical spine tenderness Thoracic/Lumbar Spine: paraspinal muscle tenderness bilaterally in the upper thoracic, in the mid thoracic, in the lower thoracic, in the upper lumbar, in the mid lumbar and in the lower lumbar and lumbar spinal tenderness Skin Rashes: no rashes Extrem Other: (+) tenderness over multiple joints bilaterally, including shoulders, elbows, hands and knees General: Yes no clubbing, cyanosis or edema Results Reviewed Results Reviewed: Laboratory Tests 07/05/23 06:12 WBC 8.8 Hgb 13.5 Hct 40.7 Plt Count 215 ESR 4 Sodium 138 Potassium 4.4 Creatinine 0.78 Estimated GFR > 60 Random Glucose 83 Calcium 9.6 AST 26 ALT 30 C-Reactive Protein < 0.10 Assessment and Plan Assessment & Plan (1) Weakness: Code(s): R53.1 - Weakness Plan: Will refer her to neurology for further evaluation and management, per request (2) Right-sided thoracic back pain: Code(s): M54.6 - Pain in thoracic spine Qualifiers: Chronicity: unspecified Qualified Code(s): M54.6 - Pain in thoracic spine Plan: Discussed with patient that this is likely musculoskeletal pain radiating from her thoracic spine or due to muscle strain Her recent lung CT done a couple of weeks ago mentioned no suspicious focal findings on her thoracic spine at the time Advised that if her right-sided thoracic back pain persists or worsens, will then consider additional imaging studies for further evaluation Plan Follow up as scheduled next month Orders: Referrals Neurology Referral R53.1 - Weakness, R53.83 - Other fatigue Coding Level of Care Code Est Pt Level 3 (92742) Diagnoses Weakness R53.1 Right-sided thoracic back pain, unspecified chronicity M54.6 Chronicity: unspecified
== END 2023-08-01 15:13 | disposition home or self-care (01) ==
PROVIDERS: PCP Internal Medicine; Visit Provider Internal Medicine
DX: R53.1 Weakness (principal); M54.6 Pain in thoracic spine
CPT/HCPCS: 99213

== ENCOUNTER 2023-09-02 09:11 | Outpatient (AMB) | payer OTHER, SELFPAY ==
--- NOTE | 2023-09-02 09:19 | A.OFFPC_ITS ---
Vital Signs 09/02/23 09:21 Height 5 ft 3 in Weight 131 lb 3 oz BMI 23.2 BP 122/62 Blood Pressure Location Lt brachial Position Sitting Pulse 78 Pulse Source Pulse Oximeter Pulse Oximetry (%) 99 Oxygen Delivery Method Room Air Intake Visit Reasons: 4 Month F/U Intake Note: Patient is here to follow up on HLD, HTN, Fibromyalgia. Barrelhead Inspector Required: No Vp Clinical Research: Not Required per policy Accompanied by: Self / Same As Patient Allergies gabapentin [GABAPENTIN] Allergy (Intermediate, Verified 09/02/23 09:21) GI UPSET acetaminophen [From Vicodin] Allergy (Unknown, Verified 09/02/23 09:21) Pruritis lorazepam [Ativan] Allergy (Unknown, Verified 09/02/23 09:21) Unknown hydrocodone [From VICODIN] Adverse Reaction (Mild, Verified 09/02/23 09:21) GI UPSET Tobacco use date assessed: 09/02/23 Dental Screening Dental Screen Date: 04/29/23 HPI 4 Month F/U HPI Details Patient comes in today for her follow up visit States that she is presently experiencing increased aching all over, including in her hands, neck, shoulder, lower back and over multiple joints She denies any recent injury or trauma Relates (+) fatigue but she denies any fever, headaches or dizziness lately Denies any chest pains, no increased SOB No nausea/vomiting, no abdominal pain No change in bowel habits noted She had some follow up labs done a couple of months ago but thinks that these were non-fasting labs - to discuss her results [facility] Medical History Osteopenia Mixed hyperlipidemia Breast calcification, right Cutaneous lupus erythematosus Insomnia Cervical spinal stenosis Fibromyalgia GERD without esophagitis Vitamin D deficiency Tinea corporis Acquired hypothyroidism Depression Anxiety Lumbar degenerative disc disease Right shoulder pain Myalgia Arthralgia Benign essential hypertension Pure hypercholesterolemia Surgical History Hx of total ankle replacement Hx of endoscopy History of colonoscopy (~10/01/13) History of total ankle replacement Family History Father Hypertension Mother Stroke Cancer Diabetes Rheumatoid arthritis SLE (systemic lupus erythematosus) Paternal Grandmother Colon cancer Other Mental health problem Substance abuse Social History Household Members: Children Household Members Other:: Son Housing: Apartment Alcohol intake: current Alcohol intake frequency: does not drink Patient Tobacco Use Status: Former Tobacco user Tobacco use type: Cigarette e-Cigarette/Vaping Use: Never Used Second Hand Smoke Exposure: Yes Substance Use Type: Marijuana service: No Current occupational status: retired and disabled Sexual orientation: Straight/Heterosexual Gender identity: Female Cognitive needs: No Hearing needs: No Vision needs: Yes Questionnaire Thrive Questionnaire Date Thrive assessed: 04/29/23 MARGARITO-7 AMB Questionnaire MARGARITO-7 Date MARGARITO - 7 assessed: 04/29/23 Source: Developed by Drs. Michael Yao, Francine Godinez, Sriram Knott and colleagues, with an educational pramod from [employer]. Review of Systems Const Denies chills, Reports fatigue (increased), Denies fever(s) and Denies headache(s) ENT Denies dysphagia, Denies dizziness, Reports dry mouth, Denies otalgia, Denies headache(s), Denies neck pain, Denies odynophagia and Denies sore throat Card Denies chest pain, Denies rapid heart rate, Denies irregular heart rhythm, Denies palpitations and Reports dyspnea on exertion (mild, chronic) Resp Denies chest congestion, Reports cough (occasional), Denies pain with cough, Reports dyspnea on exertion (mild, chronic) and Denies wheezing GI Denies abdominal pain, Denies constipation, Denies dysphagia, Denies heartburn, Denies diarrhea, Denies nausea, Denies odynophagia and Denies vomiting Denies hematuria, Denies urinary frequency, Denies dysuria (but reports (+) mild burning sensation at times), Denies urinary incontinence and Denies urinary urgency Musc Reports back pain (over the mid to lower back), Reports myalgias (diffuse), Reports arthralgias (on and off, involving multiple joints and increased lately- see HPI), Denies neck pain and Reports stiffness Skin/Breast Denies rash Neuro Denies dizziness, Denies headache(s) and Denies paresthesias Psych Denies anxiety and Denies depression Endo Reports fatigue (increased) and Denies palpitations Torres/Lymph Denies easy bruising Aller/Immun Denies wheezing Physical exam (Primary Care) Vital Signs: Last Vital Signs Pulse 78 09/02/23 09:21 BP 122/62 09/02/23 09:21 Pulse Ox 99 09/02/23 09:21 Oxygen Delivery Method Room Air 09/02/23 09:21 BMI result Body Mass Index 23.2 Tobacco/Smoking Status: Tobacco use Status Tobacco use date assessed 09/02/23 09/02/23 09:24 Patient Tobacco Use Status Former Tobacco user 09/02/23 09:24 Tobacco use type Cigarette 09/02/23 09:24 e-Cigarette/Vaping Use Never Used 09/02/23 09:24 Thrive Assessment: Date of Thrive Assessment Date Thrive assessed 04/29/23 09/02/23 09:24 Const General: no acute distress, alert and tired appearing HENMT Ears: TM's normal bilaterally and EAC's normal Throat: Yes posterior oropharynx normal and Yes tonsils normal (no TP congestion) Neck Neck: Yes no lymphadenopathy and Yes supple Thyroid: Thyroid normal Resp Auscultation: clear to auscultation bilaterally, no rales and no wheezes Cardio Rate: regular rate Rhythm: regular rhythm Heart sounds: no murmurs GI Palpation (GI): Soft to palpation and nontender Auscultation: normal bowel sounds General: Yes no CVA tenderness Back/Spine/Pelvis Back: no CVA tenderness Cervical Spine: cervical muscular tenderness (mild) and Cervical spine tenderness Thoracic/Lumbar Spine: paraspinal muscle tenderness bilaterally in the upper thoracic, in the upper lumbar, in the mid lumbar and in the lower lumbar and lumbar spinal tenderness Skin Rashes: no rashes Extrem Other: (+) tenderness over multiple joints bilaterally, including shoulders, elbows, hands and knees General: Yes no clubbing, cyanosis or edema Results Reviewed Results Reviewed: Laboratory Tests 07/05/23 07/05/23 06:10 06:12 WBC 8.8 Hgb 13.5 Hct 40.7 Plt Count 215 Sodium 138 Potassium 4.4 Creatinine 0.78 Estimated GFR > 60 Random Glucose 83 Calcium 9.6 AST 26 ALT 30 Ur Specific [place] <= 1.005 Urine Protein Negative Urine Glucose (UA) Negative Urine Blood Negative Urine Nitrite Negative Ur Leukocyte Esterase Negative Assessment and Plan Assessment & Plan (1) Cutaneous lupus erythematosus: Code(s): L93.2 - Other local lupus erythematosus Plan: Continue Hydroxychloroquine 300 mg QD Follow up with rheumatology as scheduled Have emphasized to patient again the importance of avoidance of sun exposure (2) Fibromyalgia: Code(s): M79.7 - Fibromyalgia Plan: Have advised patient that her recent increasing diffuse pain is likely a combination of her polyarthralgia and fibromyalgia Patient is again encouraged to continue to stay active and exercise regularly She has been referred to physical therapy in the past when needed with (+) slight improvement of her symptoms Patient also continues to follow up with [facility] for pain management and trigger point injections She follows up also with [facility] (Dr. Rodriguez) regularly - MS has been previously ruled out in her case Continue Cyclobenzaprine 5 mg TID PRN (3) Arthralgia: Code(s): M25.50 - Pain in unspecified joint Qualifiers: Joint pain location: unspecified Qualified Code(s): M25.50 - Pain in unspecified joint Plan: Follow up with rheumatology as scheduled - has been diagnosed with polyarthralgia in addition to her fibromyalgia and her cutaneous lupus (4) Fatigue: Code(s): R53.83 - Other fatigue Qualifiers: Fatigue type: unspecified Qualified Code(s): R53.83 - Other fatigue Plan: Discussed again that this is likely multifactorial, including related to her fibromyalgia Recent labs/serologies ordered by rheumatology came back normal although her C3 and C4 levels were low - discussed that we do see low complement levels in lupus but have advised her that this does increase her risks of infections so she should be aware of this Have advised to consider referral to Sleep Medicine if her increased fatigue persists, although patient feels that she sleeps well at night Is advised that sleeping well at night and Sleep Apnea are 2 completely different issues and one does not necessarily have anything to do with the other (5) Exertional dyspnea: Code(s): R06.09 - Other forms of dyspnea Plan: This is most likely multifactorial, including physical deconditioning PFTs done at [facility] in 2017 and 2019 both came back grossly normal A myocardial perfusion study done in mid-2019 also came out normal but with her reported increasing SOB again lately, she was sent for repeat PFTs for further evaluation but this does not appear to have been scheduled yet - will try to follow up on this (6) Lung bullae: Code(s): J43.9 - Emphysema, unspecified Plan: She has a right lower lobe pulmonary cyst or bulla measuring about 1.1 cm seen incidentally on her abdominal / pelvic CT done at [facility] back in 01/2016 She is concerned as to why there was no mention of this in her recent low dose CT lung screening, which revealed an 8 mm nodular density seen in the superior segment of the right lower lobe that they say is likely benign, as well as (+) minimal changes of emphysema. A repeat low dose CT lung screening was recommended in 6 months Patient was sent for a chest CT to further evaluate the pulmonary bulla seen on her right lower lobe in 2016 a few months ago but this has yet to be scheduled (7) Mixed hyperlipidemia: Code(s): E78.2 - Mixed hyperlipidemia Plan: Reinforced low cholesterol diet Her fasting lipids done back in March 2023 were within acceptable range (8) Benign essential hypertension: Code(s): I10 - Essential (primary) hypertension Plan: Reinforced low sodium diet - goal is systolic BP of 120 mm or less Continue Amlodipine 2.5 mg QD (9) Acquired hypothyroidism: Code(s): E03.9 - Hypothyroidism, unspecified Plan: Continue Levothyroxine 100 mcg QD Will have her recheck her TFTs in a couple of months when she goes for labs ordered previously by rheumatology (10) Cervical spinal stenosis: Comment: (+) cervical radiculopathy, worse on the left side Code(s): M48.02 - Spinal stenosis, cervical region Plan: Cervical spine imaging done a couple of years ago revealed (+) neuroforaminal stenosis, most pronounced at C6-C7 and greater on the left than the right side Follow-up with [facility] as scheduled for pain management (11) Lumbar degenerative disc disease: Code(s): M51.36 - Other intervertebral disc degeneration, lumbar region Plan: Reinforced activity and weight lifting restrictions Lumbar spine MRI done at [facility] on 08/22/2019 showed a right-sided foraminal disc osteophyte protrusion at the L4-L5 level that contacts the right L4 nerve root as well as multilevel degenerative changes She was referred to and seen by Neurosurgery and was advised that there is no surgical indication at the time; she was then referred to [facility] who recommended PT and OT only as needed Follow up with [facility] as scheduled (12) Osteopenia: Code(s): M85.80 - Other specified disorders of bone density and structure, unspecified site Qualifiers: Osteopenia location: unspecified Qualified Code(s): M85.80 - Other specified disorders of bone density and structure, unspecified site Plan: Patient is advised that her BASELINE BMD done in January 2023 revealed (+) osteopenia based on the lowest T-score value of -1.4 in the lumbar spine; her T- score in the left femoral neck was also low at -1.2 Have recommended to patient to make sure she stays active and continue to try to exercise regularly, and to also contune taking OTC Vitamin D and Calcium daily Patient would like to hold off on Rx for Tx for now, and will recheck her BMD in 2 to 3 years for follow up (13) Headache: Code(s): R51.9 - Headache, unspecified Qualifiers: Headache type: unspecified Headache chronicity pattern: episodic headache Intractability: not intractable Qualified Code(s): R51.9 - Headache, unspecified Plan: States that her recent headaches are adequately relieved when she takes OTC Tylenol Have advised that based on her symptoms, her headaches appear consistent with migraine headaches Patient states that she will call if her headaches persist or get worse - may need to consider prophylactic Tx then Reinforced avoidance of any potential migraine triggers (14) Vitamin D deficiency: Code(s): E55.9 - Vitamin D deficiency, unspecified Plan: Continue Vitamin D3 1000 units QD (15) GERD without esophagitis: Code(s): K21.9 - Gastro-esophageal reflux disease without esophagitis Plan: Dietary restrictions reinforced Continue Omeprazole 20 mg QD (16) Insomnia: Code(s): G47.00 - Insomnia, unspecified Qualifiers: Insomnia type: unspecified Qualified Code(s): G47.00 - Insomnia, unspecified Plan: Sleep hygiene reinforced She used to take Zolpidem in the past but has been only taking OTC Melatonin 6 mg Q HS PRN for the past year or two with good results (17) Anxiety: Code(s): F41.9 - Anxiety disorder, unspecified Plan: Continue Lorazepam 0.5 mg QD PRN and Buspirone 7.5 mg QD (18) Depression: Code(s): F32.9 - Major depressive disorder, single episode, unspecified Qualifiers: Depression Type: major depressive disorder Major depression recurrence: recurrent Active/Remission status: currently active Major depression episode severity: unspecified Qualified Code(s): F33.9 - Major depressive disorder, recurrent, unspecified Plan: Patient could not tolerate multiple antidepressants in the past Has been doing a lot better since her TMS at [facility] that she completed back in 2019 Follow-up with Psychiatry as scheduled Plan Follow up in 4 months Orders: Orders Thyroid Stimulating Hormone 11/08/23 E03.9 - Hypothyroidism, unspecified Free T4 (Free Thyroxine) 11/08/23 E03.9 - Hypothyroidism, unspecified Coding Level of Care Code Est Pt Level 4 (62509) Diagnoses Cutaneous lupus erythematosus L93.2 Fibromyalgia M79.7 Arthralgia, unspecified joint M25.50 Joint pain location: unspecified Fatigue, unspecified type R53.83 Fatigue type: unspecified Exertional dyspnea R06.09 Lung bullae J43.9 Mixed hyperlipidemia E78.2 Benign essential hypertension I10 Acquired hypothyroidism E03.9 Cervical spinal stenosis M48.02 Lumbar degenerative disc disease M51.36 Osteopenia, unspecified location M85.80 Osteopenia location: unspecified Nonintractable episodic headache, unspecified headache type R51.9 Headache type: unspecified Headache chronicity pattern: episodic headache Intractability: not intractable Vitamin D deficiency E55.9 GERD without esophagitis K21.9 Insomnia, unspecified type G47.00 Insomnia type: unspecified Anxiety F41.9 Episode of recurrent major depressive disorder, unspecified depression episode severity F33.9 Depression Type: major depressive disorder Major depression recurrence: recurrent Active/Remission status: currently active Major depression episode severity: unspecified
[2023-09-02 09:21] VITALS: BP 122/62; PULSE 78; O2SAT 99; BMI 23.2
== END 2023-09-02 10:03 | disposition home or self-care (01) ==
PROVIDERS: PCP Internal Medicine; Visit Provider Internal Medicine
DX: J43.9 Emphysema, unspecified (principal); F33.9 Major depressive disorder, recurrent, unspecified; L93.2 Other local lupus erythematosus; M79.7 Fibromyalgia; M25.50 Pain in unspecified joint; R53.83 Other fatigue; R06.09 Other forms of dyspnea; E78.2 Mixed hyperlipidemia; I10 Essential (primary) hypertension; E03.9 Hypothyroidism, unspecified; M48.02 Spinal stenosis, cervical region; F41.9 Anxiety disorder, unspecified
CPT/HCPCS: 99214

== ENCOUNTER 2023-09-13 12:48 | Outpatient (AMB) | payer OTHER, SELFPAY ==
[2023-09-13 12:54] VITALS: BP 130/66; PULSE 73; O2SAT 98; BMI 23.1
--- NOTE | 2023-09-13 12:54 | MHC.PC.OV ---
Vital Signs 09/13/23 12:54 Height 5 ft 3 in Weight 130 lb 4 oz BMI 23.1 BP 130/66 Blood Pressure Location Lt brachial Position Sitting Pulse 73 Pulse Source Pulse Oximeter Pulse Oximetry (%) 98 Oxygen Delivery Method Room Air Intake Visit Reasons: Rt side pain Intake Note: Patient is here to follow up on right side rib area pain. Delivery Engineer Required: No Sand Digger: Not Required per policy Accompanied by: Self / Same As Patient Allergies gabapentin [GABAPENTIN] Allergy (Intermediate, Verified 09/13/23 13:08) GI UPSET acetaminophen [From Vicodin] Allergy (Unknown, Verified 09/13/23 13:08) Pruritis lorazepam [Ativan] Allergy (Unknown, Verified 09/13/23 13:08) Unknown hydrocodone [From VICODIN] Adverse Reaction (Mild, Verified 09/13/23 13:08) GI UPSET Medication List - Last Reconciled 09/13/23 by Raleigh Riddle MD acetaminophen (Tylenol) 650 mg PO Q6H PRN amlodipine 2.5 mg PO DAILY 90 days betamethasone dipropionate 0.05% topical buspirone 7.5 mg PO BID cholecalciferol (vitamin D3) 25 mcg PO DAILY 90 days cyclobenzaprine 10 mg PO TID PRN 30 days hydrocortisone valerate 0.2% topical BID hydroxychloroquine 300 mg PO DAILY levothyroxine 100 mcg PO QAM 90 days omeprazole 20 mg PO DAILY valacyclovir 1,000 mg PO BID Tobacco use date assessed: 09/13/23 Dental Screening Dental Screen Date: 04/29/23 HPI Rt side pain HPI Details Patient comes in today complaining of increased pain over her right thorax States that she has been experiencing on and off pain over her right side - over her right ribs under her right breast and over her right thoracic (back) area - for a while now but the pain over these places have increased lately and are now constant Adds that she gets very SOB even with minimal exertion lately, including climbing up her stairs at home, and states that her right-sided pain would often increase as well States that she has been coughing up thick, grayish phlegm at times lately and with her increasing ANGUIANO, is getting concerned about her lungs - would like to get a referral to see a lung specialist at [facility] She denies any fever; denies any headaches or dizziness Denies any exertional chest pains No nausea/vomiting, no abdominal pain No change in bowel habits noted PFSH Medical History Osteopenia Mixed hyperlipidemia Breast calcification, right Cutaneous lupus erythematosus Insomnia Cervical spinal stenosis Fibromyalgia GERD without esophagitis Vitamin D deficiency Tinea corporis Acquired hypothyroidism Depression Anxiety Lumbar degenerative disc disease Right shoulder pain Myalgia Arthralgia Benign essential hypertension Pure hypercholesterolemia Surgical History Hx of total ankle replacement Hx of endoscopy History of colonoscopy (~10/01/13) History of total ankle replacement Family History Father Hypertension Mother Stroke Cancer Diabetes Rheumatoid arthritis SLE (systemic lupus erythematosus) Paternal Grandmother Colon cancer Other Mental health problem Substance abuse Social History Household Members: Children Household Members Other:: Son Housing: Apartment Alcohol intake: current Alcohol intake frequency: does not drink Patient Tobacco Use Status: Former Tobacco user Tobacco use type: Cigarette e-Cigarette/Vaping Use: Never Used Second Hand Smoke Exposure: Yes Substance Use Type: Marijuana service: No Current occupational status: retired and disabled Sexual orientation: Straight/Heterosexual Gender identity: Female Cognitive needs: No Hearing needs: No Vision needs: Yes Questionnaire Thrive Questionnaire Date Thrive assessed: 04/29/23 MARGARITO-7 AMB Questionnaire MARGARITO-7 Date MARGARITO - 7 assessed: 04/29/23 Source: Developed by Drs. Michael Yao, Francine Godinez, Sriram Knott and colleagues, with an educational pramod from [employer]. Review of Systems Const Denies chills, Reports fatigue (increased), Denies fever(s) and Denies headache(s) ENT Denies dysphagia, Denies dizziness, Reports dry mouth, Denies otalgia, Denies headache(s), Denies neck pain, Denies odynophagia and Denies sore throat Card Reports chest pain (increased over the right lower chest / ribs lately), Denies chest pain with activity, Denies rapid heart rate, Denies irregular heart rhythm, Denies palpitations and Reports dyspnea on exertion (chronic but increasing recently) Resp Denies chest congestion, Reports cough (on and off - coughs up thick grayish phlegm at times), Denies pain with cough, Reports dyspnea on exertion (chronic but increasing recently) and Denies wheezing GI Denies abdominal pain, Denies constipation, Denies dysphagia, Denies heartburn, Denies diarrhea, Denies nausea, Denies odynophagia and Denies vomiting Denies hematuria, Denies urinary frequency, Denies dysuria (but reports (+) mild burning sensation at times), Denies urinary incontinence and Denies urinary urgency Musc Reports back pain (over the mid to lower back and lately on the right midthoracic area), Reports myalgias (diffuse), Reports arthralgias (on and off, involving multiple joints and increased lately-see HPI), Denies neck pain and Reports stiffness Skin/Breast Denies rash Neuro Denies dizziness, Denies headache(s) and Denies paresthesias Psych Denies anxiety and Denies depression Endo Reports fatigue (increased) and Denies palpitations Torres/Lymph Denies easy bruising Aller/Immun Denies wheezing Physical exam (Primary Care) Vital Signs: Last Vital Signs Pulse 73 09/13/23 12:54 BP 130/66 09/13/23 12:54 Pulse Ox 98 09/13/23 12:54 Oxygen Delivery Method Room Air 09/13/23 12:54 BMI result Body Mass Index 23.1 Tobacco/Smoking Status: Tobacco use Status Tobacco use date assessed 09/13/23 09/13/23 12:58 Patient Tobacco Use Status Former Tobacco user 09/13/23 12:58 Tobacco use type Cigarette 09/13/23 12:58 e-Cigarette/Vaping Use Never Used 09/13/23 12:58 Thrive Assessment: Date of Thrive Assessment Date Thrive assessed 04/29/23 09/13/23 12:58 Const General: no acute distress and alert HENMT Throat: Yes posterior oropharynx normal and Yes tonsils normal (no TP congestion) Neck Neck: Yes no lymphadenopathy and Yes supple Thyroid: Thyroid normal Resp Other: NO reproducible tenderness on deep palpation over the right lower ribs anteriorly although patient insists that the pain is there but deeper , possibly in her lungs Auscultation: clear to auscultation bilaterally, no rales and no wheezes Cardio Rate: regular rate Rhythm: regular rhythm Heart sounds: no murmurs GI Palpation (GI): Soft to palpation and nontender Auscultation: normal bowel sounds General: Yes no CVA tenderness Back/Spine/Pelvis Back: no CVA tenderness Cervical Spine: cervical muscular tenderness (mild) and Cervical spine tenderness Thoracic/Lumbar Spine: paraspinal muscle tenderness bilaterally in the upper thoracic, in the mid thoracic, in the lower thoracic, in the upper lumbar, in the mid lumbar and in the lower lumbar and lumbar spinal tenderness Skin Rashes: no rashes Extrem Other: (+) tenderness over multiple joints bilaterally, including shoulders, elbows, hands and knees General: Yes no clubbing, cyanosis or edema Assessment and Plan Assessment & Plan (1) Right-sided chest wall pain: Code(s): R07.89 - Other chest pain Plan: Will send her for right rib x-rays for further evaluation although it does not look like her pain is from her ribs as she did not have any reproducible tenderness elicited on exam of her right ribs (2) Right-sided thoracic back pain: Code(s): M54.6 - Pain in thoracic spine Qualifiers: Chronicity: unspecified Qualified Code(s): M54.6 - Pain in thoracic spine Plan: Will send her for thoracic spine x-rays for further evaluation Discussed that I suspect that these are likely referred pain or pain radiating from her thoracic spine Her recent lung CT in June 2023 mentioned no suspicious focal findings on her thoracic spine at the time (3) Dyspnea: Code(s): R06.00 - Dyspnea, unspecified Qualifiers: Dyspnea type: dyspnea on exertion Qualified Code(s): R06.09 - Other forms of dyspnea Plan: Patient felt that this has increased significantly lately and she now has trouble going up her stairs at home without having to sit down and catch her breath She also relates experiencing increased pain over her right lower chest and right thoracic back area when her dyspnea is aggravated Her recent lung CT did mention the presence of minimal emphysematous changes along with mild bronchial thickening seen on her scan Will send patient for chest x-rays for further evaluation Will also refer her to pulmonary (she requested to go to [facility]) for further evaluation and management of her recently increasing exertional dyspnea Plan To return as scheduled in December 2023 for her next annual physical examination Orders: Orders XR thoracic spine 3V Today M54.9 - Dorsalgia, unspecified XR chest 2V Today R06.00 - Dyspnea, unspecified XR ribs RT 2V Today R07.89 - Other chest pain Referrals Pulmonology Referral R06.00 - Dyspnea, unspecified Coding Level of Care Code Est Pt Level 4 (20090) Diagnoses Right-sided chest wall pain R07.89 Right-sided thoracic back pain, unspecified chronicity M54.6 Chronicity: unspecified Dyspnea on exertion R06.09 Dyspnea type: dyspnea on exertion
== END 2023-09-13 13:22 | disposition home or self-care (01) ==
LOC: HO.HMGH 12:48
PROVIDERS: PCP Internal Medicine; Visit Provider Internal Medicine
DX: R07.89 Other chest pain (principal); M54.6 Pain in thoracic spine; R06.09 Other forms of dyspnea
CPT/HCPCS: 99214

== ENCOUNTER 2023-09-13 13:26 | Outpatient (REF) | payer OTHER, SELFPAY ==
--- NOTE | ~2023-09-13 | XR_ITS ---
EXAMINATION: XR CHEST XR THORACIC SPINE XR RIGHT RIBS CLINICAL INFORMATION: Dyspnea, patient states pain radiates to anterior right ribs, back pain. COMPARISON: CT lung screening on 07/09/2023, chest x-rays of 07/24/2018 and 04/18/2019. TECHNIQUE: 2 views of the chest, 3 views of the thoracic spine, 3 views of the right ribs. FINDINGS: CHEST: Heart size is normal. There is no gross pneumothorax. No significant pleural effusion. A linear streaky opacity at the right lung base likely represents atelectasis/scar. THORACIC SPINE: Mild rightward curvature of the thoracic spine with mild multilevel degenerative changes. Degenerative changes on very limited images of the cervical spine could be evaluated with dedicated cervical spine radiographs. RIGHT RIBS: Advanced degenerative changes with hypertrophic change and deformity at the distal aspect of the right clavicle also present on prior chest radiograph. Radiopaque marker placed by technologist to indicate the area of concern as indicated by the patient along the inferior aspects of the right ribs. No displaced right rib fracture is appreciated. XR/XR chest 2V IMPRESSION: 1. Mild rightward curvature of the thoracic spine with mild multilevel degenerative changes. 2. No displaced right rib fracture is appreciated. 3. Advanced degenerative changes with hypertrophic change and deformity at the distal aspect of the right clavicle also present on prior chest radiograph. 4. CT scan could be considered for further evaluation based on the clinical assessment.
--- NOTE | ~2023-09-13 | XR_ITS ---
EXAMINATION: XR CHEST XR THORACIC SPINE XR RIGHT RIBS CLINICAL INFORMATION: Dyspnea, patient states pain radiates to anterior right ribs, back pain. COMPARISON: CT lung screening on 07/09/2023, chest x-rays of 07/24/2018 and 04/18/2019. TECHNIQUE: 2 views of the chest, 3 views of the thoracic spine, 3 views of the right ribs. FINDINGS: CHEST: Heart size is normal. There is no gross pneumothorax. No significant pleural effusion. A linear streaky opacity at the right lung base likely represents atelectasis/scar. THORACIC SPINE: Mild rightward curvature of the thoracic spine with mild multilevel degenerative changes. Degenerative changes on very limited images of the cervical spine could be evaluated with dedicated cervical spine radiographs. RIGHT RIBS: Advanced degenerative changes with hypertrophic change and deformity at the distal aspect of the right clavicle also present on prior chest radiograph. Radiopaque marker placed by technologist to indicate the area of concern as indicated by the patient along the inferior aspects of the right ribs. No displaced right rib fracture is appreciated. XR/XR thoracic spine 3V IMPRESSION: 1. Mild rightward curvature of the thoracic spine with mild multilevel degenerative changes. 2. No displaced right rib fracture is appreciated. 3. Advanced degenerative changes with hypertrophic change and deformity at the distal aspect of the right clavicle also present on prior chest radiograph. 4. CT scan could be considered for further evaluation based on the clinical assessment.
--- NOTE | ~2023-09-13 | XR_ITS ---
EXAMINATION: XR CHEST XR THORACIC SPINE XR RIGHT RIBS CLINICAL INFORMATION: Dyspnea, patient states pain radiates to anterior right ribs, back pain. COMPARISON: CT lung screening on 07/09/2023, chest x-rays of 07/24/2018 and 04/18/2019. TECHNIQUE: 2 views of the chest, 3 views of the thoracic spine, 3 views of the right ribs. FINDINGS: CHEST: Heart size is normal. There is no gross pneumothorax. No significant pleural effusion. A linear streaky opacity at the right lung base likely represents atelectasis/scar. THORACIC SPINE: Mild rightward curvature of the thoracic spine with mild multilevel degenerative changes. Degenerative changes on very limited images of the cervical spine could be evaluated with dedicated cervical spine radiographs. RIGHT RIBS: Advanced degenerative changes with hypertrophic change and deformity at the distal aspect of the right clavicle also present on prior chest radiograph. Radiopaque marker placed by technologist to indicate the area of concern as indicated by the patient along the inferior aspects of the right ribs. No displaced right rib fracture is appreciated. XR/XR ribs RT 2V IMPRESSION: 1. Mild rightward curvature of the thoracic spine with mild multilevel degenerative changes. 2. No displaced right rib fracture is appreciated. 3. Advanced degenerative changes with hypertrophic change and deformity at the distal aspect of the right clavicle also present on prior chest radiograph. 4. CT scan could be considered for further evaluation based on the clinical assessment.
== END 2023-09-13 13:27 | disposition home or self-care (01) ==
LOC: HO.XRAY 13:26
PROVIDERS: PCP Internal Medicine; Visit Provider Internal Medicine
DX: M54.9 Dorsalgia, unspecified (principal); R07.89 Other chest pain; R06.00 Dyspnea, unspecified
CPT/HCPCS: 71046; 71100; 72072

== ENCOUNTER 2023-10-23 06:11 | Outpatient (REF) | payer OTHER, SELFPAY ==
[2023-10-23 06:50] LABS: MANUAL DIFF FLAG NO
[2023-10-23 07:16] LABS: Basophils Absolute Auto 0.1 X10*3/uL (0.0-0.2); Basophils Percent Auto 0.9 % (0-2); Eosinophils Absolute Auto 0.5 X10*3/uL (0.0-0.4); Eosinophils Percent Auto 5.3 % (0-4); Hematocrit 37.7 % (37.0-47.0); Imm Gran Abs Auto 0.05 X10*3/uL (0.00-0.03); Imm Gran Pct Auto 0.6 % (0.0-0.4); Lymphocytes Absolute Auto 2.7 X10*3/uL (1.2-4.9); Lymphocytes Percent Auto 31.1 % (20-40); Mean Corpuscular HGB Conc 34.5 g/dl (31.0-35.0); Mean Corpuscular Hemoglobin 29.5 pg (27.0-33.0); Mean Corpuscular Volume 85.7 fL (80.0-98.0); Mean Platelet Volume 10.2 fL (9.4-12.3); Monocytes Absolute Auto 0.7 X10*3/uL (0.1-1.2); Monocytes Percent Auto 7.7 % (2-11); Neutrophils Absolute Auto 4.6 x10*3/uL (2.0-8.3); Neutrophils Percent Auto 54.4 % (45-73); Platelet Count 243 X10*3/uL (160-400); Red Cell Distribution Width 12.8 % (11.0-16.0); White Blood Count 8.5 X10*3/uL (4.8-10.8)
[2023-10-23 07:36] LABS: Alanine Aminotransferase 27 U/L (0-31); Albumin Level 4.3 g/dL (3.5-5.0); Alkaline Phosphatase 57 U/L (39-117); Anion Gap 11 (12-20); Aspartate Amino Transferase 23 U/L (5-31); Bilirubin Total 0.3 mg/dL (0.0-1.0); Blood Urea Nitrogen 19 mg/dL (9-16); C Reactive Protein < 0.10 mg/dL (< or = 0.50); Calcium 9.9 mg/dL (8.4-10.2); Carbon Dioxide 27 mmol/L (22-29); Chloride 105 mmol/L (96-108); Estimated Glomerular Filt Rate > 60; Glucose Random 94 mg/dL (60-115); Potassium 4.8 mmol/L (3.3-5.1); Sodium 138 mmol/L (135-145)
[2023-10-23 07:56] LABS: Free T4 (Free Thyroxine) 0.88 ng/dL (0.71-1.85); Thyroid Stimulating Hormone 2.18 uIU/mL (0.32-4.0)
[2023-10-23 08:01] LABS: Erythrocyte Sedimentation Rate 5 MM/HR (0-20)
[2023-10-23 08:46] LABS: Appearance Urine Clear; Color Urine Yellow; Glucose Urine UA Negative (Negative); Leukocyte Esterase Urine Trace (Negative); Nitrite Urine Negative (Negative); Specific Gravity - Urine <= 1.005 (1.005-1.025); UMIC TRIGGER UA YES; Urine Blood Negative (Negative); Urine Ketones Negative (Negative); Urine Protein Negative (Neg-Trace)
[2023-10-23 08:51] LABS: Bacteria Urine None Seen (None Seen); Hyaline Casts Urine 0-2 /LPF (0-2); RBC Urine 0-2 /HPF (0-2); Squamous Epithelial Cell Urine 0-2 /HPF (0-2); WBC Urine 0-5 /HPF (0-5)
[2023-10-23 09:26] LABS: Creatinine Urine 24.63 mg/dL; Total Protein Urine Random < 7 mg/dL (<12)
[2023-10-24 11:58] LABS: Complement C3 98 mg/dL (83-193)
[2023-10-29 07:23] LABS: Anti DNA DS Antibody <1 IU/mL
== END 2023-10-23 06:12 | disposition home or self-care (01) ==
LOC: HO.LAB 06:11
PROVIDERS: PCP Internal Medicine; Visit Provider Student in an Organized Health Care Education/Training Program
DX: M32.19 Other organ or system involvement in systemic lupus erythematosus (principal); E03.9 Hypothyroidism, unspecified
CPT/HCPCS: 36415; 80053; 81001; 82570; 84156; 84439; 84443; 85025; 85652; 86140; 86160; 86225

== ENCOUNTER 2023-11-07 09:36 | Outpatient (AMB) | payer OTHER, SELFPAY ==
--- NOTE | 2023-11-07 09:40 | A.OFFVIS_ITS ---
Vital Signs 11/07/23 09:42 Height 5 ft 3 in Weight 135 lb 5.821 oz BMI 24.0 BP 112/68 Blood Pressure Location Rt brachial Position Sitting Pulse 74 Pulse Source Pulse Oximeter Pulse Oximetry (%) 99 Oxygen Delivery Method Room Air Intake Visit Reasons: SLE Intake Note: Patient presents for SLE. Allergies gabapentin [GABAPENTIN] Allergy (Intermediate, Verified 11/07/23 09:42) GI UPSET acetaminophen [From Vicodin] Allergy (Unknown, Verified 11/07/23 09:42) Pruritis lorazepam [Ativan] Allergy (Unknown, Verified 11/07/23 09:42) Unknown hydrocodone [From VICODIN] Adverse Reaction (Mild, Verified 11/07/23 09:42) GI UPSET Medication List - Last Reconciled 11/07/23 by Morgan Lora MD acetaminophen (Tylenol) 650 mg PO Q6H PRN amlodipine 2.5 mg PO DAILY 90 days betamethasone dipropionate 0.05% topical buspirone 7.5 mg PO BID cholecalciferol (vitamin D3) 25 mcg PO DAILY 90 days cyclobenzaprine 10 mg PO TID PRN 30 days hydrocortisone valerate 0.2% topical BID hydroxychloroquine 300 mg PO DAILY levothyroxine 100 mcg PO QAM 90 days omeprazole 20 mg PO DAILY valacyclovir 1,000 mg PO BID HPI Comments Details: 63 year-old female with SLE returns for follow-up. She remains on hydroxychloroquine 300 mg daily. She states that she has not been doing well. She has been having spells of fatigue. She also has right-sided back pain that is positional, improves with massages, heating pads and rubs. She has gained a few lb despite no changes in her diet and is not happy about it. She states that her bowel movements are not regular. She is more constipated. She has not had any lupus rashes. Initial history: 61-year-old female with a past medical history of thyroid disease, chronic fatigue syndrome, fibromyalgia presents for evaluation of a positive ALEJANDRINA . She was evaluated last year by Dr. Stanley with comprehensive serology and he was negative for autoimmune rheumatic disease. Three months ago she developed rashes on her face and neck that were itchy, she was evaluated by turning sander tender Dr. Cortez who told her she has lupus. She was prescribed topical steroid creams with improvement of her skin rash. She continues to have skin rashes on her face and neck. Her repeat ALEJANDRINA testing is positive which prompted this visit. She recently went to urgent care for a swollen neck lymph node, she was prescribed prednisone 20 mg for 5 days with almost complete resolution of her symptoms. While on the prednisone she had about 30% relief of her joint pain. Otherwise she continues to have same symptoms of fatigue, and generalized aches of her muscles and joints. She smokes marijuana at night which helps her fall asleep but she has difficulty staying asleep. For her fibromyalgia she failed Cymbalta and 5 or 6 different antidepressants as she could not tolerate them. She also failed PT/OT, she tries to eat an anti inflammatory diet. Currently she is taking care of her 93-year-old father. Patient denies Raynaud's, oral or nasal ulcers, DVT or PE. [facility] Medical History Osteopenia Mixed hyperlipidemia Breast calcification, right Cutaneous lupus erythematosus Insomnia Cervical spinal stenosis Fibromyalgia GERD without esophagitis Vitamin D deficiency Tinea corporis Acquired hypothyroidism Depression Anxiety Lumbar degenerative disc disease Right shoulder pain Myalgia Arthralgia Benign essential hypertension Pure hypercholesterolemia Surgical History Hx of total ankle replacement Hx of endoscopy History of colonoscopy (~10/01/13) History of total ankle replacement Family History Father Hypertension Mother Stroke Cancer Diabetes Rheumatoid arthritis SLE (systemic lupus erythematosus) Paternal Grandmother Colon cancer Other Mental health problem Substance abuse Social History Household Members: Children Household Members Other:: Son Housing: Apartment Alcohol intake: current Alcohol intake frequency: does not drink Patient Tobacco Use Status: Former Tobacco user Tobacco use type: Cigarette e-Cigarette/Vaping Use: Never Used Second Hand Smoke Exposure: Yes Substance Use Type: Marijuana service: No Current occupational status: retired and disabled Sexual orientation: Straight/Heterosexual Gender identity: Female Cognitive needs: No Hearing needs: No Vision needs: Yes Female Reproductive History Menstrual Menopause type: natural Total pregnancies: 2 Number of Living Children: 0 Ab induced: 1 Ab spontaneous: 1 Review of Systems Const Reports fatigue and Reports weight gain Details: Bloating Musc Reports back pain Endo Reports fatigue Physical Exam Vital Signs: Last Vital Signs Pulse 74 11/07/23 09:42 BP 112/68 11/07/23 09:42 Pulse Ox 99 11/07/23 09:42 Oxygen Delivery Method Room Air 11/07/23 09:42 BMI result Body Mass Index 24.0 Const General: cooperative and healthy appearing Nutritional Appearance: average body habitus Orientation/consciousness: patient oriented x3 Limitations: no limitations HEENT Head: Yes normocephalic and Yes atraumatic Resp Effort & Inspection: normal respiratory effort and able to speak in complete sentences Auscultation: clear to auscultation bilaterally Cardio Rate: regular rate Rhythm: regular rhythm Heart sounds: S1 normal heart sound present and S2 normal heart sound present GI Inspection: No distended Palpation (GI): Soft to palpation and nontender Skin Other: No active lupus rashes today Neuro General: patient oriented x3 Extrem Other: No synovitis Normal nailfold capillaroscopy Some osteoarthritic changes of her hands Assessment & Plan Assessment & Plan (1) SLE (systemic lupus erythematosus): Comment: dx 04/19 (+ ALEJANDRINA, cutaneous SLE, fatigue, low C3 & C4 when in a flare) HCQ started 04/19 effective Code(s): M32.9 - Systemic lupus erythematosus, unspecified Category: Medical Qualifiers: Systemic lupus erythematosus type: unspecified Systemic lupus erythematosus organ involvement: other Qualified Code(s): M32.19 - Other organ or system involvement in systemic lupus erythematosus Plan: This is a 63-year-old female with mild SLE (cutaneous lupus, fatigue, ALEJANDRINA 1-160 speckled,?low C3 & C4 when in a flare)?who presents for follow-up. Doing quite well on hydroxychloroquine 300 mg daily. Continue current meds Labs before next visit in 6 months (2) Encounter for monitoring of hydroxychloroquine therapy: Comment: Eye exam 05/2023 [place] Code(s): Z51.81 - Encounter for therapeutic drug level monitoring; Z79.899 - Other care home (current) drug therapy Category: Medical Plan: Continue to follow-up regularly with train gate attendant (3) Abdominal bloating: Code(s): R14.0 - Abdominal distension (gaseous) Category: Medical Plan: Follow-up with GI Plan I spent 26 minutes reviewing patient's chart, evaluating patient, ordering diagnostic workup, counseling patient and documenting in the chart Orders: Orders Anti DNA DS Antibody 6 Months . - Other organ or system involvement in systemic lupus erythematosus Erythrocyte Sedimentation Rate 6 Months . - Other organ or system involvement in systemic lupus erythematosus UA w Microscopic 6 Months . - Other organ or system involvement in systemic lupus erythematosus Comprehensive Met. Panel 6 Months . - Other organ or system involvement in systemic lupus erythematosus Complement C3 6 Months . - Other organ or system involvement in systemic lupus erythematosus Complement C4 6 Months . - Other organ or system involvement in systemic lupus erythematosus C Reactive Protein 6 Months . - Other organ or system involvement in systemic lupus erythematosus Protein Creatinine Ratio, Ur 6 Months . - Other organ or system involvement in systemic lupus erythematosus Complete Blood Count Auto Diff 6 Months . - Other organ or system involvement in systemic lupus erythematosus Coding Level of Care Code Est Pt Level 4 (20747) Diagnoses Systemic lupus erythematosus with other organ involvement, unspecified SLE type Systemic lupus erythematosus type: unspecified Systemic lupus erythematosus organ involvement: other Encounter for monitoring of hydroxychloroquine therapy Z51.81; Z79.899 Abdominal bloating R14.0
[2023-11-07 09:42] VITALS: BP 112/68; PULSE 74; O2SAT 99; BMI 24.0
== END 2023-11-07 10:07 | disposition home or self-care (01) ==
PROVIDERS: PCP Internal Medicine; Visit Provider Student in an Organized Health Care Education/Training Program
DX: M32.19 Other organ or system involvement in systemic lupus erythematosus (principal); Z51.81 Encounter for therapeutic drug level monitoring; Z79.899 Other long term (current) drug therapy; R14.0 Abdominal distension (gaseous)
CPT/HCPCS: 99214

== ENCOUNTER → 2023-11-07 09:36 | Outpatient (BNVA) | payer OTHER, SELFPAY | PROVIDERS: PCP Internal Medicine; Visit Provider Student in an Organized Health Care Education/Training Program | DX: M32.19 Other organ or system involvement in systemic lupus erythematosus (principal); R74.8 Abnormal levels of other serum enzymes; R14.0 Abdominal distension (gaseous); Z79.899 Other long term (current) drug therapy; Z51.81 Encounter for therapeutic drug level monitoring | CPT/HCPCS: 99212 ==

== ENCOUNTER 2023-11-12 10:40 | Outpatient (AMB) | payer OTHER, SELFPAY ==
--- NOTE | 2023-11-12 11:05 | A.OFFVIS_ITS ---
Vital Signs 11/12/23 11:06 BP 132/78 Blood Pressure Location Rt brachial Position Sitting Respiration 17 Pulse 80 Pulse Source Pulse Oximeter Pulse Oximetry (%) 98 Oxygen Delivery Method Room Air Intake Visit Reasons: INP: ? MS/Weakness Intake Note: New pt presents to the office for consultation for full body weakness and fatigue for about 10 years now. Rate Clerk Required: No Allergies gabapentin [GABAPENTIN] Allergy (Intermediate, Verified 11/12/23 11:06) GI UPSET acetaminophen [From Vicodin] Allergy (Unknown, Verified 11/12/23 11:06) Pruritis lorazepam [Ativan] Allergy (Unknown, Verified 11/12/23 11:06) Unknown hydrocodone [From VICODIN] Adverse Reaction (Mild, Verified 11/12/23 11:06) GI UPSET HPI Comments Details: 63y/o female comes here for evaluation of possibel MS. 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 It has been going on for 10 years and was followed up by . she also has buzzing, burning sensation in her thighs and legs episodically- not sure if it is worse in evening.she has nocturnal leg cramping that wakes her up .she denies snoring. she reports generalized joint pain - diagnosed with SLE.cutaneous LE, fibromyalgia and follow sup with . she used to go to [facility] for cervical injections for pain.she denies urinary incontinence SHe denies double vision denies vertigo. she has h/o cluster headaches- infrequent now- 3/month [facility] Medical History (Updated 11/12/23 @ 12:19 by Keisha Kyle MD) Low back pain Hypersomnia Nocturnal leg cramps Osteopenia Mixed hyperlipidemia Breast calcification, right Cutaneous lupus erythematosus Insomnia Cervical spinal stenosis Fibromyalgia GERD without esophagitis Vitamin D deficiency Tinea corporis Acquired hypothyroidism Depression Anxiety Lumbar degenerative disc disease Right shoulder pain Myalgia Arthralgia Benign essential hypertension Pure hypercholesterolemia Surgical History Hx of total ankle replacement Hx of endoscopy History of colonoscopy (~10/01/13) History of total ankle replacement Family History Father Hypertension Mother Stroke Cancer Diabetes Rheumatoid arthritis SLE (systemic lupus erythematosus) Paternal Grandmother Colon cancer Other Mental health problem Substance abuse Social History Household Members: Children Household Members Other:: Son Housing: Apartment Alcohol intake: current Alcohol intake frequency: does not drink Patient Tobacco Use Status: Former Tobacco user Tobacco use type: Cigarette e-Cigarette/Vaping Use: Never Used Second Hand Smoke Exposure: Yes Substance Use Type: Marijuana service: No Current occupational status: retired and disabled Sexual orientation: Straight/Heterosexual Gender identity: Female Cognitive needs: No Hearing needs: No Vision needs: Yes Physical Exam Vital Signs: Last Vital Signs Pulse 80 11/12/23 11:06 Resp 17 11/12/23 11:06 BP 132/78 11/12/23 11:06 Pulse Ox 98 11/12/23 11:06 Oxygen Delivery Method Room Air 11/12/23 11:06 Const General: cooperative and comfortable Nutritional Appearance: average body habitus Orientation/consciousness: patient oriented x3 Eyes Pupils: Equal, round and reactive pupils present Neuro General: patient oriented x3, gait normal, tone normal, moves all extremities and no focal motor deficits Cranial nerves: Yes Facial sensation intact/muscles of mastication intact, Yes Equal, round and reactive pupils present, Yes Bilaterally intact EOM present, Yes Nystagmus not present, Yes Normal facial strength present, Yes Midline tongue present, Yes Symmetric palate elevation present and Yes Ability to bilaterally elevate shoulders present Cognition (Neuro): normal cognition Gait exam (Neuro): Antalgic gait present Deep tendon reflexes (DTR's): Right triceps reflex intensity grade: 2+, Left triceps reflex intensity grade: 2+, Rt Biceps (C5, C6): 2+, Left biceps reflex intensity grade: 2+, Right brachioradialis reflex intensity grade: 2+, Left brachioradialis reflex intensity grade: 2+, Right patellar reflex intensity grade: 3+ and Left patellar reflex intensity grade: 3+ Coordination: [id number] test normal Results Reviewed Results Reviewed: C spine MRI 2020 - multilevel deg changes Thoracic spine XRay- multilevel deg changes Assessment & Plan Assessment & Plan (1) Right-sided thoracic back pain: Comment: related to spondylosis Code(s): M54.6 - Pain in thoracic spine Category: Medical Qualifiers: Chronicity: unspecified Qualified Code(s): M54.6 - Pain in thoracic spine (2) Nocturnal leg cramps: Code(s): G47.62 - Sleep related leg cramps Category: Medical (3) Hypersomnia: Code(s): G47.10 - Hypersomnia, unspecified Category: Medical Plan PSG- to r/o JAMIE and PLMD X Ray Lumbar spine will consider repeat MRI C spine I will trial her on magnesium 400mg ropinirole XR 2mg qhs for nocturnal leg cramps Will hold off on MRI brain for now as she does not report any symptoms suggestive of MS Orders: Orders RT PSG in-lab sleep study Today G47.10 - Hypersomnia, unspecified, G47.62 - Sleep related leg cramps XR lumbar spine 2-3V Today M54.50 - Low back pain, unspecified Medications: New ropinirole ER 2 mg PO BEDTIME 30 tabs 6RF magnesium oxide 400 mg PO BEDTIME 30 tabs 6RF Coding Level of Care Code New Pt Level 4 (54511) Complex EM visit Add On G2211 Diagnoses Right-sided thoracic back pain, unspecified chronicity M54.6 Chronicity: unspecified Nocturnal leg cramps G47.62 Hypersomnia G47.10
[2023-11-12 11:06] VITALS: BP 132/78; PULSE 80; RESP 17; O2SAT 98
== END 2023-11-12 11:38 | disposition home or self-care (01) ==
PROVIDERS: PCP Internal Medicine; Visit Provider Psychiatry & Neurology Neurology
DX: M54.6 Pain in thoracic spine (principal); G47.62 Sleep related leg cramps; G47.10 Hypersomnia, unspecified
CPT/HCPCS: 99204; G2211

== ENCOUNTER → 2023-11-12 10:40 | Outpatient (BNVA) | payer OTHER, SELFPAY | PROVIDERS: PCP Internal Medicine; Visit Provider Psychiatry & Neurology Neurology | DX: R53.1 Weakness (principal); R53.83 Other fatigue; M54.6 Pain in thoracic spine; M54.50 Low back pain, unspecified; G47.10 Hypersomnia, unspecified; G47.62 Sleep related leg cramps | CPT/HCPCS: 99202 ==

== ENCOUNTER → 2023-12-31 19:30 | Outpatient (BNV) | payer OTHER, SELFPAY | PROVIDERS: PCP Internal Medicine; Visit Provider Psychiatry & Neurology Neurology | DX: G47.10 Hypersomnia, unspecified (principal) | CPT/HCPCS: 95810 ==

== ENCOUNTER → 2023-12-31 20:30 | Outpatient (REF) | payer OTHER, SELFPAY | LOC: HO.SL 20:30 | PROVIDERS: PCP Internal Medicine; Visit Provider Psychiatry & Neurology Neurology | DX: G47.62 Sleep related leg cramps (principal); G47.10 Hypersomnia, unspecified | CPT/HCPCS: 95810 ==

== ENCOUNTER 2024-01-09 08:58 | Outpatient (REF) | payer OTHER, SELFPAY ==
--- NOTE | 2024-01-09 09:03 | PFT_ITS ---
Flows: FEV1: 102 % of predicted at 2.35 L FVC: 107 % of predicted at 3.14 L FEV1/FVC: 75 % Bronchodilator response: Present in small to medium airways only Volumes: Total lung capacity: 100 % of predicted at 4.87 L Residual volume: 92 % of predicted at 1.60 L Slow vital capacity: 104 % of predicted at 3.7 L Expiratory reserve volume: 122 % of predicted at 0.92 L Diffusion capacity: Normal Impression: No obstructive or restrictive ventilatory defect. Bronchodilator response present in small to medium airways only. MTDD
[2024-01-09 14:32] VITALS: PULSE 76; O2SAT 100
== END 2024-01-09 08:59 | disposition home or self-care (01) ==
LOC: HO.RESP 08:58
PROVIDERS: PCP Internal Medicine; Visit Provider Internal Medicine
DX: J44.9 Chronic obstructive pulmonary disease, unspecified (principal); R06.09 Other forms of dyspnea
CPT/HCPCS: 94010; 94640; 94727; 94729

== ENCOUNTER → 2024-01-09 09:03 | Outpatient (BNV) | payer OTHER, SELFPAY | PROVIDERS: PCP Internal Medicine; Visit Provider Internal Medicine Pulmonary Disease | DX: J44.9 Chronic obstructive pulmonary disease, unspecified (principal) | CPT/HCPCS: 94060; 94727; 94729 ==

== ENCOUNTER 2024-03-19 08:30 | Outpatient (AMB) | payer OTHER, SELFPAY ==
--- NOTE | 2024-03-19 08:37 | A.OFFVIS_ITS ---
Vital Signs 03/19/24 08:41 Height 5 ft 3 in Weight 134 lb BMI 23.7 BP 124/82 Blood Pressure Location Rt brachial Position Sitting Intake Visit Reasons: follow up MS/Weakness Intake Note: patient presents for follow up Allergies gabapentin [GABAPENTIN] Allergy (Intermediate, Verified 03/19/24 08:42) GI UPSET acetaminophen [From Vicodin] Allergy (Unknown, Verified 03/19/24 08:42) Pruritis lorazepam [Ativan] Allergy (Unknown, Verified 03/19/24 08:42) Unknown hydrocodone [From VICODIN] Adverse Reaction (Mild, Verified 03/19/24 08:42) GI UPSET Medication List - Last Reconciled 03/19/24 by Keisha Kyle MD acetaminophen (Tylenol) 650 mg PO Q6H PRN amlodipine 2.5 mg PO DAILY 90 days betamethasone dipropionate 0.05% topical buspirone 7.5 mg PO BID cholecalciferol (vitamin D3) 25 mcg PO DAILY 90 days cyclobenzaprine 10 mg PO TID PRN 30 days hydrocortisone valerate 0.2% topical BID hydroxychloroquine 300 mg (1.5 x 200 mg) PO DAILY levothyroxine 100 mcg PO QAM 90 days omeprazole 20 mg PO DAILY valacyclovir 1,000 mg PO BID HPI Comments Details: 64y/o female comes here for follow up. she did not trial ropinirole - worried about side effects . she took magnesium and reported light sensitivity so stopped. she reports 3 spots in her spine with pain. The worst is in the mid scapula region . she feels like it is an open raw wound. she also reports episodes generalized weakness-lasting few minutes.Her leg cramps are better with medical marijuana _ THC and CBD edibles, smokes indica and takes a muscle relaxer. 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 It has been going on for 10 years and was followed up by . she also has buzzing, burning sensation in her thighs and legs episodically- not sure if it is worse in evening.she has nocturnal leg cramping that wakes her up .she denies snoring. she reports generalized joint pain - diagnosed with SLE.cutaneous LE, fibromyalgia and follow sup with . she used to go to [facility] for cervical injections for pain.she denies urinary incontinence SHe denies double vision denies vertigo. she has h/o cluster headaches- infrequent now- 3/month [facility] Medical History Low back pain Hypersomnia Nocturnal leg cramps Osteopenia Mixed hyperlipidemia Breast calcification, right Cutaneous lupus erythematosus Insomnia Cervical spinal stenosis Fibromyalgia GERD without esophagitis Vitamin D deficiency Tinea corporis Acquired hypothyroidism Depression Anxiety Lumbar degenerative disc disease Right shoulder pain Myalgia Arthralgia Benign essential hypertension Pure hypercholesterolemia Surgical History Hx of total ankle replacement Hx of endoscopy History of colonoscopy (~10/01/13) History of total ankle replacement Family History Father Hypertension Mother Stroke Cancer Diabetes Rheumatoid arthritis SLE (systemic lupus erythematosus) Paternal Grandmother Colon cancer Other Mental health problem Substance abuse Social History Household Members: Children Household Members Other:: Son Housing: Apartment Alcohol intake: current Alcohol intake frequency: does not drink Patient Tobacco Use Status: Former Tobacco user Tobacco use type: Cigarette e-Cigarette/Vaping Use: Never Used Second Hand Smoke Exposure: Yes Substance Use Type: Marijuana service: No Current occupational status: retired and disabled Sexual orientation: Straight/Heterosexual Gender identity: Female Cognitive needs: No Hearing needs: No Vision needs: Yes Physical Exam Vital Signs: Last Vital Signs BP 124/82 03/19/24 08:41 BMI result Body Mass Index 23.7 Const General: cooperative and comfortable Nutritional Appearance: average body habitus Orientation/consciousness: patient oriented x3 Eyes Pupils: Equal, round and reactive pupils present Neuro General: patient oriented x3, gait normal, tone normal, moves all extremities and no focal motor deficits Cranial nerves: Yes Facial sensation intact/muscles of mastication intact, Yes Equal, round and reactive pupils present, Yes Bilaterally intact EOM present, Yes Nystagmus not present, Yes Normal facial strength present, Yes Midline tongue present, Yes Symmetric palate elevation present and Yes Ability to bilaterally elevate shoulders present Cognition (Neuro): normal cognition Gait exam (Neuro): Antalgic gait present Coordination: [id number] test normal Assessment & Plan Assessment & Plan (1) Right-sided thoracic back pain: Comment: related to spondylosis Code(s): M54.6 - Pain in thoracic spine Category: Medical Qualifiers: Chronicity: unspecified Qualified Code(s): M54.6 - Pain in thoracic spine (2) Nocturnal leg cramps: Code(s): G47.62 - Sleep related leg cramps Category: Medical (3) Hypersomnia: Code(s): G47.10 - Hypersomnia, unspecified Category: Medical Plan PSG- was normal Declines medications magnesium 400mg ropinirole XR 2mg qhs for nocturnal leg cramps Will hold off on MRI brain for now as she does not report any symptoms suggestive of MS Coding Level of Care Code Est Pt Level 4 (32993) Diagnoses Right-sided thoracic back pain, unspecified chronicity M54.6 Chronicity: unspecified Nocturnal leg cramps G47.62 Hypersomnia G47.10
[2024-03-19 08:41] VITALS: BP 124/82; BMI 23.7
== END 2024-03-19 09:53 | disposition home or self-care (01) ==
PROVIDERS: PCP Internal Medicine; Visit Provider Psychiatry & Neurology Neurology
DX: M54.6 Pain in thoracic spine (principal); G47.62 Sleep related leg cramps; G47.10 Hypersomnia, unspecified
CPT/HCPCS: 99214

== ENCOUNTER → 2024-03-19 08:30 | Outpatient (BNVA) | payer OTHER, SELFPAY | PROVIDERS: PCP Internal Medicine; Visit Provider Psychiatry & Neurology Neurology | DX: M54.6 Pain in thoracic spine (principal); G47.62 Sleep related leg cramps; G47.10 Hypersomnia, unspecified | CPT/HCPCS: 99212 ==

== ENCOUNTER 2024-05-08 06:13 | Outpatient (REF) | payer OTHER, SELFPAY ==
--- OUTSIDE RECORDS SUMMARY | 2024-05-08 06:15 | XMS_ITS | Encounter Summary ---
Author Organization [facility] [facility] Address [address] [place] [address] Care Team Providers Care Inspector Raw Quartz Name Role Phone Unavailable Primary Care Provider Unavailabl e Encounter Details Date Type Department Care Team (Latest Contact Info) Description 06/30/2021 Abstract [facility] CONVERSIONS Dental, Provider, DDS Social History Tobacco Use Types Packs/Day Years Used Date Smoking Tobacco: Never Assessed Comments Unknown Sex and Gender Information Value Date Recorded Sex Assigned at Female 12/25/2021 10:39 AM EDT Legal Sex Female 10:39 AM EDT Gender Identity Choose not to disclose 10:39 AM EDT Sexual Orientation Choose not to disclose 2021 10:39 AM EDT documented as of this encounter Plan of Treatment Not on file documented as of this encounter Visit Diagnoses Not on filedocumented in this encounter
--- OUTSIDE RECORDS SUMMARY | 2024-05-08 06:15 | XMS_ITS | Clinical Summary ---
Author Organization [facility] Address [address] [place] [address] Care Team Providers Care Signal Maintainer Name Role Phone Unavailable Primary Care Provider Unavailabl e Social History Tobacco Use Types Packs/Day Years Used Date Smoking Tobacco: Never Assessed Sex and Gender Information Value Date Recorded Sex Assigned at Not on file Gender Identity Not on file Sexual Orientation Not on file Plan of Treatment Health Maintenance Due Date Last Done Comments Hepatitis C Virus Screening 1960 HIV Screening 02/16/1973 DTaP/Tdap/Td Vaccines (1 - Tdap) 02/16/1979 Pneumococcal Vaccines 50+ (1 of 1 - PCV) 02/16/2010 Zoster (Shingles) Vaccine (1 of 2) 02/16/2010 COVID-19 Vaccine ( - 2023-2 5 season) 2023 RSV Vaccine 60 years and old er and Patients (1 - 1-dose 75+ series) 02/16/2035 Hepatitis B Vaccines Aged Out No long er eligible based on patient's age to complete this topic Pneumococcal Vaccine: Pediat abdullahi (0-5 Years) and At-Risk Patients (6 to 49 Years) Aged Out No longer eligible b ased on patient's age to complete this topic
[2024-05-08 06:32] LABS: MANUAL DIFF FLAG NO
[2024-05-08 07:28] LABS: Basophils Absolute Auto 0.1 X10*3/uL (0.0-0.2); Basophils Percent Auto 1.1 % (0-2); Eosinophils Absolute Auto 0.3 X10*3/uL (0.0-0.4); Hematocrit 36.9 % (37.0-47.0); Hemoglobin 12.9 g/dl (12.0-16.0); Imm Gran Abs Auto 0.02 X10*3/uL (0.00-0.03); Imm Gran Pct Auto 0.3 % (0.0-0.4); Lymphocytes Absolute Auto 2.4 X10*3/uL (1.2-4.9); Lymphocytes Percent Auto 37.1 % (20-40); Mean Corpuscular Hemoglobin 29.5 pg (27.0-33.0); Mean Corpuscular Volume 84.4 fL (80.0-98.0); Mean Platelet Volume 10.1 fL (9.4-12.3); Monocytes Absolute Auto 0.5 X10*3/uL (0.1-1.2); Monocytes Percent Auto 7.8 % (2-11); Neutrophils Absolute Auto 3.2 x10*3/uL (2.0-8.3); Neutrophils Percent Auto 48.7 % (45-73); Platelet Count 225 X10*3/uL (160-400); Red Blood Count 4.37 X10*6/uL (4.20-5.50); Red Cell Distribution Width 13.4 % (11.0-16.0); White Blood Count 6.6 X10*3/uL (4.8-10.8)
[2024-05-08 07:40] LABS: Appearance Urine Clear; Color Urine Yellow; Glucose Urine UA Negative (Negative); Leukocyte Esterase Urine Trace (Negative); Nitrite Urine Negative (Negative); UMIC TRIGGER UA YES; Urine Blood Negative (Negative); Urine Ketones Negative (Negative); Urine Protein Negative (Neg-Trace)
[2024-05-08 07:45] LABS: Bacteria Urine None Seen (None Seen); Hyaline Casts Urine 0-2 /LPF (0-2); RBC Urine 0-2 /HPF (0-2); WBC Urine 0-5 /HPF (0-5)
[2024-05-08 08:02] LABS: Albumin Level 4.4 g/dL (3.5-5.0); Alkaline Phosphatase 59 U/L (39-117); Anion Gap 11 (12-20); Aspartate Amino Transferase 29 U/L (5-31); Bilirubin Total 0.2 mg/dL (0.0-1.0); Blood Urea Nitrogen 12 mg/dL (9-16); C Reactive Protein 0.19 mg/dL (< or = 0.50); Calcium 9.5 mg/dL (8.4-10.2); Carbon Dioxide 26 mmol/L (22-29); Chloride 103 mmol/L (96-108); Estimated Glomerular Filt Rate > 60; Glucose Random 89 mg/dL (60-115); Potassium 4.3 mmol/L (3.3-5.1); Sodium 136 mmol/L (135-145); Total Protein 7.7 g/dL (6.5-8.0)
[2024-05-08 08:12] LABS: Erythrocyte Sedimentation Rate 7 MM/HR (0-20)
[2024-05-08 08:13] LABS: Alanine Aminotransferase 24 U/L (0-31)
[2024-05-08 08:32] LABS: Creatinine Urine 58.02 mg/dL; Total Protein Urine Random < 7 mg/dL (<12)
[2024-05-11 11:39] LABS: Complement C3 110 mg/dL (83-193)
[2024-05-12 07:38] LABS: Anti DNA DS Antibody <1 IU/mL
== END 2024-05-08 06:14 | disposition home or self-care (01) ==
LOC: HO.LAB 06:13
PROVIDERS: PCP Internal Medicine; Visit Provider Student in an Organized Health Care Education/Training Program
DX: M32.19 Other organ or system involvement in systemic lupus erythematosus (principal)
CPT/HCPCS: 36415; 80053; 81001; 82570; 84156; 85025; 85652; 86140; 86160; 86225

== ENCOUNTER 2024-05-21 07:22 | Outpatient (AMB) | payer OTHER, SELFPAY ==
[2024-05-21 07:27] VITALS: BP 96/62; PULSE 72; O2SAT 98; BMI 23.7
--- NOTE | 2024-05-21 07:27 | MHC.OFFVIS ---
Vital Signs 05/21/24 07:27 Height 5 ft 3 in Weight 134 lb BMI 23.7 BP 96/62 Blood Pressure Location Rt brachial Position Sitting Pulse 72 Pulse Oximetry (%) 98 Oxygen Delivery Method Room Air Intake Visit Reasons: f/u appointment Intake Note: Patient follow up for abdominal bloating. CHARLEE was 09/13/2022. Patient cc: nauseas with some vomiting on and off, abdominal bloating, GERD with burning sensation, not regular BM, dizziness with balance problems. 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: No Accompanied by: Self / Same As Patient Allergies gabapentin [GABAPENTIN] Allergy (Intermediate, Verified 05/21/24 07:28) GI UPSET acetaminophen [From Vicodin] Allergy (Unknown, Verified 05/21/24 07:28) Pruritis lorazepam [Ativan] Allergy (Unknown, Verified 05/21/24 07:28) Unknown hydrocodone [From VICODIN] Adverse Reaction (Mild, Verified 05/21/24 07:28) GI UPSET Medication List - Last Reconciled 05/21/24 by Jerald Vidal MD acetaminophen (Tylenol) 650 mg PO Q6H PRN amlodipine 2.5 mg PO DAILY 90 days betamethasone dipropionate 0.05% topical buspirone 7.5 mg PO BID cholecalciferol (vitamin D3) 25 mcg PO DAILY 90 days cyclobenzaprine 10 mg PO TID PRN 30 days hydrocortisone valerate 0.2% topical BID hydroxychloroquine 300 mg (1.5 x 200 mg) PO DAILY levothyroxine 100 mcg PO QAM 90 days omeprazole 20 mg PO DAILY valacyclovir 1,000 mg PO BID HPI HPI f/u appointment: Details: GI CLINIC VISIT FOR THIS 64-YEAR-OLD FEMALE FOR FOLLOW-UP OF GERD AND GASTRIC EROSIONS. Pt was last seen on 09/13/22 CHRONIC ILLNESSES:?GERD, HYPOTHYROIDISM, CALCIUM DEFICIENCY, ANXIETY, SMOKER, MEDICAL MARIJUANA & ? HTN. MIGRAINE HEADACHES TODAY'S VISIT Patient cc: nauseas with some vomiting on and off, abdominal bloating, GERD with burning sensation, not regular BM, dizziness with balance problems. Continues to have nausea which comes all of a sudden and disappears within a minute or two. Nausea is not as bad as it used to be - 4 times a week instead of daily. Unable to identify any triggers - can be driving and can get wicked hunger pains Intermittent RUQ cramps while sitting or lying down and if she gets in a recliner after a meal. Heartburn has been acting up and takes 40 mg Omeprazole instead of 20 till it calms down Or take some baking soda Took Lactose free milk x 4 months and noted constipation Eats 4-5 prunes a day to have a regular BM. Eats tons of fruits and veggies Has a BM daily to every other day. PAST VISITS: Notes nausea 3 times a day and feels she is going to throw up. and passes in a few min She threw up a few times when she started taking the hydroxychloroquin Nausea is random and not associated with eating. Feels tired after eating in the morning and has to lay down. Notes bloating when she has a flare of fibromyalgia. Bloating resolves with resolution of the flare When she had the colonoscopy last time, she had difficulty with pooping (poop came out like raw egg white) for 6 months. Eventually straightened itself out. Paternal GM at age 39 yrs with colon cancer Dad is 94 yrs and had no polyps on colonoscopies in the past. Has an 8 month old grandson. PAST VISIT: Feels good for the most part. Still gets intermittent feeling that she is going to throw up and never has vomiting Has episodes when he has the nausea daily - 3-4 times a week instead of daily Comes out of nowhere, lasts for a few min and passes Wt is stable at 126 (baseline wt is 125) Continues to have intermittent random episodes of nausea without vomiting before, during or after eating. Episodes last 5 min and resolve spontaneously Happens more frequently after she started drinking tea with honey and half and half. Has been cooking at home. Started to get a vessel operator on which foods trigger her symptoms - cheese and dairy Adds whey protein to her smoothies. Walks, rides her bike and plays golf. Nibbling on meat which tends to bother her a little bit. Wt stable at 125 lbs , walks 2 miles every day. Started taking a MVI (Cornocopia) too and has helped with her hair and nails x 2.5 months. Pt has problems with her entire spine and sees Darleen at the spine clinic. Treated with injections in the neck for neck pain and Occipital nerve for ABEL with improvement in symptoms. ?Was doing better for a while and notes recurrent symptoms for a week coinciding with a flare of fibromyalgia. Three episodes yesterday and none today. Walks 3 miles a day, golfs three times a week and bikes. The more she moves, the better she feels. Feels bloated and simethicone was not helpful Takes acetaminophen and a muscle relaxant for fibromyalgia Physical therapy and occupational therapy was not useful Being scheduled for an MRI of thoracic spine at [facility]. BMs are regular and has a normal BMs daily. Takes a lot of fruits and fibre and a serving of fruit. Weight is stable at 125 lbs (varies between 125 to 132 lbs) Cut out dairy and sugar from her diet. Does not take a lot of gluten. ? ? ? She is under increased stress due to Dad's failing health - he is 92 and lives in [place]. ? ? ? Stress and anxiety became worse a month ago. ?? ? Started taking Buspirone and scheduled appt with her therapist. ?? ? Took medical marijuana and GI symptoms became worse so she stopped taking it. ?? ? Has lost 20 lbs over the past month.? Not eating as well since her schedule has become very busy. ? ? Feels best when she keeps moving - ok with how she feels with Fibromyalgia. ? Seen by Rheumatology and has a follow up appt on 02/23/20. ? Gets sick to her stomach 4-5 times a day - feels she has to vomit and clears up in 5 min. ? Has happened in the middle of a meal and during walks in the morning. ? Does not vomit. ? ? ? Appetite is completely normal ? Has intermittent ABEL and dizziness and does not coincide with her GI symptoms. ? BMs are regular. ? ? ? Weight varies between 130 and 135 lbs. ? ? ? Tried Simethicone for abdominal bloating and was not helpful. ? Has not had bloating or gas for a month. ? Gets sudden and random nausea 2-3 times a day - resolves spontaneously in 2-3 min. ? Can happen while stomach is empty, full or sometimes in the middle of a meal. ? Does not drink milk. Has cut way back on the dairy. ? Experiencing gas and bloating - comes and goes with joint and muscle pains (when her body gets inflammed). ? As joint and muscles pains subside after 4-7 weeks, gas and bloating resolves ? Hair is shedding much heavier than normal. ? Can be overwhelmed with fatigue - diagnosed with CFS in 2009. ? Started walking x 3 months - walks 2 miles of brisk walk every single morning. ? Diet consists of a lot of fruits and vegetables. ? Takes 6 prunes every day and no issues with BMs. ? Being referred to Dr Lopez (Neurologist at [facility]) to rule out MS. ? Has an appt with Neurosurgeon tomorrow. ? Mom had Lupus and Fibromyalgia ?LABS IN [facility]:?reviewed. ? 04/18/19 normal CBC, normal Chem panel, AST 25 AST 39, alkaline phosphatase is 60, lipase 47, ALEJANDRINA was negative ?IMAGING STUDIES: 03/26/19 Gastric Emptying study showed: ? Retention in the stomach at each time interval was: ? 1 hour 93% (normal 37%-90%) ? 2 hours 48% (normal 30%-60%) ? 3 hours 16% ? 4 hours 4% (normal 0%-10%) ? 09/14/[address] SCAN SHOWED: No evidence for acute abdominal or pelvic inflammatory or infectious processes. ? 08/13/18 UGI SHOWED: ? On placing patient supine and prone lying there is moderate ? flocculation of barium in the antrum suggestive of hyperacidity. There ? is punctate barium pooling in the antrum as well suggestive of gastric ? erosion. No evidence of duodenal ulceration. ? On placing patient supine and prone lying there is mild ? gastroesophageal reflux without hiatal hernia. The course, caliber and ? peristalsis of the stomach and the duodenum is normal. ?ENDOSCOPIC STUDIES: 09/08/2018 EGD SHOWED: ? ESOPHAGUS: Dysphagia likely due to esophageal motility disorder. Small hiatal ? hernia with a small tongue of possible Rollins's. ? STOMACH: Gastritis ? DUODENUM: Benign appearing duodenal polyp ? Plan: ? Await pathology results ? Continue present medications (Omeprazole at 20 mg PO once daily) ? Patient has an appointment on 09/19/18 in the GI Clinic with Jerald Vidal M.D ? Above findings were reviewed with the patient and relevant handouts ? were provided in the discharge area. ? ADDENDUM: BIOPSIES SHOWED: ? A. Small bowel, biopsies: Small bowel mucosa with no significant ? histopathology; no villous abnormality identified; no increase in intraepithelial lymphocytes. ? B. Duodenal bulb polyp, polypectomy: Chronic inactive duodenitis. Negative for dysplasia. ? C. Stomach, antrum, biopsy: Reactive gastropathy with background mild chronic ? inactive inflammation; no Helicobacter organisms seen. ? D. Stomach, body, biopsy: Mild chronic, inactive gastritis; no Helicobacter pylori organisms seen. ? E. Esophagus, distal, biopsy: Esophagogastric junctional mucosa with moderate chronic inflammation and scant squamous epithelium with reactive features suggestive of reflux disease; negative for intestinal metaplasia; negative for dysplasia. ? 09/2013 colonoscopy was performed by Dr. Wilson and was negative. ? Repeat colonoscopy was advised in 10 years - due in 2023 [facility] Medical History (Updated 05/21/24 @ 08:06 by Jerald Vidal MD) Personal history of nicotine dependence Low back pain Hypersomnia Nocturnal leg cramps Osteopenia Mixed hyperlipidemia Breast calcification, right Cutaneous lupus erythematosus Insomnia Cervical spinal stenosis Fibromyalgia GERD without esophagitis Vitamin D deficiency Tinea corporis Acquired hypothyroidism Depression Anxiety Lumbar degenerative disc disease Right shoulder pain Myalgia Arthralgia Benign essential hypertension Pure hypercholesterolemia Surgical History Hx of total ankle replacement Hx of endoscopy History of colonoscopy (~10/01/13) History of total ankle replacement Family History Father Hypertension Mother Stroke Cancer Diabetes Rheumatoid arthritis SLE (systemic lupus erythematosus) Paternal Grandmother Colon cancer Other Mental health problem Substance abuse Social History Household Members: Children Household Members Other:: Son Housing: Apartment Alcohol intake: current Alcohol intake frequency: does not drink Patient Tobacco Use Status: Former Tobacco user Tobacco use type: Cigarette e-Cigarette/Vaping Use: Never Used Second Hand Smoke Exposure: Yes Substance Use Type: Marijuana service: No Current occupational status: retired and disabled Sexual orientation: Straight/Heterosexual Gender identity: Female Cognitive needs: No Hearing needs: No Vision needs: Yes Review of Systems Const Reports fatigue, Denies fever(s), Reports headache(s) and Denies weight loss Eyes Denies eye discharge and Denies irritation ENT Reports Normal hearing present, Denies dysphagia, Denies dizziness and Reports headache(s) Card Reports chest pain, Denies leg edema and Reports dyspnea on exertion Resp Reports cough, Reports dyspnea on exertion and Denies wheezing GI Reports abdominal pain, Reports bloating, Denies change in bowel habits, Denies dysphagia, Reports heartburn and Reports nausea Denies difficulty voiding, Denies dysuria and Reports other (LMP - 15 yrs ago) Musc Denies back pain, Reports arthralgias and Reports other (arthritis) Skin/Breast Denies pruritus, Reports rash and Denies jaundice Neuro Reports Normal hearing present, Denies Abnormal speech present, Denies dizziness, Reports headache(s) and Denies seizure-like activity Psych Reports anxiety, Denies depression and Denies panic attacks Endo Denies cold intolerance, Reports fatigue, Denies flushing and Denies heat intolerance Torres/Lymph Denies easy bleeding and Denies easy bruising Aller/Immun Denies wheezing Physical Exam Vital Signs: Last Vital Signs Pulse 72 05/21/24 07:27 BP 96/62 05/21/24 07:27 Pulse Ox 98 05/21/24 07:27 Oxygen Delivery Method Room Air 05/21/24 07:27 BMI result Body Mass Index 23.7 Const General: healthy appearing and no acute distress Nutritional Appearance: average body habitus Orientation/consciousness: patient oriented x3 Limitations: no limitations HEENT Head: Yes normal to inspection Ears: hearing grossly normal bilaterally Mouth: Normal oral and palatal mucosa present Eyes Sclerae: sclerae normal Pupils: Equal, round and reactive pupils present Neck Neck: Yes normal visual inspection Chest Chest palpation & inspection: normal inspection of the chest Resp Effort & Inspection: normal respiratory effort Auscultation: clear to auscultation bilaterally Cardio Palpation: normal PMI Rate: regular rate Rhythm: regular rhythm Heart sounds: S1 normal heart sound present, S2 normal heart sound present and no murmurs GI Palpation (GI): Soft to palpation, nontender and No hepatosplenomegaly present Auscultation: normal bowel sounds Rectal Exam - Female: deferred Skin General skin exam: no rashes or lesions noted Neuro General: patient oriented x3, gait normal and moves all extremities Cranial nerves: Yes Equal, round and reactive pupils present and Yes Normal hearing present Speech: No Abnormal speech present Psych Appearance: grossly normal Mental Status: mental status grossly normal Assessment & Plan Assessment & Plan (1) GERD without esophagitis: Code(s): K21.9 - Gastro-esophageal reflux disease without esophagitis Category: Medical (2) Colon cancer screening: Comment: 09/2013 colonoscopy was performed by Dr. Wilson and was negative. Patient was advised repeat colonoscopy due to positive family history (Paternal GM at age 36 yrs). Patient preferred to have a stool fit test which was negative in 09/2019 and 09/2021. She is reluctant to undergo colonoscopy at present. When she had the colonoscopy last time, she had difficulty with pooping (poop came out like raw egg white) for 6 months. Eventually straightened itself out. Dad is 94 yrs and had no polyps on colonoscopies in the past. Code(s): Z12.11 - Encounter for screening for malignant neoplasm of colon Category: Medical (3) Abdominal bloating: Code(s): R14.0 - Abdominal distension (gaseous) Category: Medical (4) Early satiety: Code(s): R68.81 - Early satiety Category: Medical (5) Nausea: Code(s): R11.0 - Nausea Category: Medical (6) RUQ abdominal pain: Code(s): R10.11 - Right upper quadrant pain Category: Medical Plan 64 YF with GERD, HYPOTHYROIDISM, CALCIUM DEFICIENCY, ANXIETY, SMOKER, MEDICAL MARIJUANA followed in GI for abdominal pain, nausea vomiting, bloating and change in bowel habits. UGI showed punctate barium pooling in the antrum suggestive of gastric erosion. No evidence of duodenal ulceration. Patient admitted to being under increased stress due to her dad's health and alcoholism in 2 brothers and attributes nausea due to increased stress. August 2018 EGD showed gastritis and a benign polyp was removed from the duodenum. Lab evaluation for celiac disease was negative, Vitamin B 12 was normal. Her symptoms of early satiety, nausea and vomiting were suggestive of idiopathic gastroparesis /? cannabis hyperemesis syndrome. Gastric emptying study and an abdominal CT scan were normal. Patient was advised to continue omeprazole for GERD, take Simethicone for gas and bloating. Her musculoskeletal symptoms are suggestive of fibromyalgia. Pt gives a history of wt loss which she attributes to stress and decreased PO intake due to her busy schedule and she was advise to keep healthy snacks and try to eat while driving (if she is not able to eat scheduled meals) She was advised to keep a log of episodes of nausea and vomiting and make a list of food which trigger it. 05/21/24 Pt complains of intermittent nausea and RUQ pain Took Lactose free milk x 4 months and noted constipation Eats 4-5 prunes a day to have a regular BM. Eats tons of fruits and veggies Has a BM daily to every other day. Pt advised to schedule an Abd US, EGD and Colonoscopy [place] twice a week to see if nausea and abd bloating improves GI follow-up appointment in 4 months - scheduled 09/24/24 Orders: Orders US abdomen limited Today R10.11 - Right upper quadrant pain Medications: New bisacodyl (Dulcolax (bisacodyl)) Take 2 tablets at 12 pm the day before colonoscopy 10 mg (2 x 5 mg) PO ONCE 5 days 10 tabs 0RF sennosides-docusate sodium 8.6-50 mg (Senna with Docusate Sodium) (2 x 8.6-50 mg) 2 tab-caps orally twice a week at bedtime 60 days 90 tabs 1RF polyethylene glycol 3350 (Miralax) Mix Miralax with 64 oz(8 cups) of Crystal light. Take 2 tablets of Dulcolax qt 12 pm. Wait to have your 1st bowel movement, then begin drinking Miralax. Drink a glass of Miralax every 10-15 minutes until you are finished. You will drink at least another 4 cups of clear liquid of your choice over the next 2 hours. Please drink as many clear liquids as possible You may have clear liquids up to four hours before your procedure 17 grams PO DAILY 1 day 238 grams 0RF Coding Level of Care Code Est Pt Level 4 (22784) Diagnoses GERD without esophagitis K21.9 Colon cancer screening Z12.11 Abdominal bloating R14.0 Early satiety R68.81 Nausea R11.0 RUQ abdominal pain R10.11 Time Spent (min) 21
== END 2024-05-21 08:17 | disposition home or self-care (01) ==
LOC: HO.HGI 07:24
PROVIDERS: PCP Internal Medicine; Visit Provider Internal Medicine Gastroenterology
DX: K21.9 Gastro-esophageal reflux disease without esophagitis (principal); R14.0 Abdominal distension (gaseous); R68.81 Early satiety; R11.0 Nausea
CPT/HCPCS: 99214

== ENCOUNTER → 2024-05-21 07:22 | Outpatient (BNVA) | payer OTHER, SELFPAY | PROVIDERS: PCP Internal Medicine; Visit Provider Internal Medicine Gastroenterology | DX: K21.9 Gastro-esophageal reflux disease without esophagitis (principal); R14.0 Abdominal distension (gaseous); R68.81 Early satiety; R11.2 Nausea with vomiting, unspecified; R10.11 Right upper quadrant pain | CPT/HCPCS: 99212 ==

== ENCOUNTER 2024-07-01 07:57 | Outpatient (REF) | payer OTHER, SELFPAY ==
--- NOTE | ~2024-07-01 | US_ITS ---
EXAMINATION: US ABDOMEN LIMITED CLINICAL INFORMATION: Right upper quadrant pain.. COMPARISON: September 05, 2018. TECHNIQUE: Real-time ultrasound right upper quadrant abdomen using grayscale technique. FINDINGS: Gallbladder is fluid-filled. No pericholecystic fluid collection or gallbladder wall thickening. Common bile duct measures 5 mm. Liver measures 15 cm. Normal echotexture. No nodularity. No solid or cystic lesion detected by the technologist. No intrahepatic biliary ductal dilatation. No peripancreatic fluid collections. Right kidney measures 9 cm. Normal echotexture. Normal renal cortical thickness. No hydronephrosis. No solid or cystic lesion. Normal flow on color Doppler interrogation of the renal hilum. No ascites. US/US abdomen limited IMPRESSION: No cholelithiasis. No hydronephrosis, right kidney. No ascites. Liver is normal. Electronically signed by: Morgan Silverman MD 07/01/2024 08:21 AM EDT
--- OUTSIDE RECORDS SUMMARY | 2024-07-01 07:59 | XMS_ITS | Encounter Summary ---
Author Organization [facility] Address [address] [place] [address] Care Team Providers Care Control Panel Builder Name Role Phone Unavailable Primary Care Provider [...]
--- OUTSIDE RECORDS SUMMARY | 2024-07-01 07:59 | XMS_ITS | Clinical Summary ---
Author Organization [facility] Address [address] [place] [address] Care Team Providers Care Edge Burnisher Name Role Phone Unavailable Primary Care Provider Unavailabl e Social History Tobacco Use Types Packs/Day Years Used Date Smoking Tobacco: Never Assessed Comments Unknown Sex and Gender Information Value Date Recorded Sex Assigned at Not on file Legal Sex Female 12:21 PM EDT Gender Identity Not on file Sexual Orientation [...]
--- OUTSIDE RECORDS SUMMARY | 2024-07-01 07:59 | XMS_ITS | Clinical Summary ---
Author Organization [facility] Address [address] [place] [address] Care Team Providers Care Emergency Care Tech Name Role Phone Unavailable Primary Care Provider [...] not to disclose 2021 10:39 AM EDT Plan of Treatment Health Maintenance Due Date Last Done Comments CT Colonography 1960 Colonoscopy 1960 Colorectal Cancer Screening 1960 Depression Screening 1960 FIT DNA/Cologuard 1960 FIT 1960 FOBT 1960 Sigmoidoscopy 1960 Alcohol/Substance Use Screening 1972 Tobacco Screening 1972 DTaP/Tdap/Td Vaccines (1 - Tdap) 02/16/1979 Pap Smear 02/16/1981 Cervical Cancer Screening 02/16/1990 HPV/Cotest 02/16/1990 Mammogram 2000 Pneumococcal Vaccine: 50+ Ye ars (1 of 1 - PCV) 02/16/2010 Zoster Vaccines (1 of 2) 02/16/2010 COVID-19 Vaccine ( - 2023-2 5 season) 2023 Influenza Vaccine (#1) 2023 RSV Patients and Pa tients Aged 60 years or older (1 - 1-dose 75+ series) 02/16/2035 HIB Vaccines Aged Out No longer eligi ble based on patient's age to complete this topic HPV Vaccines Aged Out No longer eligi ble based on patient's age to complete this topic Hepatitis A Vaccines Aged Out No long er eligible based on patient's age to complete this topic Hepatitis B Vaccines Aged Out No long er eligible based on patient's age to complete this topic IPV Vaccines Aged Out No longer eligi ble based on patient's age to complete this topic Meningococcal Vaccine Aged Out No penny jamal eligible based on patient's age to complete this topic Pneumococcal Vaccine: Pediat rics (0 to 5 Years) and At-Risk Patients (6 to 49) Years) Aged Out No longer eligible b ased on patient's age to complete this topic RSV under 20 months Aged Out No longe r eligible based on patient's age to complete this topic Rotavirus Vaccines Aged Out No longer eligible based on patient's age to complete this topic
== END 2024-07-01 07:58 | disposition home or self-care (01) ==
LOC: HO.US 07:57
PROVIDERS: PCP Internal Medicine; Visit Provider Internal Medicine Gastroenterology
DX: R10.11 Right upper quadrant pain (principal)
CPT/HCPCS: 76705

== ENCOUNTER → 2024-07-01 07:57 | Outpatient (BNV) | payer OTHER, SELFPAY | PROVIDERS: PCP Internal Medicine; Visit Provider Radiology Diagnostic Radiology | DX: R10.11 Right upper quadrant pain (principal) | CPT/HCPCS: 76705 ==

== ENCOUNTER 2024-07-02 09:00 | Outpatient (AMB) | payer OTHER, SELFPAY ==
--- NOTE | 2024-07-02 09:02 | A.OFFVIS_ITS ---
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 She is doing well with no [employer] sales and lending team member concerns. Currently not sexually active. Denies any vaginal dryness or irritation. Attempting to eat a healthy diet with calcium and vitamin D and stays active with exercise. Last pap smear; 2020. Last mammogram; 2022. History of osteopenia. Denies any family history of breast, ovarian or colon cancer. [facility] Medical History Personal history of nicotine dependence Low back pain Hypersomnia Nocturnal leg cramps Osteopenia Mixed hyperlipidemia Breast calcification, right Cutaneous lupus erythematosus Insomnia Cervical spinal stenosis Fibromyalgia GERD without esophagitis Vitamin D deficiency Tinea corporis Acquired hypothyroidism Depression Anxiety Lumbar degenerative disc disease Right shoulder pain Myalgia Arthralgia Benign essential hypertension Pure hypercholesterolemia Surgical History Hx of total ankle replacement Hx of endoscopy History of colonoscopy (~10/01/13) History of total ankle replacement Family History Father Hypertension Mother Stroke Cancer Diabetes Rheumatoid arthritis SLE (systemic lupus erythematosus) Paternal Grandmother Colon cancer Other Mental health problem Substance abuse Social History Household Members: Children Household Members Other:: Son Housing: Apartment Alcohol intake: current Alcohol intake frequency: does not drink Patient Tobacco Use Status: Former Tobacco user Tobacco use type: Cigarette e-Cigarette/Vaping Use: Never Used Second Hand Smoke Exposure: Yes Substance Use Type: Marijuana service: No Current occupational status: retired and disabled Sexual orientation: Straight/Heterosexual Gender identity: Female Cognitive needs: No Hearing needs: No Vision needs: Yes Female Reproductive History Menstrual Total pregnancies: 2 Number of Living Children: 0 Ab induced: 1 Ab spontaneous: 1 Date of last pap smear: 04/25/20 (neg pap and hpv) Date of Mammogram: 07/12/22 (Birad 1) Date of last Bone Density Screenin01/31/23 Review of Systems Const All systems reviewed & are unremarkable except as noted in HPI and below Reports as per HPI Eyes Reports no additional complaints ENT Reports no additional complaints Card Reports no additional complaints Resp Reports no additional complaints GI Reports as per HPI and Reports no additional complaints Reports as per HPI Musc Reports no additional complaints Skin/Breast Reports as per HPI Neuro Reports no additional complaints Psych Reports no additional complaints Endo Reports no additional complaints Torres/Lymph Reports no additional complaints Aller/Immun Reports no additional complaints Physical Exam Vital Signs: Last Vital Signs BP 112/70 07/02/24 09:04 BMI result Body Mass Index 23.7 Const General: cooperative, healthy appearing, no acute distress, well developed and alert Orientation/consciousness: patient oriented x3 HEENT Head: Yes normal to inspection Eyes General: appearance normal, both eyes and all related structures Neck Neck: Yes normal visual inspection Thyroid: Thyroid normal Chest Chest palpation & inspection: normal inspection of the chest and other (no puckering, dimpling, peau de orange, retraction, discharge, masses) Breast/axilla inspection: normal inspection of the breasts Breast/axilla palpation: normal palpation of the breasts Resp Effort & Inspection: normal respiratory effort GI Inspection: Yes normal to inspection Palpation (GI): Soft to palpation Rectal Exam - Female: deferred General: Yes bladder normal to palpation External Female Exam: normal external appearance and normal appearance of the urethra Speculum Exam - Vagina: normal appearance of the vagina, normal palpation, normal vaginal discharge and vagina atrophic Speculum Exam - Cervix: normal appearance of the cervix and normal palpation Bimanual exam- vagina & uterus: normal bimanual exam, normal palpation, uterine size normal, bladder normal to palpation, normal palpation and non-tender Bimanual Exam- Adnexa, other: no masses Skin General skin exam: no rashes or lesions noted Rashes: no rashes Neuro General: patient oriented x3 Cognition (Neuro): normal cognition Extrem General: Yes normal to inspection Psych Attitude: cooperative Thought process: Normal thought process present Assessment & Plan Assessment & Plan (1) Encounter for well woman exam with routine gynecological exam: Code(s): Z01.419 - Encounter for gynecological examination (general) (routine) without abnormal findings Category: Medical Plan Discussed: Current recommendations for pap smears per ASCCP guidelines. Breast awareness, periodic self breast exams and yearly mammogram. Mammogram ordered. DEXA scan ordered. Maintain a healthy lifestyle, well balanced diet including Calcium 1,200 mg and Vitamin D 600 IU daily, and routine exercise. Contact the office with any postmenopausal bleeding. Patient verbalizes understanding and agrees to the plan of care. She was given opportunity to ask questions and all questions were answered to the best of my ability. 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 This note is constructed using voice recognition software. While every effort has been made to ensure accuracy, stacker driver errors may have been included. Orders: Orders MM tomosynthesis screening BI Today Z12.31 - Encounter for screening mammogram for malignant neoplasm of breast XR DEXA axial skeleton 02/22/25 M85.80 - Other specified disorders of bone density and structure, unspecified site, Z78.0 - Asymptomatic menopausal state Coding Level of Care Code Est Pt Prev Care 40-64y(02829) Diagnoses Encounter for well woman exam with routine gynecological exam Z01.419
[2024-07-02 09:04] VITALS: BP 112/70; BMI 23.7
--- OUTSIDE RECORDS SUMMARY | 2024-07-02 09:25 | XMS_ITS | Clinical Summary ---
Author Organization [facility] [employer] Address [address] [place] [address] Care Team Providers Care Tar Distillation Supervisor Name Role Phone Unavailable Primary Care Provider [...]
--- OUTSIDE RECORDS SUMMARY | 2024-07-02 09:25 | XMS_ITS | Encounter Summary ---
Author Organization [facility] [employer] [facility] Address [address] [place] [address] Care Team Providers Care Gravedigger Name Role Phone Unavailable Primary Care Provider Unavailabl e Encounter Details Date Type Department Care Team (Latest Contact Info) Description 06/30/2021 Abstract C CONVERSIONS Dental, Provider, DDS Social History Tobacco [...]
--- OUTSIDE RECORDS SUMMARY | 2024-07-02 09:25 | XMS_ITS | Clinical Summary ---
Author Organization [facility] Address [address] [place] [address] Care Team Providers Care Helper Maintenance Cleaning Name Role Phone Unavailable Primary Care Provider [...]
== END 2024-07-02 09:30 | disposition home or self-care (01) ==
LOC: HO.HWS 09:00
PROVIDERS: PCP Internal Medicine; Visit Provider Advanced Practice Midwife
DX: Z01.419 Encounter for gynecological examination (general) (routine) without abnormal findings (principal)
CPT/HCPCS: 99396; 99459

== ENCOUNTER → 2024-07-02 09:00 | Outpatient (BNVA) | payer OTHER, SELFPAY | PROVIDERS: PCP Internal Medicine; Visit Provider Advanced Practice Midwife | DX: Z01.419 Encounter for gynecological examination (general) (routine) without abnormal findings (principal) | CPT/HCPCS: 99396; 99459 ==

== ENCOUNTER 2024-07-08 12:49 | Outpatient (REF) | payer OTHER, SELFPAY ==
--- OUTSIDE RECORDS SUMMARY | 2024-07-08 13:07 | XMS_ITS | Clinical Summary ---
Author Organization [facility] Address [address] [place] [address] Care Team Providers Care Control Manager Name Role Phone Unavailable Primary Care Provider [...]
--- OUTSIDE RECORDS SUMMARY | 2024-07-08 13:07 | XMS_ITS | Clinical Summary ---
Author Organization [facility] [employer] Address [address] [place] [address] Care Team Providers Care Appointment Specialist Name Role Phone Unavailable Primary Care Provider [...]
--- OUTSIDE RECORDS SUMMARY | 2024-07-08 13:07 | XMS_ITS | Encounter Summary ---
Author Organization [facility] [employer] [facility] Address [address] [place] [address] Care Team Providers Care Salon Receptionist Name Role Phone Unavailable Primary Care Provider [...]
== END 2024-07-08 12:50 | disposition home or self-care (01) ==
LOC: HO.CT 12:49
PROVIDERS: PCP Internal Medicine; Visit Provider Nurse Practitioner Family
DX: Z12.2 Encounter for screening for malignant neoplasm of respiratory organs (principal); Z87.891 Personal history of nicotine dependence
CPT/HCPCS: 71271

== ENCOUNTER → 2024-07-08 12:51 | Outpatient (BNV) | payer OTHER, SELFPAY | PROVIDERS: PCP Internal Medicine; Visit Provider Nuclear Medicine | DX: Z87.891 Personal history of nicotine dependence (principal) | CPT/HCPCS: 71271 ==

== ENCOUNTER 2024-09-07 06:09 | Outpatient (REF) | payer OTHER, SELFPAY ==
[2024-09-07 06:47] LABS: MANUAL DIFF FLAG NO
[2024-09-07 07:20] LABS: Appearance Urine Clear; Glucose Urine UA Negative (Negative); PH 8.0 (5.0-9.0); Specific Gravity - Urine 1.010 (1.005-1.025); UMIC TRIGGER UA YES
[2024-09-07 07:24] LABS: Hematocrit 42.4 % (37.0-47.0); Hemoglobin 14.5 g/dl (12.0-16.0); Imm Gran Abs Auto 0.05 X10*3/uL (0.00-0.03); Imm Gran Pct Auto 0.5 % (0.0-0.4); Lymphocytes Absolute Auto 2.8 X10*3/uL (1.2-4.9); Mean Corpuscular HGB Conc 34.2 g/dl (31.0-35.0); Mean Corpuscular Hemoglobin 29.5 pg (27.0-33.0); Mean Corpuscular Volume 86.4 fL (80.0-98.0); NRBC Abs Auto 0.000 X10*3/uL (0.0-0.012); NRBC Pct Auto 0.0 /100WBC (0.0-0.2); Platelet Count 248 X10*3/uL (160-400); Red Blood Count 4.91 X10*6/uL (4.20-5.50); White Blood Count 9.2 X10*3/uL (4.8-10.8)
[2024-09-07 07:50] LABS: Total Protein Urine Random < 7 mg/dL (<12)
[2024-09-07 08:00] LABS: Alanine Aminotransferase 50 U/L (0-31); Albumin Level 4.8 g/dL (3.5-5.0); Alkaline Phosphatase 60 U/L (39-117); Anion Gap 12 (12-20); Aspartate Amino Transferase 40 U/L (5-31); Blood Urea Nitrogen 16 mg/dL (9-16); Calcium 9.9 mg/dL (8.4-10.2); Carbon Dioxide 25 mmol/L (22-29); Chloride 107 mmol/L (96-108); Estimated Glomerular Filt Rate > 60; Potassium 4.8 mmol/L (3.3-5.1); Sodium 139 mmol/L (135-145); Total Protein 7.7 g/dL (6.5-8.0)
[2024-09-11 17:39] LABS: Vitamin D 25-OH, D2 <4 ng/mL; Vitamin D 25-OH, D3 30 ng/mL; Vitamin D 25-OH, Total 30 ng/mL (30-100)
== END 2024-09-07 06:10 | disposition home or self-care (01) ==
LOC: HO.LAB 06:09
PROVIDERS: PCP Internal Medicine; Visit Provider Student in an Organized Health Care Education/Training Program
DX: M32.19 Other organ or system involvement in systemic lupus erythematosus (principal); E55.9 Vitamin D deficiency, unspecified
CPT/HCPCS: 36415; 80053; 81001; 82306; 82570; 84156; 85025; 85652; 86140; 86160; 86225

== ENCOUNTER 2024-09-09 06:08 | Outpatient (REF) | payer OTHER, SELFPAY ==
--- OUTSIDE RECORDS SUMMARY | 2024-09-09 06:10 | XMS_ITS | Clinical Summary ---
Author Organization [facility] [employer] Address [address] [place] [address] Care Team Providers Care Video Software Engineer Name Role Phone Unavailable Primary Care Provider [...] 1960 FIT 1960 FOBT 1960 Sigmoidoscopy 1960 Disability Screening 1960 Alcohol/Substance Use Screening 1972 Tobacco Screening 1972 DTaP/Tdap/Td Vaccines (1 - Tdap) 02/16/1979 Pap Smear 02/16/1981 Cervical Cancer Screening 02/16/1990 HPV/Cotest 02/16/1990 Mammogram 2000 Pneumococcal Vaccine: 50+ Ye ars (1 of 1 - PCV) 02/16/2010 Zoster Vaccines (1 of 2) 02/16/2010 COVID-19 Vaccine (1 - 2023-2 5 season) 2023 Influenza Vaccine (#1) 2024 RSV Patients and Pa tients Aged 60 [...] patient's age to complete this topic Meningococcal B Vaccine Aged Out No l onger eligible based on patient's age to complete [...]
--- OUTSIDE RECORDS SUMMARY | 2024-09-09 06:10 | XMS_ITS | Clinical Summary ---
Author Organization [facility] Address [address] [place] [address] Care Team Providers Care Bindery Machine Operator Name Role Phone Unavailable Primary Care Provider [...]
[2024-09-09 07:58] LABS: Appearance Urine Clear; Glucose Urine UA Negative (Negative); PH 7.0 (5.0-9.0); Specific Gravity - Urine 1.010 (1.005-1.025)
[2024-09-09 08:12] LABS: Alanine Aminotransferase 71 U/L (0-31); Albumin Level 4.7 g/dL (3.5-5.0); Alkaline Phosphatase 63 U/L (39-117); Anion Gap 12 (12-20); Aspartate Amino Transferase 62 U/L (5-31); Blood Urea Nitrogen 13 mg/dL (9-16); Calcium 9.4 mg/dL (8.4-10.2); Carbon Dioxide 27 mmol/L (22-29); Chloride 103 mmol/L (96-108); Cholesterol 211 mg/dL (<200); Estimated Glomerular Filt Rate > 60; HDL Cholesterol 67 mg/dL (>40); Potassium 4.9 mmol/L (3.3-5.1); Sodium 137 mmol/L (135-145); Total Protein 7.3 g/dL (6.5-8.0); Triglycerides 159 mg/dL (<150)
== END 2024-09-09 06:09 | disposition home or self-care (01) ==
LOC: HO.LAB 06:08
PROVIDERS: PCP Internal Medicine; Visit Provider Internal Medicine
DX: R30.0 Dysuria (principal); E78.00 Pure hypercholesterolemia, unspecified
CPT/HCPCS: 36415; 80053; 80061; 81003; 84443

== ENCOUNTER 2024-09-11 15:54 | Outpatient (AMB) | payer OTHER, SELFPAY ==
--- OUTSIDE RECORDS SUMMARY | 2024-09-11 15:57 | XMS_ITS | Clinical Summary ---
Author Organization [facility] Address [address] [place] [address] Care Team Providers Care Android Developer Name Role Phone Unavailable Primary Care Provider [...]
--- OUTSIDE RECORDS SUMMARY | 2024-09-11 15:57 | XMS_ITS | Clinical Summary ---
Author Organization [facility] [employer] Address [address] [facility] [address] [place] [address] Care Team Providers Care Refrigeration Brazer/Solderer Name Role Phone Unavailable Primary Care Provider [...]
[2024-09-11 16:08] VITALS: BP 150/82; PULSE 77; O2SAT 97; BMI 24.1
--- NOTE | 2024-09-11 16:08 | A.OFFPC_ITS ---
Vital Signs 09/11/24 16:08 Height 5 ft 3 in Weight 136 lb BMI 24.1 BP 150/82 H Blood Pressure Location Lt brachial Position Sitting Pulse 77 Pulse Source Pulse Oximeter Pulse Oximetry (%) 97 Oxygen Delivery Method Room Air Intake Visit Reasons: Annual physical Alterations Expert Required: No Accompanied by: Self / Same As Patient Allergies gabapentin (GABAPENTIN) Allergy (Intermediate, Verified 09/13/24 19:58) GI UPSET acetaminophen (From Vicodin) Allergy (Unknown, Verified 09/13/24 19:58) Pruritis lorazepam (Ativan) Allergy (Unknown, Verified 09/13/24 19:58) Unknown hydrocodone (From VICODIN) Adverse Reaction (Mild, Verified 09/13/24 19:58) GI UPSET Medication List - Last Reconciled 09/13/24 by Raleigh Riddle MD acetaminophen (Tylenol) 650 mg PO Q6H PRN amlodipine 2.5 mg PO DAILY 90 days betamethasone dipropionate 0.05% topical bisacodyl (Dulcolax (bisacodyl)) 10 mg (2 x 5 mg) PO ONCE 5 days buspirone 7.5 mg PO BID cholecalciferol (vitamin D3) 25 mcg PO DAILY 90 days cyclobenzaprine 10 mg PO TID PRN 30 days hydrocortisone valerate 0.2% topical BID hydroxychloroquine 300 mg (1.5 x 200 mg) PO DAILY levothyroxine 100 mcg PO QAM 90 days omeprazole 20 mg PO DAILY polyethylene glycol 3350 (Miralax) 17 grams PO DAILY 1 day sennosides-docusate sodium 8.6-50 mg (Senna with Docusate Sodium) 2 tab-caps orally twice a week at bedtime 60 days valacyclovir 1,000 mg PO BID Tobacco use date assessed: 09/11/24 Fall risk assessment: No Falls in past year Last assessed Fall Risk: 09/11/24 Dental Screening Dental Screen Date: 09/11/24 Did you have a dental visit in the last 12 months?: Yes Did you have a dental problem in the last 6 months where you did not have access to dental care?: No Was dental information given to patient?: Patient has dentist HPI Annual physical HPI Details Patient comes in today for her annual physical examination States that she feels okay She denies any headaches or dizziness Denies any chest pains, no shortness of breath No nausea/vomiting, no abdominal pain No change in bowel habits noted She denies any acute urinary symptoms She had her follow-up labs done a couple of days ago - to discuss her results She is currently up-to-date with all of her cancer screenings - she is due for her repeat colonoscopy this year and is scheduled to see Dr. Vidal in November 2023 for her follow-up visit with GI She is scheduled for her annual mammogram in January 2025 She last had yearly gynecology appointment in June 2024 and is scheduled for his next gynecology appointment and Pap smear in June of 2025 Her last BMD was done in January 2023 [facility] Medical History (Updated 09/13/24 @ 20:25 by Raleigh Riddle MD) Migraine Personal history of nicotine dependence Low back pain Hypersomnia Nocturnal leg cramps Osteopenia Mixed hyperlipidemia Breast calcification, right Cutaneous lupus erythematosus Insomnia Cervical spinal stenosis Fibromyalgia GERD without esophagitis Vitamin D deficiency Tinea corporis Acquired hypothyroidism Depression Anxiety Lumbar degenerative disc disease Right shoulder pain Myalgia Arthralgia Benign essential hypertension Pure hypercholesterolemia Surgical History Hx of total ankle replacement Hx of endoscopy History of colonoscopy (~10/01/13) History of total ankle replacement Family History Father Hypertension Mother Stroke Cancer Diabetes Rheumatoid arthritis SLE (systemic lupus erythematosus) Paternal Grandmother Colon cancer Other Mental health problem Substance abuse Social History Household Members: Children Household Members Other:: Son Housing: Apartment Alcohol intake: current Alcohol intake frequency: does not drink Patient Tobacco Use Status: Former Tobacco user Tobacco use type: Cigarette e-Cigarette/Vaping Use: Never Used Second Hand Smoke Exposure: Yes Substance Use Type: Marijuana service: No Current occupational status: retired and disabled Sexual orientation: Straight/Heterosexual Gender identity: Female Cognitive needs: No Hearing needs: No Vision needs: Yes Questionnaire PHQ-9 Over the last 2 weeks, how often have you been bothered by any of the following problems? 1. Little interest or pleasure in doing things: not at all 2. Feeling down, depressed, or hopeless: not at all 3. Trouble falling or staying asleep, or sleeping too much: not at all 4. Feeling tired or having little energy: not at all 5. Poor appetite or overeating: not at all 6. Feeling bad about yourself - or that you are a failure or have let yourself or your family down: not at all 7. Trouble concentrating on things, such as reading the newspaper or watching television: not at all 8. Moving or speaking so slowly that other people could have noticed. Or the opposite - being so fidgety or restless that you have been moving around a lot more than usual: not at all 9. Thoughts that you would be better off or of hurting yourself in some way: not at all Total score: 0 Depression Screening Interpretation: Negative Depression Screening Done: Yes 28758 - PHQ-9 Billing: Yes Source: Developed by Drs. Michael Yao, Francine Godinez, Sriram Knott and colleagues, with an educational pramod from [employer]. Thrive Questionnaire Date Thrive assessed: 09/11/24 I am a: Patient What is your living situation today?: I have a steady place to live Within the past 12 months, did the food you bought not last and you didn't have the money to get more?: Never true Within the past 12 months, did you worry whether your food would run out before you got money to buy more?: Never true Do you have trouble paying for medicines?: No Do you have trouble getting transportation to medical appointments?: No Do you have trouble paying your heating and electricity bill?: No Do you have trouble taking care of your child, family member or friend?: No Do you have trouble with day-to-day activities such as bathing, preparing meals, shopping, managing finances, etc.?: No Are you currently unemployed and looking for a job?: No Are you interested in more education?: No Please select the resources that you would like help with: None Currently or been in a relationship where the following occur: No concerns reported THRIVE Score: 0 AUDIT C Alcohol Use Questionnaire (AUDIT-C) 1. How often do you have a drink containing alcohol?: Never 3. How often do you have six or more drinks on one occasion?: Never Total Score: 0 Score Reviewed/Action Taken: Yes MARGARITO-7 AMB Questionnaire MARGARITO-7 Date MARGARITO - 7 assessed: 09/11/24 Feeling nervous, anxious, or on edge: 0 = Not at all Not being able to stop or control worryin = Not at all Worrying too much about different things: 0 = Not at all Trouble relaxin = Not at all Being so restless that it is hard to sit still: 0 = Not at all Becoming easily annoyed or irritable: 0 = Not at all Feeling afraid as if something awful might happen: 0 = Not at all Total MARGARITO-7 score (0-4 normal; 5-9 mild; 10-14 moderate; 15-21 severe): 0 Source: Developed by Drs. Michael Yao, Francine Godinez, Sriram Knott and colleagues, with an educational pramod from [employer]. Review of Systems Const Denies chills, Denies fatigue, Denies fever(s), Denies headache(s), Denies malaise and Denies weakness Eyes Denies blurry vision, Denies change in vision, Denies irritation and Denies itchy eyes ENT Denies dysphagia, Denies dizziness, Denies otalgia, Denies headache(s), Denies nasal congestion, Denies neck pain, Denies odynophagia and Denies sore throat Card Denies chest pain, Denies rapid heart rate, Denies irregular heart rhythm, Denies palpitations and Denies dyspnea Resp Denies chest congestion, Denies cough, Denies dyspnea and Denies wheezing GI Denies abdominal pain, Denies bloating, Denies constipation, Denies dysphagia, Denies heartburn, Denies diarrhea, Denies nausea, Denies odynophagia and Denies vomiting Denies hematuria, Denies urinary frequency, Denies dysuria and Denies urinary urgency Musc Reports back pain (over the mid to lower back and lately on the right midthoracic area), Reports myalgias (diffuse), Reports arthralgias (on and off, involving multiple joints and increased lately-see HPI), Denies neck pain and Reports stiffness Skin/Breast Denies change in pigmentation, Denies lesions, Denies rash and Denies unusual bruising Neuro Denies dizziness, Denies headache(s), Denies paresthesias and Denies weakness Psych Denies anxiety and Denies depression Endo Denies fatigue and Denies palpitations Torres/Lymph Denies easy bruising Aller/Immun Denies itchy eyes and Denies wheezing Physical exam (Primary Care) Vital Signs: Last Vital Signs Pulse 77 09/11/24 16:08 BP 150/82 H 09/11/24 16:08 Pulse Ox 97 09/11/24 16:08 Oxygen Delivery Method Room Air 09/11/24 16:08 BMI result Body Mass Index 24.1 Tobacco/Smoking Status: Tobacco use Status Tobacco use date assessed 09/11/24 09/11/24 16:14 Patient Tobacco Use Status Former Tobacco user 09/11/24 16:14 Tobacco use type Cigarette 09/11/24 16:14 e-Cigarette/Vaping Use Never Used 09/11/24 16:14 PHQ-9: PHQ-9 Score PHQ-9: Total score 0 09/11/24 16:39 Depression Screening Interpretation: Negative Thrive Assessment: Date of Thrive Assessment Date Thrive assessed 09/11/24 09/11/24 16:14 Currently or been in a relationship where the following occur: No concerns reported Const General: no acute distress, alert and awake Orientation/consciousness: patient oriented x3 HENMT Head: Yes normocephalic and Yes atraumatic Ears: external ears normal, TM's normal bilaterally and EAC's normal General nose exam: No nasal discharge present Face and sinus: Yes normal facial exam and Yes sinuses nontender Teeth and gingiva: dentition normal Throat: Yes posterior oropharynx normal and Yes tonsils normal (no TP congestion) Eyes Eyelids: Yes eyelids normal Conjunctivae: conjunctivae normal Pupils: Equal, round and reactive pupils present EOM: EOMs intact bilaterally Neck Neck: Yes no lymphadenopathy and Yes supple Thyroid: Thyroid normal Resp Auscultation: clear to auscultation bilaterally, no rales and no wheezes Cardio Rate: regular rate Rhythm: regular rhythm Heart sounds: no murmurs GI Palpation (GI): Soft to palpation, nontender and No hepatosplenomegaly present Auscultation: normal bowel sounds General: Yes no CVA tenderness Back/Spine/Pelvis Back: no CVA tenderness Cervical Spine: cervical muscular tenderness (mild) and Cervical spine tenderness Thoracic/Lumbar Spine: paraspinal muscle tenderness bilaterally in the upper thoracic, in the mid thoracic, in the lower thoracic, in the upper lumbar, in the mid lumbar and in the lower lumbar and lumbar spinal tenderness Skin Lesions: no lesions Rashes: no rashes Neuro General: patient oriented x3, moves all extremities, no focal motor deficits and CN's II-XI intact bilaterally Cranial nerves: Yes Equal, round and reactive pupils present Cognition (Neuro): normal cognition Gait exam (Neuro): Normal gait present Extrem Other: (+) tenderness over multiple joints bilaterally, including shoulders, elbows, hands and knees General: Yes no clubbing, cyanosis or edema Results Reviewed Results Reviewed: Laboratory Tests 09/07/24 09/09/24 09/09/24 06:44 06:18 06:22 WBC 9.2 Hgb 14.5 Hct 42.4 Plt Count 248 ESR 4 Sodium 137 Potassium 4.9 Creatinine 0.81 Estimated GFR > 60 Fasting Glucose 86 Calcium 9.4 AST 62 H ALT 71 H Triglycerides 159 H Cholesterol 211 H LDL Cholesterol, Calc 113 H HDL Cholesterol 67 TSH 3.76 Ur Specific [place] 1.010 Urine Protein Negative Urine Glucose (UA) Negative Urine Blood Negative Urine Nitrite Negative Ur Leukocyte Esterase Negative Coding Level of Care Code Est Pt Prev Care 40-64y(53311) Diagnoses Annual physical exam Z00.00 Cutaneous lupus erythematosus L93.2 Fibromyalgia M79.7 Arthralgia, unspecified joint M25.50 Joint pain location: unspecified Lung bullae J43.9 Mixed hyperlipidemia E78.2 Benign essential hypertension I10 Acquired hypothyroidism E03.9 Cervical spinal stenosis M48.02 Degeneration of intervertebral disc of lumbar region with discogenic back pain M51.360 Disc-related pain type: discogenic back pain only Osteopenia, unspecified location M85.80 Osteopenia location: unspecified Migraine without status migrainosus, not intractable, unspecified migraine type G43.909 Migraine type: unspecified Status migrainosus presence: without status migrainosus Intractability: not intractable Vitamin D deficiency E55.9 GERD without esophagitis K21.9 Insomnia, unspecified type G47.00 Insomnia type: unspecified Anxiety F41.9 Episode of recurrent major depressive disorder, unspecified depression episode severity F33.9 Depression Type: major depressive disorder Major depression recurrence: recurrent Active/Remission status: currently active Major depression episode severity: unspecified Additional Codes PHQ-9 - 04342 - PHQ-9 Billing: Yes ([id number]) Assessment & Plan Assessment & Plan (1) Annual physical exam: Code(s): Z00.00 - Encounter for general adult medical examination without abnormal findings Category: Medical Plan: Results of her labs done a couple of days ago reviewed and discussed with patient She is currently up-to-date with all of her cancer screenings - she is due for her repeat colonoscopy this year and is scheduled to see Dr. Vidal in November 2023 for her follow-up visit with GI She is scheduled for her annual mammogram in January 2025 She last had yearly gynecology appointment in June 2024 and is scheduled for his next gynecology appointment and Pap smear in June of 2025 Her last BMD was done in January 2023 (2) Cutaneous lupus erythematosus: Code(s): L93.2 - Other local lupus erythematosus Category: Medical Plan: Continue Hydroxychloroquine 300 mg QD Follow up with rheumatology as scheduled Have emphasized to patient again the importance of avoidance of sun exposure (3) Fibromyalgia: Code(s): M79.7 - Fibromyalgia Category: Medical Plan: Patient is again encouraged to continue to stay active and exercise regularly She has been referred to physical therapy in the past when needed with (+) slight improvement of her symptoms Patient also continues to follow up with [facility] for pain management and trigger point injections She follows up also with [facility] (Dr. Rodriguez) regularly - MS has been previously ruled out in her case Continue Cyclobenzaprine 5 mg TID PRN (4) Arthralgia: Code(s): M25.50 - Pain in unspecified joint Category: Medical Qualifiers: Joint pain location: unspecified Qualified Code(s): M25.50 - Pain in unspecified joint Plan: Follow up with rheumatology as scheduled - she has been diagnosed with polyarthralgia in addition to her fibromyalgia and her cutaneous lupus (5) Lung bullae: Code(s): J43.9 - Emphysema, unspecified Category: Medical Plan: She has a right lower lobe pulmonary cyst or bulla measuring about 1.1 cm seen incidentally on her abdominal / pelvic CT done at [facility] back in 01/2016 She is concerned as to why there was no mention of this in her recent low dose CT lung screening, which revealed an 8 mm nodular density seen in the superior segment of the right lower lobe that they say is likely benign, as well as (+) minimal changes of emphysema. A repeat low dose CT lung screening was recommended in [address] lung screening in June 2024 came out okay - benign appearance. Recommend to continue annual screening with low dose chest CT in 12 months. (6) Mixed hyperlipidemia: Code(s): E78.2 - Mixed hyperlipidemia Category: Medical Plan: Results of her labs done a couple of days ago reviewed and discussed with mayra leona Reinforce low-cholesterol diet Will recheck her labs and fasting lipids in 4 months for follow-up (7) Benign essential hypertension: Code(s): I10 - Essential (primary) hypertension Category: Medical Plan: Reinforced low sodium diet - goal is systolic BP of 120 mm or less Continue Amlodipine 2.5 mg QD (8) Acquired hypothyroidism: Code(s): E03.9 - Hypothyroidism, unspecified Category: Medical Plan: Her TFTs were normal on her recent labs Continue Levothyroxine 100 mcg QD Will have her recheck her TFTs in 4 months for follow-up (9) Cervical spinal stenosis: Comment: (+) cervical radiculopathy, worse on the left side Code(s): M48.02 - Spinal stenosis, cervical region Category: Medical Plan: Cervical spine imaging done a couple of years ago revealed (+) neuroforaminal stenosis, most pronounced at C6-C7 and greater on the left than the right side Follow-up with [facility] as scheduled for pain management (10) Lumbar degenerative disc disease: Code(s): M51.36 - Other intervertebral disc degeneration, lumbar region Category: Medical Qualifiers: Disc-related pain type: discogenic back pain only Qualified Code(s): M51.360 - Other intervertebral disc degeneration, lumbar region with discogenic back pain only Plan: Reinforced activity and weight lifting restrictions [place] [facility] [place] showed a right-sided foraminal disc osteophyte protrusion at the L4-L5 level that contacts the right L4 nerve root as well as multilevel degenerative changes She was referred to and seen by Neurosurgery and was advised that there is no surgical indication at the time; she was then referred to [facility] who recommended PT and OT only as needed Follow up with [facility] as scheduled (11) Osteopenia: Code(s): M85.80 - Other specified disorders of bone density and structure, unspecified site Category: Medical Qualifiers: Osteopenia location: unspecified Qualified Code(s): M85.80 - Other specified disorders of bone density and structure, unspecified site Plan: Patient is advised that her BASELINE BMD done in January 2023 revealed (+) osteopenia based on the lowest T-score value of -1.4 in the lumbar spine; her T- score in the left femoral neck was also low at -1.2 Have recommended to patient to make sure she stays active and continue to try to exercise regularly, and to also contune taking OTC Vitamin D and Calcium daily Patient would like to hold off on Rx for Tx for now, and will recheck her BMD in 2 to 3 years for follow up (12) Migraine: Code(s): G43.909 - Migraine, unspecified, not intractable, without status migrainosus Category: Medical Qualifiers: Migraine type: unspecified Status migrainosus presence: without status migrainosus Intractability: not intractable Qualified Code(s): G43.909 - Migraine, unspecified, not intractable, without status migrainosus Plan: Reinforced again avoidance of any potential migraine triggers (13) Vitamin D deficiency: Code(s): E55.9 - Vitamin D deficiency, unspecified Category: Medical Plan: Continue Vitamin D3 1000 units QD (14) GERD without esophagitis: Code(s): K21.9 - Gastro-esophageal reflux disease without esophagitis Category: Medical Plan: Dietary restrictions reinforced Continue Omeprazole 20 mg QD (15) Insomnia: Code(s): G47.00 - Insomnia, unspecified Category: Medical Qualifiers: Insomnia type: unspecified Qualified Code(s): G47.00 - Insomnia, unspecified Plan: Sleep hygiene reinforced She used to take Zolpidem in the past but has been only taking OTC Melatonin 6 mg Q HS PRN for the past year or two with good results (16) Anxiety: Code(s): F41.9 - Anxiety disorder, unspecified Category: Medical Plan: Continue Lorazepam 0.5 mg QD PRN and Buspirone 7.5 mg QD (17) Depression: Code(s): F32.9 - Major depressive disorder, single episode, unspecified Category: Medical Qualifiers: Depression Type: major depressive disorder Major depression recurrence: recurrent Active/Remission status: currently active Major depression episode severity: unspecified Qualified Code(s): F33.9 - Major depressive disorder, recurrent, unspecified Plan: Patient could not tolerate multiple antidepressants in the past Has been doing a lot better since [place] [facility] Follow-up with Psychiatry as scheduled Plan Follow up in 4 months Orders: Orders Comprehensive [place]. Panel Fast 4 Months E78.00 - Pure hypercholesterolemia, unspecified Thyroid Stimulating Hormone 4 Months E03.9 - Hypothyroidism, unspecified Complete Blood Count Auto Diff 4 Months D64.9 - Anemia, unspecified Lipid Panel 4 Months E78.00 - Pure hypercholesterolemia, unspecified Free T4 (Free Thyroxine) 4 Months E03.9 - Hypothyroidism, unspecified
== END 2024-09-11 16:47 | disposition home or self-care (01) ==
LOC: HO.HMCH 15:55
PROVIDERS: PCP Internal Medicine; Visit Provider Internal Medicine
DX: Z00.00 Encounter for general adult medical examination without abnormal findings (principal); L93.2 Other local lupus erythematosus; J43.9 Emphysema, unspecified; M79.7 Fibromyalgia; M25.50 Pain in unspecified joint; E78.2 Mixed hyperlipidemia; I10 Essential (primary) hypertension; E03.9 Hypothyroidism, unspecified; M48.02 Spinal stenosis, cervical region; M51.360 Other intervertebral disc degeneration, lumbar region with discogenic back pain only; M85.80 Other specified disorders of bone density and structure, unspecified site; G43.909 Migraine, unspecified, not intractable, without status migrainosus

== ENCOUNTER → 2024-09-11 15:54 | Outpatient (BNVA) | payer OTHER, SELFPAY | PROVIDERS: PCP Internal Medicine; Visit Provider Internal Medicine | DX: Z00.00 Encounter for general adult medical examination without abnormal findings (principal); L93.2 Other local lupus erythematosus; M79.7 Fibromyalgia; M25.50 Pain in unspecified joint; J43.9 Emphysema, unspecified; E78.2 Mixed hyperlipidemia; I10 Essential (primary) hypertension; E03.9 Hypothyroidism, unspecified; M48.02 Spinal stenosis, cervical region; M51.360 Other intervertebral disc degeneration, lumbar region with discogenic back pain only; M85.80 Other specified disorders of bone density and structure, unspecified site; G43.909 Migraine, unspecified, not intractable, without status migrainosus; E55.9 Vitamin D deficiency, unspecified; K21.9 Gastro-esophageal reflux disease without esophagitis; G47.00 Insomnia, unspecified; F41.9 Anxiety disorder, unspecified; F33.9 Major depressive disorder, recurrent, unspecified; Z79.899 Other long term (current) drug therapy; Z13.31 Encounter for screening for depression; Z13.39 Encounter for screening examination for other mental health and behavioral disorders | CPT/HCPCS: 96127; 99396 ==

== ENCOUNTER 2024-09-17 06:04 | Outpatient (REF) | payer OTHER, SELFPAY ==
--- OUTSIDE RECORDS SUMMARY | 2024-09-17 06:05 | XMS_ITS | Clinical Summary ---
Author Organization [facility] Address [address] [place] [address] Care Team Providers Care Medical Collections Name Role Phone Unavailable Primary Care Provider [...]
== END 2024-09-17 06:05 | disposition home or self-care (01) ==
LOC: HO.LAB 06:04
PROVIDERS: PCP Internal Medicine; Visit Provider Internal Medicine
DX: R53.83 Other fatigue (principal); R53.1 Weakness
CPT/HCPCS: 36415; 82533

== ENCOUNTER 2024-09-24 08:15 | Outpatient (AMB) | payer OTHER, SELFPAY ==
--- NOTE | 2024-09-24 08:16 | A.OFFVIS_ITS ---
Vital Signs 09/24/24 08:17 Height 5 ft 3 in Weight 135 lb BMI 23.9 BP 140/90 H Blood Pressure Location Rt brachial Position Sitting Pulse 70 Pulse Source Pulse Oximeter Pulse Oximetry (%) 99 Oxygen Delivery Method Room Air Intake Visit Reasons: SLE Intake Note: Patient presents for SLE. Allergies gabapentin (GABAPENTIN) Allergy (Intermediate, Verified 09/24/24 08:24) GI UPSET acetaminophen (From Vicodin) Allergy (Unknown, Verified 09/24/24 08:24) Pruritis lorazepam (Ativan) Allergy (Unknown, Verified 09/24/24 08:24) Unknown hydrocodone (From VICODIN) Adverse Reaction (Mild, Verified 09/24/24 08:24) GI UPSET HPI HPI SLE: Details: She feels well at this time. She has cyclic flares but at this time she feels lupus is controlled. She has weakness in legs when going up stairs off an on throughout the day. Walks 2.5 miles daily. Eats well. Oral ulcer 3 weeks ago. She has flares that involves migraines, hair loss, ulcers in her mouth, rash, joint pain muscle pain. Right 2nd toe was swollen 2 years ago in a nodule has formed. She has chronic foot pain. Sometimes her hands hurts. She has developed nodules in her hands. She has had urinary incontinence with dribbling. She has been experiencing dysregulation of her body temperature and feels very hot at times. She is on levothyroxine 100 mcg daily, which has not been adjusted in a year. She sees her PCP for thyroid disease management. [facility] Medical History Migraine Personal history of nicotine dependence Low back pain Hypersomnia Nocturnal leg cramps Osteopenia Mixed hyperlipidemia Breast calcification, right Cutaneous lupus erythematosus Insomnia Cervical spinal stenosis Fibromyalgia GERD without esophagitis Vitamin D deficiency Tinea corporis Acquired hypothyroidism Depression Anxiety Lumbar degenerative disc disease Right shoulder pain Myalgia Arthralgia Benign essential hypertension Pure hypercholesterolemia Surgical History Hx of total ankle replacement Hx of endoscopy History of colonoscopy (~10/01/13) History of total ankle replacement Family History (Updated 09/24/24 @ 08:25 by Katherine Flanagan CMA) Father Hypertension Mother Stroke Cancer Diabetes Rheumatoid arthritis SLE (systemic lupus erythematosus) Paternal Grandmother Colon cancer Other Mental health problem Substance abuse Social History Household Members: Children Household Members Other:: Son Housing: Apartment Alcohol intake: current Alcohol intake frequency: does not drink Patient Tobacco Use Status: Former Tobacco user Tobacco use type: Cigarette e-Cigarette/Vaping Use: Never Used Second Hand Smoke Exposure: Yes Substance Use Type: Marijuana service: No Current occupational status: retired and disabled Sexual orientation: Straight/Heterosexual Gender identity: Female Cognitive needs: No Hearing needs: No Vision needs: Yes Physical Exam Vital Signs: Last Vital Signs Pulse 70 09/24/24 08:17 BP 140/90 H 09/24/24 08:17 Pulse Ox 99 09/24/24 08:17 Oxygen Delivery Method Room Air 09/24/24 08:17 BMI result Body Mass Index 23.9 Const Other: General: Comfortable CVS: RRR Respiratory: clear to auscultation bilaterally. Good respiratory effort Skin: Erythematous spots on right side of her face sparingly MSK: Tender right 2nd MCP. She has Heberden nodes and Augusto's nodes present in hands. Normal range of motion of upper extremities. Left ankle is fused. Rest of lower extremity has normal range of motion. She has a nodule that is tender on right 2nd DIPJ foot. Power 5/5 upper extremities and lower extremities. Assessment & Plan Assessment & Plan (1) SLE (systemic lupus erythematosus): Comment: She has serological remission (08/2024 labs) on hydroxychloroquine but continues to have cyclic flares. At this visit, her symptoms from lupus are controlled. She has clinical osteoarthritis affecting her hands and feet. I will further evaluate with x-rays. Rheumatology history: dx 04/19 (+ ALEJANDRINA 1:160, cutaneous SLE, fatigue, low C3 & C4 when in a flare of hair loss, rash, polyarthralgias, myalgias (thigh), alessandra tosensitivity, headaches, costochondritis. HCQ started 03/2022- Code(s): M32.9 - Systemic lupus erythematosus, unspecified Category: Medical Qualifiers: Systemic lupus erythematosus organ involvement: other Systemic lupus erythematosus type: unspecified Qualified Code(s): M32.19 - Other organ or system involvement in systemic lupus erythematosus Plan: Continue hydroxychloroquine 300 mg daily. Requesting last eye exam for hydroxychloroquine surveillance She will make a log of her symptoms when she is flaring for discussion next visit with consideration of optimizing her immunosuppressive regimen for better control of her flares I have asked her to follow up with PCP for her symptom of feeling hot at times, which may be related to her thyroid disease. We discussed goal-directed therapy with a targeted TSH of 2 for those with hypothyroidism to try to better manage her clinical symptoms, which she will discuss with PCP I recommended that she see urogynecology for management of urinary incontinence. We discussed pelvic floor exercises Bilateral hand and feet x-rays RTC 4 months (2) Encounter for monitoring of hydroxychloroquine therapy: Comment: Eye exam 05/2023 OK Code(s): Z51.81 - Encounter for therapeutic drug level monitoring; Z79.899 - Other nursing home (current) drug therapy Category: Medical Plan: Continue to follow-up regularly with guide changer See above Orders: Orders XR Foot Ha 3V Today M32.19 - Other organ or system involvement in systemic lupus erythematosus XR Hand Bilat min 3v Today M32.19 - Other organ or system involvement in systemic lupus erythematosus Coding Level of Care Code Est Pt Level 4 (78656) Complex EM visit Add On G2211 Diagnoses Systemic lupus erythematosus with other organ involvement, unspecified SLE type M32.19 Systemic lupus erythematosus organ involvement: other Systemic lupus erythematosus type: unspecified Encounter for monitoring of hydroxychloroquine therapy Z51.81; Z79.899 Time Spent (min) 30
[2024-09-24 08:17] VITALS: BP 140/90; PULSE 70; O2SAT 99; BMI 23.9
--- OUTSIDE RECORDS SUMMARY | 2024-09-24 08:22 | XMS_ITS | Clinical Summary ---
Author Organization [facility] Address [address] [place] [address] Care Team Providers Care Quality Control Tech Raw Materials Name Role Phone Unavailable Primary Care Provider [...]
--- OUTSIDE RECORDS SUMMARY | 2024-09-24 08:22 | XMS_ITS | Clinical Summary ---
Author Organization [facility] [employer] Address [address] [place] [address] Care Team Providers Care Drum Dyeing Machine Operator Name Role Phone Unavailable Primary [...]
== END 2024-09-24 09:07 | disposition home or self-care (01) ==
LOC: HO.RHES 08:16
PROVIDERS: PCP Internal Medicine; Visit Provider Internal Medicine Rheumatology
DX: M32.19 Other organ or system involvement in systemic lupus erythematosus (principal); Z51.81 Encounter for therapeutic drug level monitoring; Z79.899 Other long term (current) drug therapy
CPT/HCPCS: 99214

== ENCOUNTER → 2024-09-24 08:15 | Outpatient (BNVA) | payer OTHER, SELFPAY | PROVIDERS: PCP Internal Medicine; Visit Provider Internal Medicine Rheumatology | DX: M32.19 Other organ or system involvement in systemic lupus erythematosus (principal); Z51.81 Encounter for therapeutic drug level monitoring; Z79.899 Other long term (current) drug therapy | CPT/HCPCS: 99212 ==

== ENCOUNTER 2024-12-29 05:57 | Outpatient (REF) | payer OTHER, SELFPAY ==
--- NOTE | ~2024-12-29 | XR_ITS ---
EXAMINATION: XR FOOT 3 OR MORE VIEWS BILATERAL HISTORY: M32.19 - Other organ or system involvement in systemic lupus erythematosus COMPARISON: Comparison is made with the prior examination of the right toes dated 09/04/2021. FINDINGS: Six views of the bilateral feet are submitted. The patient is status post left tibiotalar arthroplasty. Osseous mineralization is normal. There is no fracture or dislocation. There is degenerative change of the left talonavicular joint. The soft tissues are unremarkable. XR/XR Foot Ha 3V IMPRESSION: Status post left tibiotalar arthroplasty. Osteoarthritis of the left talonavicular joint. Unremarkable examination of the right foot. Electronically signed by: Michael Cruz MD 12/29/2024 07:10 AM [facility]
--- NOTE | ~2024-12-29 | XR_ITS ---
EXAMINATION: XR HAND 3 VIEWS BILATERAL HISTORY: M32.19 - Other organ or system involvement in systemic lupus erythematosus COMPARISON: There are no prior studies available for comparison. FINDINGS: Six views of the bilateral hands are submitted. Osseous mineralization is normal. There is no fracture or dislocation. The joint spaces are preserved there are scattered lucencies in the heads of the metacarpals, proximal phalanges, and middle phalanges which may represent cysts. No discrete erosions are identified. The soft tissues are unremarkable. XR/XR Hand Bilat min 3v IMPRESSION: No evidence of joint space narrowing. Electronically signed by: Michael Cruz MD 12/29/2024 07:[address] [facility]
--- OUTSIDE RECORDS SUMMARY | 2024-12-29 05:59 | XMS_ITS | Clinical Summary ---
Author Organization [facility] Address [address] [place] [address] Care Team Providers Care Wine Cellar Worker Name Role Phone Unavailable Primary Care Provider [...] Vaccine (1 of 2) 02/16/2010 COVID-19 Vaccine (1 - 2023-2 5 season) 2024 RSV Vaccine 50 years and old er and Patients (1 - 1-dose 75+ series) 02/16/2035 Hepatitis B Vaccines Aged Out No long er eligible based on patient's age to complete this topic
--- OUTSIDE RECORDS SUMMARY | 2024-12-29 05:59 | XMS_ITS | Encounter Summary ---
Author Organization [facility] [employer] [facility] Address [address] [place] [address] Care Team Providers Care Chrome Tanner Name Role Phone Unavailable Primary Care Provider [...]
--- OUTSIDE RECORDS SUMMARY | 2024-12-29 05:59 | XMS_ITS | Clinical Summary ---
Author Organization [facility] [employer] Address [address] [place] [address] Care Team Providers Care Chief Mate Name Role Phone Unavailable Primary Care Provider [...] Vaccine (1 - 2023-2 5 season) 2024 Influenza Vaccine (#1) 2024 RSV Patients and [...]
[2024-12-29 06:12] LABS: MANUAL DIFF FLAG NO
[2024-12-29 07:25] LABS: Hematocrit 41.4 % (37.0-47.0); Hemoglobin 13.8 g/dl (12.0-16.0); Imm Gran Abs Auto 0.04 X10*3/uL (0.00-0.03); Imm Gran Pct Auto 0.5 % (0.0-0.4); Lymphocytes Absolute Auto 2.9 X10*3/uL (1.2-4.9); Mean Corpuscular HGB Conc 33.3 g/dl (31.0-35.0); Mean Corpuscular Hemoglobin 28.5 pg (27.0-33.0); Mean Corpuscular Volume 85.4 fL (80.0-98.0); NRBC Abs Auto 0.000 X10*3/uL (0.0-0.012); NRBC Pct Auto 0.0 /100WBC (0.0-0.2); Platelet Count 233 X10*3/uL (160-400); Red Blood Count 4.85 X10*6/uL (4.20-5.50); White Blood Count 8.3 X10*3/uL (4.8-10.8)
[2024-12-29 07:55] LABS: Alanine Aminotransferase 55 U/L (0-31); Albumin Level 4.7 g/dL (3.5-5.0); Alkaline Phosphatase 60 U/L (39-117); Anion Gap 12 (12-20); Aspartate Amino Transferase 47 U/L (5-31); Blood Urea Nitrogen 16 mg/dL (9-16); Calcium 9.5 mg/dL (8.4-10.2); Carbon Dioxide 27 mmol/L (22-29); Chloride 103 mmol/L (96-108); Cholesterol 210 mg/dL (<200); Estimated Glomerular Filt Rate > 60; HDL Cholesterol 62 mg/dL (>40); Potassium 4.8 mmol/L (3.3-5.1); Sodium 137 mmol/L (135-145); Total Protein 7.3 g/dL (6.5-8.0); Triglycerides 162 mg/dL (<150)
[2024-12-29 08:15] LABS: Free T4 (Free Thyroxine) 0.95 ng/dL (0.71-1.85); Thyroid Stimulating Hormone 5.47 uIU/mL (0.32-4.0)
== END 2024-12-29 05:58 | disposition home or self-care (01) ==
LOC: HO.XRAY 05:57
PROVIDERS: Absent Provider Internal Medicine; PCP Internal Medicine; Visit Provider Internal Medicine Rheumatology
DX: M32.19 Other organ or system involvement in systemic lupus erythematosus (principal); E03.9 Hypothyroidism, unspecified; E78.00 Pure hypercholesterolemia, unspecified; D64.9 Anemia, unspecified
CPT/HCPCS: 36415; 73130; 73630; 80053; 80061; 84439; 84443; 85025

== ENCOUNTER → 2024-12-29 06:12 | Outpatient (BNV) | payer OTHER, SELFPAY | PROVIDERS: Absent Provider Internal Medicine; PCP Internal Medicine; Visit Provider Radiology Diagnostic Radiology | DX: M32.19 Other organ or system involvement in systemic lupus erythematosus (principal); M19.072 Primary osteoarthritis, left ankle and foot; Z96.662 Presence of left artificial ankle joint | CPT/HCPCS: 73130; 73630 ==

== ENCOUNTER 2025-01-02 07:06 | Outpatient (REF) | payer OTHER, SELFPAY ==
--- OUTSIDE RECORDS SUMMARY | 2025-01-02 07:09 | XMS_ITS | Clinical Summary ---
Author Organization [facility] Address [address] [place] [address] Care Team Providers Care Pole Lift Operator Name Role Phone Unavailable Primary Care [...]
--- OUTSIDE RECORDS SUMMARY | 2025-01-02 07:09 | XMS_ITS | Clinical Summary ---
Author Organization [facility] [employer] Address [address] [place] [address] Care Team Providers Care Plastics Fabrication Supervisor Name Role Phone Unavailable Primary Care [...]
--- OUTSIDE RECORDS SUMMARY | 2025-01-02 07:09 | XMS_ITS | Encounter Summary ---
Author Organization [facility] [employer] [facility] Address [address] [place] [address] Care Team Providers Care Corporate Fitness Program Coordinator Name Role Phone Unavailable Primary Care Provider [...]
[2025-01-02 09:06] LABS: Appearance Urine Clear; Glucose Urine UA Negative (Negative); PH 7.5 (5.0-9.0); Specific Gravity - Urine <= 1.005 (1.005-1.025)
[2025-01-02 11:32] LABS: Total Protein Urine Random < 7 mg/dL (<12)
== END 2025-01-02 07:07 | disposition home or self-care (01) ==
LOC: HO.LAB 07:06
PROVIDERS: PCP Internal Medicine; Visit Provider Internal Medicine Rheumatology
DX: M32.9 Systemic lupus erythematosus, unspecified (principal)
CPT/HCPCS: 36415; 81001; 82570; 84156; 85652; 86140; 86160; 86225

== ENCOUNTER 2025-01-15 10:39 | Outpatient (AMB) | payer OTHER, SELFPAY ==
[2025-01-15 10:46] VITALS: BP 122/78; PULSE 75; O2SAT 98; BMI 23.9
--- NOTE | 2025-01-15 10:46 | A.OFFPC_ITS ---
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: No Accompanied by: Self / Same As Patient Allergies gabapentin (GABAPENTIN) Allergy (Intermediate, Verified 01/15/25 11:33) GI UPSET acetaminophen (From Vicodin) Allergy (Unknown, Verified 01/15/25 11:33) Pruritis lorazepam (Ativan) Allergy (Unknown, Verified 01/15/25 11:33) Unknown hydrocodone (From VICODIN) Adverse Reaction (Mild, Verified 01/15/25 11:33) GI UPSET Medication List - Last Reconciled 01/15/25 by Raleigh Riddle MD acetaminophen (Tylenol) 650 mg PO Q6H PRN amlodipine 2.5 mg PO DAILY 90 days betamethasone dipropionate 0.05% topical bisacodyl (Dulcolax (bisacodyl)) 10 mg (2 x 5 mg) PO ONCE 5 days buspirone 7.5 mg PO BID cholecalciferol (vitamin D3) 25 mcg PO DAILY 90 days cyclobenzaprine 10 mg PO TID PRN 30 days hydrocortisone valerate 0.2% topical BID hydroxychloroquine 300 mg (1.5 x 200 mg) PO DAILY levothyroxine 100 mcg PO QAM 90 days omeprazole 20 mg PO DAILY polyethylene glycol 3350 (Miralax) 17 grams PO DAILY 1 day sennosides-docusate sodium 8.6-50 mg (Senna with Docusate Sodium) 2 tab-caps orally twice a week at bedtime 60 days umeclidinium 62.5 mcg/actuation (Incruse Ellipta) 1 inh inhalation DAILY 30 days valacyclovir 1,000 mg PO BID Tobacco use date assessed: 01/15/25 Fall risk assessment: No Falls in past year Last assessed Fall Risk: 01/15/25 Dental Screening Dental Screen Date: 01/15/25 Did you have a dental visit in the last 12 months?: No Did you have a dental problem in the last 6 months where you did not have access to dental care?: No Was dental information given to patient?: No HPI 4 months HPI0 Details - The patient is a 64 year old individua l presenting for follow-up on chronic conditions and evaluation of new respiratory symptoms. - The patient reports a 3-month history of a productive cough, significant shortness of breath, and weakness and that she has been feeling more SOB lately - The produced phlegm has had a dirty ap pearance since 2019 and is worse in the morning and at night. - Due to these symptoms, the patient has been unable to perform regular walks for the past four days. - A prior lung screening CT scan showed changes consistent with emphysema, and the patient has a history of smoking. - She has an upcoming follow up appointm ent with pulmonary at [facility] in February 2025 - The patient also has a history of hypo thyroidism, which is stable on the current medication dose. - The patient has a history of hyperlipi demia as well, with recent labs showing slightly higher levels, which the patient attributes to not eating right lately. - A skin lesion on the arm, initially th ought to be ringworm, was diagnosed as contact dermatitis at a walk-in clinic and has since resolved with a prescribed cream. - The patient is followed by rheumatolog y with Dr. Page and feels that hydroxychloroquine is not helping with her lupus symptoms. She could not make it to her rheumatology follow up recently and her next appointment is now scheduled out into March of next year (2025) - The patient is due for a colonoscopy b ut had to cancel a scheduled appointment due to lack of transportation and will follow up with Dr. Vidal in March 2025 for this as well - Influenza and COVID-19 vaccinations we re received in October 2024 at her local pharmacy She denies any fever, headaches or dizziness lately Denies any chest pains No nausea/vomiting, no abdominal pain No change in bowel habits noted Needs a few of her Rx refilled She had her follow-up labs done a couple of weeks ago - to discuss her results [facility] Medical History Migraine Personal history of nicotine dependence Low back pain Hypersomnia Nocturnal leg cramps Osteopenia Mixed hyperlipidemia Breast calcification, right Cutaneous lupus erythematosus Insomnia Cervical spinal stenosis Fibromyalgia GERD without esophagitis Vitamin D deficiency Tinea corporis Acquired hypothyroidism Depression Anxiety Lumbar degenerative disc disease Right shoulder pain Myalgia Arthralgia Benign essential hypertension Pure hypercholesterolemia Surgical History Hx of total ankle replacement Hx of endoscopy History of colonoscopy (~10/01/13) History of total ankle replacement Family History Father Hypertension Mother Stroke Cancer Diabetes Rheumatoid arthritis SLE (systemic lupus erythematosus) Paternal Grandmother Colon cancer Other Mental health problem Substance abuse Social History Household Members: Children Household Members Other:: Son Housing: Apartment Alcohol intake: current Alcohol intake frequency: does not drink Patient Tobacco Use Status: Former Tobacco user Tobacco use type: Cigarette e-Cigarette/Vaping Use: Never Used Second Hand Smoke Exposure: Yes Substance Use Type: Marijuana service: No Current occupational status: retired and disabled Sexual orientation: Straight/Heterosexual Gender identity: Female Cognitive needs: No Hearing needs: No Vision needs: Yes Questionnaire PHQ-9 Over the last 2 weeks, how often have you been bothered by any of the following problems? 1. Little interest or pleasure in doing things: not at all 2. Feeling down, depressed, or hopeless: not at all 3. Trouble falling or staying asleep, or sleeping too much: not at all 4. Feeling tired or having little energy: not at all 5. Poor appetite or overeating: not at all 6. Feeling bad about yourself - or that you are a failure or have let yourself or your family down: not at all 7. Trouble concentrating on things, such as reading the newspaper or watching television: not at all 8. Moving or speaking so slowly that other people could have noticed. Or the opposite - being so fidgety or restless that you have been moving around a lot more than usual: not at all 9. Thoughts that you would be better off or of hurting yourself in some way: not at all Total score: 0 Depression Screening Interpretation: Negative Depression Screening Done: Yes 08070 - PHQ-9 Billing: Yes Source: Developed by Drs. Michael Yao, Francine Godinez, Sriram Knott and colleagues, with an educational pramod from [employer]. Thrive Questionnaire Date Thrive assessed: 01/15/25 I am a: Patient What is your living situation today?: I choose not to answer this question Within the past 12 months, did the food you bought not last and you didn't have the money to get more?: I choose not to answer this question Within the past 12 months, did you worry whether your food would run out before you got money to buy more?: I choose not to answer this question Do you have trouble paying for medicines?: I choose not to answer this question Do you have trouble getting transportation to medical appointments?: I choose not to answer this question Do you have trouble paying your heating and electricity bill?: I choose not to answer this question Do you have trouble taking care of your child, family member or friend?: I choose not to answer this question Do you have trouble with day-to-day activities such as bathing, preparing meals, shopping, managing finances, etc.?: I choose not to answer this question Are you currently unemployed and looking for a job?: I choose not to answer this question Are you interested in more education?: I choose not to answer this question Please select the resources that you would like help with: None Currently or been in a relationship where the following occur: I choose not to answer THRIVE Score: 0 AUDIT C Alcohol Use Questionnaire (AUDIT-C) 1. How often do you have a drink containing alcohol?: Never 3. How often do you have six or more drinks on one occasion?: Never Total Score: 0 Score Reviewed/Action Taken: Yes MARGARITO-7 AMB Questionnaire MARGARITO-7 Date MARGARITO - 7 assessed: 01/15/25 Feeling nervous, anxious, or on edge: 0 = Not at all Not being able to stop or control worryin = Not at all Worrying too much about different things: 0 = Not at all Trouble relaxin = Not at all Being so restless that it is hard to sit still: 0 = Not at all Becoming easily annoyed or irritable: 0 = Not at all Feeling afraid as if something awful might happen: 0 = Not at all Total MARGARITO-7 score (0-4 normal; 5-9 mild; 10-14 moderate; 15-21 severe): 0 Source: Developed by Drs. Michael Yao, Francine Godinez, Sriram Knott and colleagues, with an educational pramod from [employer]. Review of Systems Const Denies chills, Reports fatigue, Denies fever(s) and Denies headache(s) ENT Denies dysphagia, Denies dizziness, Denies otalgia, Denies headache(s), Denies neck pain, Denies odynophagia and Denies sore throat Card Denies chest pain, Denies rapid heart rate, Denies irregular heart rhythm, Denies palpitations, Reports dyspnea and Reports dyspnea on exertion Resp Denies chest congestion, Reports cough (on and off; coughs up dirty looking phlegm), Reports dyspnea, Reports dyspnea on exertion and Denies wheezing GI Denies abdominal pain, Denies constipation, Denies dysphagia, Denies heartburn, Denies diarrhea, Denies nausea, Denies odynophagia and Denies vomiting Denies hematuria, Denies urinary frequency, Denies dysuria and Denies urinary urgency Musc Reports back pain (over the mid to lower back and lately on the right midthoracic area), Reports myalgias (diffuse), Reports arthralgias (on and off, involving multiple joints and increased lately-see HPI), Denies neck pain and Reports stiffness Skin/Breast Denies rash Neuro Denies dizziness, Denies headache(s) and Denies paresthesias Psych Reports anxiety and Denies depression Endo Reports fatigue and Denies palpitations Torres/Lymph Denies easy bruising Aller/Immun Denies wheezing Physical exam (Primary Care) Vital Signs: Last Vital Signs Pulse 75 01/15/25 10:46 BP 122/78 01/15/25 10:46 Pulse Ox 98 01/15/25 10:46 Oxygen Delivery Method Room Air 01/15/25 10:46 BMI result Body Mass Index 23.9 Tobacco/Smoking Status: Tobacco use Status Tobacco use date assessed 01/15/25 01/15/25 10:51 Patient Tobacco Use Status Former Tobacco user 01/15/25 10:51 Tobacco use type Cigarette 01/15/25 10:51 e-Cigarette/Vaping Use Never Used 01/15/25 10:51 PHQ-9: PHQ-9 Score PHQ-9: Total score 0 01/15/25 11:35 Depression Screening Interpretation: Negative Thrive Assessment: Date of Thrive Assessment Date Thrive assessed 01/15/25 01/15/25 10:51 Currently or been in a relationship where the following occur: I choose not to answer Const General: no acute distress and alert HENMT Ears: TM's normal bilaterally and EAC's normal Throat: Yes posterior oropharynx normal and Yes tonsils normal (no TP congestion) Neck Neck: Yes no lymphadenopathy and Yes supple Thyroid: Thyroid normal Resp Auscultation: no rales, rhonchi (occasional) throughout, wheezes (faint, at times) expiratory wheezes and diminished lung sounds bilateral Cardio Rate: regular rate Rhythm: regular rhythm Heart sounds: no murmurs GI Palpation (GI): Soft to palpation and nontender Auscultation: normal bowel sounds General: Yes no CVA tenderness Back/Spine/Pelvis Back: no CVA tenderness Cervical Spine: cervical muscular tenderness (mild) and Cervical spine tenderness Thoracic/Lumbar Spine: paraspinal muscle tenderness bilaterally in the upper thoracic, in the mid thoracic, in the lower thoracic, in the upper lumbar, in the mid lumbar and in the lower lumbar and lumbar spinal tenderness Skin Rashes: no rashes Extrem Other: (+) tenderness over multiple joints bilaterally, including shoulders, elbows, hands and knees General: Yes no clubbing, cyanosis or edema Results Reviewed Results Reviewed: Laboratory Tests 12/29/24 01/02/25 01/02/25 06:11 07:11 07:18 WBC 8.3 Hgb 13.8 Hct 41.4 Plt Count 233 ESR 7 Sodium 137 Potassium 4.8 Creatinine 0.73 Estimated GFR > 60 Fasting Glucose 87 Calcium 9.5 AST 47 H ALT 55 H Triglycerides 162 H Cholesterol 210 H LDL Cholesterol, Calc 116 H HDL Cholesterol 62 TSH 5.47 H Free T4 0.95 Ur Specific [place] <= 1.005 Urine Protein Negative Urine Glucose (UA) Negative Urine Blood Negative Urine Nitrite Negative Ur Leukocyte Esterase Negative Double Strand DNA Ab <1 Complement C3 114 Complement C4 14 L Coding Level of Care Code Est Pt Level 4 (25802) Diagnoses Cutaneous lupus erythematosus L93.2 Fibromyalgia M79.7 Arthralgia, unspecified joint M25.50 Joint pain location: unspecified Lung bullae J43.9 Mixed hyperlipidemia E78.2 Benign essential hypertension I10 Acquired hypothyroidism E03.9 Cervical spinal stenosis M48.02 Degeneration of intervertebral disc of lumbar region with discogenic back pain M51.360 Disc-related pain type: discogenic back pain only Osteopenia, unspecified location M85.80 Osteopenia location: unspecified Migraine without status migrainosus, not intractable, unspecified migraine type G43.909 Intractability: not intractable Migraine type: unspecified Status migrainosus presence: without status migrainosus Vitamin D deficiency E55.9 GERD without esophagitis K21.9 Insomnia, unspecified type G47.00 Insomnia type: unspecified Anxiety F41.9 Episode of recurrent major depressive disorder, unspecified depression episode severity F33.9 Active/Remission status: currently active Depression Type: major depressive disorder Major depression episode severity: unspecified Major depression recurrence: recurrent Additional Codes PHQ-9 - 99828 - PHQ-9 Billing: Yes ([id number]) Assessment & Plan Assessment & Plan (1) Cutaneous lupus erythematosus: Code(s): L93.2 - Other local lupus erythematosus Category: Medical Plan: Continue Hydroxychloroquine 300 mg QD Follow up with rheumatology as scheduled Have emphasized to patient again the importance of avoidance of sun exposure (2) Fibromyalgia: Code(s): M79.7 - Fibromyalgia Category: Medical Plan: Patient is again encouraged to continue to stay active and exercise regularly She has been referred to physical therapy in the past when needed with (+) slight improvement of her symptoms Patient also continues to follow [facility] for pain management and trigger point injections She follows up also with [facility] (Dr. Rodriguez) regularly - MS has been previously ruled out in her case Continue Cyclobenzaprine 5 mg TID PRN (3) Arthralgia: Code(s): M25.50 - Pain in unspecified joint Category: Medical Qualifiers: Joint pain location: unspecified Qualified Code(s): M25.50 - Pain in unspecified joint Plan: Follow up with rheumatology as scheduled - she has been diagnosed with polyarthralgia in addition to her fibromyalgia and her cutaneous lupus (4) Lung bullae: Code(s): J43.9 - Emphysema, unspecified Category: Medical Plan: She has a right lower lobe pulmonary cyst or bulla measuring about 1.1 cm seen incidentally on her abdominal / pelvic CT done at [facility] back in 01/2016 Her recent low dose CT lung screening revealed an 8 mm nodular density seen in the superior segment of the right lower lobe that is likely benign, as well as (+) minimal changes of emphysema A repeat low dose CT lung screening was recommended in [address] lung screening in June 2024 came out okay - benign appearance. Recommend to continue annual screening with low dose chest CT in 12 months. Patient has sounds like is recently experiencing symptoms/flare-up of COPD - will go ahead and start her on a trial of Incruse Ellipta 62.5 mcg 1 inhalation QD She is advised to keep her appointment with pulmonary at [facility] in February 2025 as scheduled (5) Mixed hyperlipidemia: Code(s): E78.2 - Mixed hyperlipidemia Category: Medical Plan: Results of her labs done a couple of weeks ago reviewed and discussed with patient - she is advised that her cholesterol levels are within normal range but should ideally be optimized to an LDL cholesterol of less than 100 mg/dL Reinforce low-cholesterol diet Will recheck her labs and fasting lipids in 4 months for follow-up (6) Benign essential hypertension: Code(s): I10 - Essential (primary) hypertension Category: Medical Plan: Reinforced low sodium diet - goal is systolic BP of 120 mm or less Continue Amlodipine 2.5 mg QD (7) Acquired hypothyroidism: Code(s): E03.9 - Hypothyroidism, unspecified Category: Medical Plan: Her TFTs were normal on her recent labs Continue Levothyroxine 100 mcg QD Will have her recheck her TFTs in 4 months for follow-up (8) Cervical spinal stenosis: Comment: (+) cervical radiculopathy, worse on the left side Code(s): M48.02 - Spinal stenosis, cervical region Category: Medical Plan: Cervical spine imaging done a couple of years ago revealed (+) neuroforaminal stenosis, most pronounced at C6-C7 and greater on the left than the right side Follow-up with [facility] as scheduled for pain management (9) Lumbar degenerative disc disease: Code(s): M51.36 - Other intervertebral disc degeneration, lumbar region Category: Medical Qualifiers: Disc-related pain type: discogenic back pain only Qualified Code(s): M51.360 - Other intervertebral disc degeneration, lumbar region with discogenic back pain only Plan: Reinforced activity and weight lifting restrictions Lumbar spine MRI done at [facility] on 08/22/2019 showed a right-sided foraminal disc osteophyte protrusion at the L4-L5 level that contacts the right L4 nerve root as well as multilevel degenerative changes She was referred to and seen by Neurosurgery and was advised that there is no surgical indication at the time; she was then referred to [facility] who recommended PT and OT only as needed Follow up with [facility] as scheduled (10) Osteopenia: Code(s): M85.80 - Other specified disorders of bone density and structure, unspecified site Category: Medical Qualifiers: Osteopenia location: unspecified Qualified Code(s): M85.80 - Other specified disorders of bone density and structure, unspecified site Plan: Patient is advised that her BASELINE BMD done in January 2023 revealed (+) o steopenia based on the lowest T-score value of -1.4 in the lumbar spine; her T- score in the left femoral neck was also low at -1.2 Have recommended to patient to make sure she stays active and continue to try to exercise regularly, and to also contune taking OTC Vitamin D and Calcium daily Patient would like to hold off on Rx for Tx for now, and will recheck her BMD in 2 to 3 years for follow up (11) Migraine: Code(s): G43.909 - Migraine, unspecified, not intractable, without status migrainosus Category: Medical Qualifiers: Intractability: not intractable Migraine type: unspecified Status migrainosus presence: without status migrainosus Qualified Code(s): G43.909 - Migraine, unspecified, not intractable, without status migrainosus Plan: Reinforced again avoidance of any potential migraine triggers (12) Vitamin D deficiency: Code(s): E55.9 - Vitamin D deficiency, unspecified Category: Medical Plan: Continue Vitamin D3 1000 units QD (13) GERD without esophagitis: Code(s): K21.9 - Gastro-esophageal reflux disease without esophagitis Category: Medical Plan: Dietary restrictions reinforced Continue Omeprazole 20 mg QD (14) Insomnia: Code(s): G47.00 - Insomnia, unspecified Category: Medical Qualifiers: Insomnia type: unspecified Qualified Code(s): G47.00 - Insomnia, unspecified Plan: Sleep hygiene reinforced She used to take Zolpidem in the past but has been only taking OTC Melatonin 6 mg Q HS PRN for the past year or two with good results (15) Anxiety: Code(s): F41.9 - Anxiety disorder, unspecified Category: Medical Plan: Continue Lorazepam 0.5 mg QD PRN and Buspirone 7.5 mg QD (16) Depression: Code(s): F32.9 - Major depressive disorder, single episode, unspecified Category: Medical Qualifiers: Active/Remission status: currently active Depression Type: major depressive disorder Major depression episode severity: unspecified Major depression recurrence: recurrent Qualified Code(s): F33.9 - Major depressive disorder, recurrent, unspecified Plan: Patient could not tolerate multiple antidepressants in the past Has been doing a lot better since her TMS at [facility] that she completed back in 2019 Follow-up with Psychiatry as scheduled Plan Follow up in 4 months Orders: Orders Free T4 (Free Thyroxine) 4 Months E03.9 - Hypothyroidism, unspecified Comprehensive [place]. Panel Fast 4 Months E78.00 - Pure hypercholesterolemia, unspecified Thyroid Stimulating Hormone 4 Months E03.9 - Hypothyroidism, unspecified Complete Blood Count Auto Diff 4 Months D64.9 - Anemia, unspecified Liver Panel 4 Months R79.89 - Other specified abnormal findings of blood chemistry Medications: New umeclidinium 62.5 mcg/actuation (Incruse Ellipta) 1 inh inhalation DAILY 30 ea 3RF 30 days Refilled valacyclovir 1,000 mg PO BID 14 tabs 1RF buspirone 7.5 mg PO BID 180 tabs 0RF F41.9 - Anxiety disorder, unspecified cyclobenzaprine 10 mg PO TID PRN 90 tabs 0RF muscle spasm 30 days M79.7 - Fibromyalgia
--- OUTSIDE RECORDS SUMMARY | 2025-01-15 11:25 | XMS_ITS | Clinical Summary ---
Author Organization [facility] [employer] Address [address] [place] [address] Care Team Providers Care Radiology Specialist Name Role Phone Unavailable Primary Care [...] of 2) 02/16/2010 COVID-19 Vaccine (1 - 2024-2 6 season) 2024 Influenza Vaccine (#1) 2024 RSV [...]
--- OUTSIDE RECORDS SUMMARY | 2025-01-15 11:25 | XMS_ITS | Encounter Summary ---
Author Organization [facility] [employer] [facility] Address [address] [place] [address] Care Team Providers Care Tool Checker Name Role Phone Unavailable Primary Care Provider [...]
--- OUTSIDE RECORDS SUMMARY | 2025-01-15 11:25 | XMS_ITS | Clinical Summary ---
Author Organization [facility] Address [address] [place] [address] Care Team Providers Care Cash Sales Audit Clerk Name Role Phone Unavailable Primary Care Provider [...]
== END 2025-01-15 11:38 | disposition home or self-care (01) ==
LOC: HO.HMCH 10:40
PROVIDERS: PCP Internal Medicine; Visit Provider Internal Medicine
DX: L93.2 Other local lupus erythematosus (principal); M79.7 Fibromyalgia; M25.50 Pain in unspecified joint; J43.9 Emphysema, unspecified; E78.2 Mixed hyperlipidemia; I10 Essential (primary) hypertension; E03.9 Hypothyroidism, unspecified; M48.02 Spinal stenosis, cervical region; M51.360 Other intervertebral disc degeneration, lumbar region with discogenic back pain only; M85.80 Other specified disorders of bone density and structure, unspecified site; G43.909 Migraine, unspecified, not intractable, without status migrainosus; E55.9 Vitamin D deficiency, unspecified; K21.9 Gastro-esophageal reflux disease without esophagitis; G47.00 Insomnia, unspecified; F41.9 Anxiety disorder, unspecified; F33.9 Major depressive disorder, recurrent, unspecified

== ENCOUNTER → 2025-01-15 10:39 | Outpatient (BNVA) | payer OTHER, SELFPAY | PROVIDERS: PCP Internal Medicine; Visit Provider Internal Medicine | DX: M51.360 Other intervertebral disc degeneration, lumbar region with discogenic back pain only (principal); R05.9 Cough, unspecified; E03.9 Hypothyroidism, unspecified; L93.2 Other local lupus erythematosus; M79.7 Fibromyalgia; J43.9 Emphysema, unspecified; E78.2 Mixed hyperlipidemia; I10 Essential (primary) hypertension; M48.02 Spinal stenosis, cervical region; M85.80 Other specified disorders of bone density and structure, unspecified site; G43.909 Migraine, unspecified, not intractable, without status migrainosus; E55.9 Vitamin D deficiency, unspecified; K21.9 Gastro-esophageal reflux disease without esophagitis; G47.00 Insomnia, unspecified; F41.9 Anxiety disorder, unspecified; F33.9 Major depressive disorder, recurrent, unspecified | CPT/HCPCS: 96127; 99212 ==

== ENCOUNTER 2025-02-02 13:25 | Outpatient (REF) | payer MEDICARE, MEDICAID, SELFPAY ==
--- NOTE | ~2025-02-02 | MM_ITS ---
EXAMINATION: MM SCREENING DIGITAL BREAST TOMOSYNTHESIS, BILATERAL CLINICAL INFORMATION: Screening. Asymptomatic. 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 COMPARISON: Comparison made to multiple prior, most recent July 12, 2022, and most remote September 09, 2018. TECHNIQUE: Digital breast tomosynthesis is performed in mediolateral oblique and craniocaudal views along with computer-aided detection (CAD). Synthesized 2D images are generated from the tomosynthesis. FINDINGS: BREAST COMPOSITION: The breasts are heterogeneously dense, which may obscure small masses. RIGHT BREAST: Tissue marker from previous needle core biopsy. No significant masses, suspicious calcifications or other abnormalities are seen. LEFT BREAST: No significant masses, suspicious calcifications or other abnormalities are seen. MM/MM tomosynthesis screening BI IMPRESSION: BILATERAL BREASTS: Benign, no mammographic evidence of malignancy. Normal interval follow-up is recommended in 12 months. ASSESSMENT: BI-RADS: Category 2: Benign RECOMMENDATION: Routine annual mammography screening. FOLLOW-UP: 1 year F/U This examination should not preclude the clinical evaluation of a suspicious palpable abnormality. This patient's information was entered into a reminder system with a target due date for their next mammogram. Electronically signed by: Marlyn Jara MD 02/02/2025 06:14 PM JASON
--- NOTE | ~2025-02-02 | MM_ITS ---
EXAMINATION: DXA BONE DENSITY AXIAL HISTORY: M85.80 - Other specified disorders of bone density and structure, unspecified... TECHNIQUE: [employer] Dual energy absorptiometry (DEXA) of the lumbar spine, total left hip, and femoral neck was performed. COMPARISON: Comparison is made with the prior examination dated 01/31/2023. FINDINGS: The bone mineral density of the lumbar spine is 0.982 g/cm2, corresponding to a T-score of -1.7, and a Z-score of 0.1. This is indicative of osteopenia. This represents a BMD change of -3.0% compared to the prior exam. This is statistically significant. The bone mineral density of the left total hip is 0.986 g/cm2, corresponding to a T-score of -0.2, and a Z-score of 1.2. This is indicative of normal bone mineral density. This represents a BMD change of -0.4% compared to the prior exam. This is not statistically significant. The bone mineral density of the left femoral neck is 0.840 g/cm2, corresponding to a T-score of -1.4, and a Z-score of 0.2. This is indicative of osteopenia. This represents a BMD change of -3.9% compared to the prior exam. FRACTURE RISK: The FRAX index suggests a ten year probability of major osteoporotic fracture of 8.3%, and of hip fracture 0.9%. MM/XR DEXA axial skeleton IMPRESSION: Based on bone mineral density, and according to World Health Organization (WHO) criteria, the diagnosis is consistent with osteopenia. Statistically, 68% of repeat scans fall within 1 SD (+/- 0.010 g/cm2 for AP spine L1-L4) and 1 SD (+/- 0.012 g/cm2 for femur total) FRAX is a trademark of the [employer]'s [place] for Metabolic Bone Disease, a World Health Organization (WHO) Collaborating Center. Electronically signed by: Michael Cruz MD 02/02/2025 02:29 PM [facility]
--- OUTSIDE RECORDS SUMMARY | 2025-02-02 18:55 | XMS_ITS | Encounter Summary ---
Author Organization [facility] [employer] [facility] Address [address] [place] [address] Care Team Providers Care Naval Inspector Name Role Phone Unavailable Primary Care Provider [...]
--- OUTSIDE RECORDS SUMMARY | 2025-02-02 18:55 | XMS_ITS | Clinical Summary ---
Author Organization [facility] [employer] Address [address] [place] [address] Care Team Providers Care Spring Winder Name Role Phone Unavailable Primary Care Provider [...]
--- OUTSIDE RECORDS SUMMARY | 2025-02-02 18:55 | XMS_ITS | Clinical Summary ---
Author Organization [facility] Address [address] [place] [address] Care Team Providers Care Rotor Casting Machine Operator Name Role Phone Unavailable Primary [...]
== END 2025-02-02 13:26 | disposition home or self-care (01) ==
LOC: HO.MAMMO 13:25
PROVIDERS: PCP Internal Medicine; Visit Provider Advanced Practice Midwife
DX: Z12.31 Encounter for screening mammogram for malignant neoplasm of breast (principal); M85.80 Other specified disorders of bone density and structure, unspecified site; Z78.0 Asymptomatic menopausal state
CPT/HCPCS: 77063; 77067; 77080

== ENCOUNTER → 2025-02-02 14:00 | Outpatient (BNV) | payer MEDICARE, MEDICAID, SELFPAY | PROVIDERS: PCP Internal Medicine; Visit Provider Radiology Diagnostic Radiology | DX: Z12.31 Encounter for screening mammogram for malignant neoplasm of breast (principal); E28.39 Other primary ovarian failure | CPT/HCPCS: 77063; 77067; 77080 ==

== ENCOUNTER 2025-02-09 09:08 | Outpatient (AMB) | payer MEDICARE, MEDICAID, SELFPAY ==
[2025-02-09 09:16] VITALS: BP 126/70; BMI 23.7
--- NOTE | 2025-02-09 09:16 | MHC.OFFVIS ---
Vital Signs 02/09/25 09:16 Height 5 ft 3 in Weight 134 lb BMI 23.7 BP 126/70 Blood Pressure Location Lt brachial Position Sitting Intake Visit Reasons: dexa follow up Intake Note: here to review dexa scan results Wire Machine Cutter Required: No Information Interpreted: non-clinical & clinical Glassworker: Glassworker Present (Kirti) Accompanied by: Self / Same As Patient Allergies gabapentin (GABAPENTIN) Allergy (Intermediate, Verified 02/09/25 09:21) GI UPSET acetaminophen (From Vicodin) Allergy (Unknown, Verified 02/09/25 09:21) Pruritis lorazepam (Ativan) Allergy (Unknown, Verified 02/09/25 09:21) Unknown hydrocodone (From VICODIN) Adverse Reaction (Mild, Verified 02/09/25 09:21) GI UPSET Medication List - Last Reconciled 02/09/25 by Ellen Stanley LPN acetaminophen (Tylenol) 650 mg PO Q6H PRN amlodipine 2.5 mg PO DAILY 90 days betamethasone dipropionate 0.05% topical bisacodyl (Dulcolax (bisacodyl)) 10 mg (2 x 5 mg) PO ONCE 5 days buspirone 7.5 mg PO BID cholecalciferol (vitamin D3) 25 mcg PO DAILY 90 days cyclobenzaprine 10 mg PO TID PRN 30 days hydrocortisone valerate 0.2% topical BID hydroxychloroquine 300 mg (1.5 x 200 mg) PO DAILY levothyroxine 100 mcg PO QAM 90 days omeprazole 20 mg PO DAILY polyethylene glycol 3350 (Miralax) 17 grams PO DAILY 1 day sennosides-docusate sodium 8.6-50 mg (Senna with Docusate Sodium) 2 tab-caps orally twice a week at bedtime 60 days umeclidinium 62.5 mcg/actuation (Incruse Ellipta) 1 inh inhalation DAILY 30 days valacyclovir 1,000 mg PO BID Do you need a note to return to daycare/school/sports/work: No HPI Comments Details: Patient is here today for a follow up bone density results. Currently takes calcium and vitamin-D and walks regularly. No other concerns today. [facility] Medical History Migraine Personal history of nicotine dependence Low back pain Hypersomnia Nocturnal leg cramps Osteopenia Mixed hyperlipidemia Breast calcification, right Cutaneous lupus erythematosus Insomnia Cervical spinal stenosis Fibromyalgia GERD without esophagitis Vitamin D deficiency Tinea corporis Acquired hypothyroidism Depression Anxiety Lumbar degenerative disc disease Right shoulder pain Myalgia Arthralgia Benign essential hypertension Pure hypercholesterolemia Surgical History Hx of total ankle replacement Hx of endoscopy History of colonoscopy (~10/01/13) History of total ankle replacement Family History Father Hypertension Mother Stroke Cancer Diabetes Rheumatoid arthritis SLE (systemic lupus erythematosus) Paternal Grandmother Colon cancer Other Mental health problem Substance abuse Social History Household Members: Children Household Members Other:: Son Housing: Apartment Alcohol intake: current Alcohol intake frequency: does not drink Patient Tobacco Use Status: Former Tobacco user Tobacco use type: Cigarette e-Cigarette/Vaping Use: Never Used Second Hand Smoke Exposure: Yes Substance Use Type: Marijuana service: No Current occupational status: retired and disabled Sexual orientation: Straight/Heterosexual Gender identity: Female Cognitive needs: No Hearing needs: No Vision needs: Yes Female Reproductive History Menstrual Date of last pap smear: 04/26/20 History of abnormal pap smear: No Date of Mammogram: 02/02/25 Date of last Bone Density Screenin02/02/25 Physical Exam Vital Signs: Last Vital Signs BP 126/70 02/09/25 09:16 BMI result Body Mass Index 23.7 Results Reviewed Results Reviewed: [facility] [address] [place] [address] Mammography Report Signed Patient: Kassie Pereira MR#: [id number] : 1960 Acct:[id number] Age/Sex: 64 / F ADM Date: 02/02/25 Loc: [facility] Attending Dr: Amada Ivey CNM Ordering Physician: Amada Ivey CNM Results: Date of Service: 02/02/25 Follow Up: Procedure(s): XR DEXA axial skeleton Accession Number(s): [id number] cc: Raleigh Riddle MD; Amada Ivey CNM~ Reason For Exam: M85.80 - Other specified disorders of bone density and structure, unspec... EXAMINATION: DXA BONE DENSITY AXIAL HISTORY: M85.80 - Other specified disorders of bone density and structure, unspecified... TECHNIQUE: [employer] Dual energy absorptiometry (DEXA) of the lumbar spine, total left hip, and femoral neck was performed. COMPARISON: Comparison is made with the prior examination dated 01/31/2023. FINDINGS: The bone mineral density of the lumbar spine is 0.982 g/cm2, corresponding to a T-score of -1.7, and a Z-score of 0.1. This is indicative of osteopenia. This represents a BMD change of -3.0% compared to the prior exam. This is statistically significant. The bone mineral density of the left total hip is 0.986 g/cm2, corresponding to a T-score of -0.2, and a Z-score of 1.2. This is indicative of normal bone mineral density. This represents a BMD change of -0.4% compared to the prior exam. This is not statistically significant. The bone mineral density of the left femoral neck is 0.840 g/cm2, corresponding to a T-score of -1.4, and a Z-score of 0.2. This is indicative of osteopenia. This represents a BMD change of -3.9% compared to the prior exam. FRACTURE RISK: The FRAX index suggests a ten year probability of major osteoporotic fracture of 8.3%, and of hip fracture 0.9%. MM/XR DEXA axial skeleton IMPRESSION: Based on bone mineral density, and according to World Health Organization (WHO) criteria, the diagnosis is consistent with osteopenia. Statistically, 68% of repeat scans fall within 1 SD (+/- 0.010 g/cm2 for AP spine L1-L4) and 1 SD (+/- 0.012 g/cm2 for femur total) FRAX is a trademark of the [employer] [place] for Metabolic Bone Disease, a World Health Organization (WHO) Collaborating Center. Electronically signed by: Michael Cruz MD 02/02/2025 02:29 PM EST RP Dictated By: Michael Cruz MD Signed By: <Electronically signed by Michael Cruz MD in OV> 02/02/25 1429 DD/ 1410 TD/TT: 02/02/25 1425 Long Line Teamster: Assessment & Plan Assessment & Plan (1) Osteopenia: Code(s): M85.80 - Other specified disorders of bone density and structure, unspecified site Category: Medical Qualifiers: Osteopenia location: unspecified Qualified Code(s): M85.80 - Other specified disorders of bone density and structure, unspecified site Plan Discussed: Bone density results- MPRESSION: Based on bone mineral density, and according to World Health Organization (WHO) criteria, the diagnosis is consistent with osteopenia. Continue with calcium and vitamin-D along with weight-bearing exercise. Calcium and exercise handouts provided. Annual exam is scheduled. The patient expressed understanding and agreement with the plan of care. All of her questions and concerns were addressed to the best of my ability. This note is constructed using voice recognition software. While every effort has been made to ensure accuracy, pantograph engraver errors may have been included. Coding Level of Care Code Est Pt Level 3 (41125) Diagnoses Osteopenia, unspecified location M85.80 Osteopenia location: unspecified
--- OUTSIDE RECORDS SUMMARY | 2025-02-09 10:25 | XMS_ITS | Clinical Summary ---
Author Organization [facility] [employer] Address [address] [place] [address] Care Team Providers Care Product Test Engineer Name Role Phone Unavailable Primary Care [...]
--- OUTSIDE RECORDS SUMMARY | 2025-02-09 10:25 | XMS_ITS | Encounter Summary ---
Author Organization [facility] [employer] [facility] Address [address] [place] [address] Care Team Providers Care Tobacco Stripper Hand Name Role Phone Unavailable Primary Care Provider [...]
--- OUTSIDE RECORDS SUMMARY | 2025-02-09 10:25 | XMS_ITS | Clinical Summary ---
Author Organization [facility] Address [address] [place] [address] Care Team Providers Care Headliner Installer Name Role Phone Unavailable Primary Care Provider [...] of 2) 02/16/2010 COVID-19 Vaccine ( - 2024-2 6 season) 2024 RSV Vaccine 50 years and old er and Patients (1 - 1-dose 75+ series) 02/16/2035 Hepatitis B Vaccines Aged Out No long er eligible based on patient's age to complete this topic
== END 2025-02-09 10:00 | disposition home or self-care (01) ==
LOC: HO.HWS 09:09
PROVIDERS: PCP Internal Medicine; Visit Provider Advanced Practice Midwife
DX: M85.80 Other specified disorders of bone density and structure, unspecified site (principal)
CPT/HCPCS: 99213

== ENCOUNTER → 2025-02-09 09:08 | Outpatient (BNVA) | payer MEDICARE, MEDICAID, SELFPAY | PROVIDERS: PCP Internal Medicine; Visit Provider Advanced Practice Midwife | DX: M85.89 Other specified disorders of bone density and structure, multiple sites (principal) | CPT/HCPCS: 99212 ==